=== PATIENT | female | born 1980 | race African-American/Black ===

== ENCOUNTER 2016-08-05 16:54 | Inpatient (IN) | payer MEDICARE, OTHER ==
[~2016-08-05] VITALS: Ht 160 cm; Wt 104.3 kg
[~2016-08-05 16:54] MED LIST: ALBUTEROL SULFAT2 MG PO; AMIODARONE HCL200 MG ORAL; AMIODARONE HCL400 M1 ORAL; ASPIRIN EC81 MG ORAL; ATORVASTATIN CA20 MG ORAL; CARVEDILOL3.125 MG ORAL; CORDARONE200 M1 ORAL; GABAPENTIN100 MG ORAL; GABAPENTIN300 MG ORAL; IBUPROFEN600 MG ORAL; KLONOPIN0.5 MG ORAL; LISINOPRIL5 MG ORAL; TRAMADOL HCL50 MG ORAL; TYLENOL325 MG ORAL; [UNRECOGNIZED DRUG - OTHER] PO
--- NOTE | 2016-08-05 17:33 | Emergency Room Report ---
History of Present Illness General Chief Complaint: Dizziness Source: Patient Present Illness HPI Patient presents with complaints of increased falls Increased general weakness Patient reports having a severe stroke back in 2012 Paralyze her left side patient reports that she does ambulate with some assistance Denies any vomiting or diarrhea she did complain of left-sided chest pain as well Has had increased dizziness over the past 3 days she feels that her balance is also increasingly off Chest pain is 3/10 heaviness left-sided denies any radiation Allergies: Coded Allergies: No Known Allergies (Unverified , 05/15/15) Patient History Past Medical History: see triage record Pertinent Family History: none Reviewed Nursing Documentation: PMH: Agreed, PSxH: Agreed Nursing Documentation-PMH Hx Cardiac Problems: Yes Hx Hypertension: Yes Hx Pacemaker: Yes Hx Asthma: Yes Hx Cancer: No Hx Gastrointestinal Problems: No Hx Neurological Problems: Yes Hx Cerebrovascular Accident: Yes - left sided deficit Hx Weakness: Yes - L side Review of Systems All Other Systems: negative except mentioned in HPI Physical Exam Vital Signs Date Time Temp Pulse Resp B/P Pulse Ox O2 Delivery O2 Flow Rate FiO2 08/05/16 16:54 98.6 95 16 116/88 99 Room Air Sp02 EP Interpretation: reviewed, normal General Appearance: no apparent distress Head: normocephalic, atraumatic Eyes: bilateral eye PERRL ENT: normal pharynx, no angioedema Neck: full range of motion, supple, thyroid normal Respiratory: lungs clear, normal breath sounds, no rhonchi Cardiovascular #1: regular rate, rhythm, no edema Gastrointestinal: non tender, soft Musculoskeletal: other - Patient has paralysis of her left side the left hand is contracted, patient has decreased movement of that side, patient does have some minimal movement of her left foot, and states that she does ambulate with some assistance, Neurologic: alert, oriented x3, responsive Skin: no rash, warm/dry Lymphatic: no adenopathy Medical Decision Making Diagnostic Impression: Primary Impression: ACS (acute coronary syndrome) Additional Impressions: Hemiparesis affecting left side as late effect of cerebrovascular accident HTN (hypertension) Dizziness ER Course Patient is a fairly complex patient with multiple differential to consideration including but not limited to cardiac cardiopulmonary, intracranial and vascular emergencies Patient's CT head does not show any obvious acute disease Blood work is at baseline levels Given the patient's multiple comorbidities and history consideration for CVA versus TIA is also made and the patient is a further inpatient care Labs Test 08/05/16 16:41 08/06/16 06:15 White Blood Count 5.1 K/UL (4.8-10.8) 4.0 K/UL (4.8-10.8) Red Blood Count 4.28 M/UL (4.20-5.40) 3.80 M/UL (4.20-5.40) Hemoglobin 11.4 G/DL (12.0-16.0) 10.3 G/DL (12.0-16.0) Hematocrit 37.3 % (37.0-47.0) 33.2 % (37.0-47.0) Mean Corpuscular Volume 87 FL (80-99) 87 FL (80-99) Mean Corpuscular Hemoglobin 26.7 PG (27.0-31.0) 27.0 PG (27.0-31.0) Mean Corpuscular Hemoglobin Concent 30.6 G/DL (32.0-36.0) 30.9 G/DL (32.0-36.0) Red Cell Distribution Width 15.9 % (11.6-14.8) 15.8 % (11.6-14.8) Platelet Count 98 K/UL (150-450) 181 K/UL (150-450) Mean Platelet Volume 7.9 FL (6.5-10.1) 7.4 FL (6.5-10.1) Neutrophils (%) (Auto) % (45.0-75.0) 59.0 % (45.0-75.0) Lymphocytes (%) (Auto) % (20.0-45.0) 24.9 % (20.0-45.0) Monocytes (%) (Auto) % (1.0-10.0) 15.5 % (1.0-10.0) Eosinophils (%) (Auto) % (0.0-3.0) 0.2 % (0.0-3.0) Basophils (%) (Auto) % (0.0-2.0) 0.5 % (0.0-2.0) Differential Total Cells Counted 100 Neutrophils % (Manual) 64 % (45-75) Lymphocytes % (Manual) 26 % (20-45) Monocytes % (Manual) 9 % (1-10) Eosinophils % (Manual) 0 % (0-3) Basophils % (Manual) 1 % (0-2) Band Neutrophils 0 % (0-8) Platelet Estimate Decreased Platelet Morphology Normal Hypochromasia 1+ Anisocytosis 1+ Sodium Level 139 mEQ/L (135-145) 142 mEQ/L (135-145) Potassium Level 4.6 mEQ/L (3.4-4.9) 4.4 mEQ/L (3.4-4.9) Chloride Level 103 mEQ/L (98-107) 106 mEQ/L (98-107) Carbon Dioxide Level 22 mEQ/L (20-30) 23 mEQ/L (20-30) Anion Gap 14 (5-15) 13 (5-15) Blood Urea Nitrogen 11 mg/dL (7-23) 10 mg/dL (7-23) Creatinine 1.2 mg/dL (0.5-0.9) 1.2 mg/dL (0.5-0.9) Estimat Glomerular Filtration Rate > 60 mL/min (>60) > 60 mL/min (>60) Glucose Level 80 mg/dL (74-106) 79 mg/dL (74-106) Calcium Level 8.4 mg/dL (8.6-10.2) 8.2 mg/dL (8.6-10.2) Total Bilirubin 0.3 mg/dL (0.0-1.2) Aspartate Amino Transf (AST/SGOT) 40 U/L (5-40) Alanine Aminotransferase (ALT/SGPT) 21 U/L (3-33) Alkaline Phosphatase 60 U/L (35-104) Total Creatine Kinase 194 U/L (26-140) Creatine Kinase MB 1.7 ng/mL (< 3.8) Creatine Kinase MB Relative Index 0.8 Troponin I < 0.30 ng/mL (<=0.30) < 0.30 ng/mL (<=0.30) Pro-B-Type Natriuretic Peptide 188 pg/mL (0-125) Total Protein 6.5 g/dL (6.6-8.7) Albumin 3.6 g/dL (3.5-5.2) Globulin 2.9 g/dL Albumin/Globulin Ratio 1.2 (1.0-2.7) EKG Diagnostic Results Rate: normal Rhythm: NSR ST Segments: other - Nonspecific ST and T-wave changes Rhythm Strip Diag. Results EP Interpretation: yes Rate: 77 Rhythm: NSR, no PVC's, no ectopy Chest X-Ray Diagnostic Results EP Interpretation: Yes Findings: no consolidation, no effusion, no pneumothorax Number of Views: 1 CT/MRI/US Diagnostic Results CT/MRI/US Diagnostic Results : Impression CT head no acute disease Last Vital Signs Date Time Temp Pulse Resp B/P Pulse Ox O2 Delivery O2 Flow Rate FiO2 08/05/16 16:54 98.6 95 16 116/88 99 Room Air Status: improved Disposition: ADMITTED INPATIENT Condition: Serious SALLY GUERRERO D.O. Aug 05, 2016 17:33
[2016-08-05 17:59] LABS: MEAN CORPUSCULAR HEMOGLOBIN 26.7 PG (27.0-31.0); MEAN CORPUSCULAR HGB CONC 30.6 G/DL (32.0-36.0); MEAN CORPUSCULAR VOLUME 87 FL (80-99); MEAN PLATELET VOLUME 7.9 FL (6.5-10.1); PLATELET COUNT 98 K/UL (150-450); RED BLOOD COUNT 4.28 M/UL (4.20-5.40); RED CELL DISTRIBUTION WIDTH 15.9 % (11.6-14.8); WHITE BLOOD COUNT 5.1 K/UL (4.8-10.8)
[2016-08-05 18:12] LABS: ALANINE AMINOTRANSFERASE 21 U/L (3-33); ALBUMIN/GLOBULIN RATIO 1.2 (1.0-2.7); ANION GAP 14 (5-15); ASPARTATE AMINO TRANSFERASE 40 U/L (5-40); CALCIUM 8.4 mg/dL (8.6-10.2); CARBON DIOXIDE 22 mEQ/L (20-30); CHLORIDE 103 mEQ/L (98-107); CREATININE 1.2 mg/dL (0.5-0.9); GLOMERULAR FILTRATION RATE > 60 mL/min (>60); HEMOLYSIS 31; POTASSIUM 4.6 mEQ/L (3.4-4.9); SODIUM 139 mEQ/L (135-145); TOTAL PROTEIN 6.5 g/dL (6.6-8.7)
[2016-08-05 18:15] LABS: TROPONIN I < 0.30 ng/mL (<=0.30)
[2016-08-05 18:23] VITALS: BP 138/79
[2016-08-05 18:23] LABS: CKMB 1.7 ng/mL (< 3.8)
[2016-08-05 18:53] LABS: ANISOCYTOSIS 1+; BASOPHILS % (MANUAL) 1 % (0-2); HYPOCHROMASIA 1+; LYMPHOCYTES % (MANUAL) 26 % (20-45); NEUTROPHILS % (MANUAL) 64 % (45-75); TOTAL CELLS COUNTED 100
[2016-08-05 18:54] LABS: BAND NEUTROPHILS % (MANUAL) 0 % (0-8); EOSINOPHILS % (MANUAL) 0 % (0-3); PLATELET ESTIMATE DECREASED; PLATELET MORPHOLOGY NORMAL
[2016-08-05 20:00] VITALS: BP 134/63
[2016-08-05] MEDS ORDERED: DiphenhydrAMINE 50mg/ml Inj IVP PRN (22:30)
[2016-08-06 00:34] VITALS: BP 123/65
[2016-08-06 04:13] VITALS: BP 129/76
[2016-08-06 07:08] LABS: BASOPHILS % (AUTO) 0.5 % (0.0-2.0); EOSINOPHILS % (AUTO) 0.2 % (0.0-3.0); LYMPHOCYTES % (AUTO) 24.9 % (20.0-45.0); MEAN CORPUSCULAR HGB CONC 30.9 G/DL (32.0-36.0); MEAN CORPUSCULAR VOLUME 87 FL (80-99); MEAN PLATELET VOLUME 7.4 FL (6.5-10.1); MONOCYTES % (AUTO) 15.5 % (1.0-10.0); PLATELET COUNT 181 K/UL (150-450); RED CELL DISTRIBUTION WIDTH 15.8 % (11.6-14.8); TROPONIN I < 0.30 ng/mL (<=0.30)
[2016-08-06 07:13] LABS: ANION GAP 13 (5-15); CALCIUM 8.2 mg/dL (8.6-10.2); CARBON DIOXIDE 23 mEQ/L (20-30); CHLORIDE 106 mEQ/L (98-107); CREATININE 1.2 mg/dL (0.5-0.9); GLOMERULAR FILTRATION RATE > 60 mL/min (>60); HEMOLYSIS 4; POTASSIUM 4.4 mEQ/L (3.4-4.9); SODIUM 142 mEQ/L (135-145)
[2016-08-06 08:17] VITALS: BP 124/64
--- NOTE | 2016-08-06 09:07 | Diagnostic Imaging Report ---
Indications: Dizziness, status post fall, history of prior CVA Technique: Spiral acquisitions obtained through the brain. Angled axial and coronal 5 x 5 mm slices were reconstructed. Total dose length product 1442 mGycm. CTDI vol(s) 7 mGy Comparison: 06/21/2016 Findings: Again demonstrated is a large area encephalomalacia involving much of the right frontal, parietal, and temporal lobes. This results in ex vacuo dilatation of the right lateral ventricle. Rightward midline shift is presumably also on an ex vacuo basis. No acute hemorrhage or edema. No mass effect or midline shift. Otherwise normal morales-white differentiation. Intact calvarium. Visualized orbits and sinuses are unremarkable. Findings are unchanged Impression: Large area of right hemispheric encephalomalacia, consistent with old right middle cerebral artery distribution infarct. Negative for acute intracranial bleed or mass effect This agrees with the preliminary interpretation provided overnight by Dr. Jung The CT scanner at [facility] is accredited by the [employer] and the scans are performed using protocols designed to limit radiation exposure to as low as reasonably achievable to attain images of sufficient resolution adequate for diagnostic evaluation.
[2016-08-06] MEDS: Amiodarone 200mg tab ORAL SCH (11:00)
[2016-08-06] MEDS: Albuterol 2mg Tab ORAL SCH ×4 (11:00→21:00)
[2016-08-06] MEDS: Aspirin EC 81mg tab ORAL SCH (11:00)
[2016-08-06] MEDS: Lisinopril 2.5mg tab ORAL SCH (11:00)
[2016-08-06 11:49] VITALS: BP 113/67
[2016-08-06] MEDS: Heparin 5000 units/ml inj SUBQ SCH ×2 (13:05→20:57)
[2016-08-06] MEDS: HYDROmorphone 1mg/ml Carpuject IVP PRN ×2 (13:10→18:06)
[2016-08-06] MEDS ORDERED: NS 275ml ONE (15:11)
[2016-08-06] MEDS ORDERED: Tubing IV Secondary IV ONE (15:11)
[2016-08-06] MEDS ORDERED: Albuterol ud Inhalation HHN PRN (15:15)
[2016-08-06 16:00] VITALS: BP 108/61
--- NOTE | 2016-08-06 17:30 | Cardiac Electrophysiology PN ---
Subjective Subjective [id number] Objective Last 24 Hour Vital Signs Date Time Temp Pulse Resp B/P Pulse Ox O2 Delivery O2 Flow Rate FiO2 08/06/16 17:04 57 08/06/16 16:00 97.5 57 20 108/61 100 Room Air 08/06/16 11:49 97.9 60 20 113/67 97 Room Air 08/06/16 11:00 160/62 08/06/16 11:00 98 140/62 08/06/16 08:17 97.9 61 20 124/64 99 Room Air 08/06/16 08:03 82 08/06/16 04:13 98.7 69 19 129/76 99 Room Air 08/06/16 04:00 56 08/06/16 00:34 98.2 73 18 123/65 100 Room Air 08/05/16 20:20 75 20 120/67 100 Room Air 08/05/16 20:00 97.5 73 18 134/63 100 Room Air 08/05/16 18:23 98.4 78 13 138/79 100 Room Air Intake and Output 08/05/16 08/06/16 19:00 07:00 Intake Total 0 ml Balance 0 ml Intake Oral 0 ml # Bowel Movements 1 Laboratory Tests Test 08/06/16 06:15 White Blood Count 4.0 K/UL (4.8-10.8) L Red Blood Count 3.80 M/UL (4.20-5.40) L Hemoglobin 10.3 G/DL (12.0-16.0) L Hematocrit 33.2 % (37.0-47.0) L Mean Corpuscular Volume 87 FL (80-99) Mean Corpuscular Hemoglobin 27.0 PG (27.0-31.0) Mean Corpuscular Hemoglobin Concent 30.9 G/DL (32.0-36.0) L Red Cell Distribution Width 15.8 % (11.6-14.8) H Platelet Count 181 K/UL (150-450) # Mean Platelet Volume 7.4 FL (6.5-10.1) Neutrophils (%) (Auto) 59.0 % (45.0-75.0) Lymphocytes (%) (Auto) 24.9 % (20.0-45.0) Monocytes (%) (Auto) 15.5 % (1.0-10.0) H Eosinophils (%) (Auto) 0.2 % (0.0-3.0) Basophils (%) (Auto) 0.5 % (0.0-2.0) Sodium Level 142 mEQ/L (135-145) Potassium Level 4.4 mEQ/L (3.4-4.9) Chloride Level 106 mEQ/L (98-107) Carbon Dioxide Level 23 mEQ/L (20-30) Anion Gap 13 (5-15) Blood Urea Nitrogen 10 mg/dL (7-23) Creatinine 1.2 mg/dL (0.5-0.9) H Estimat Glomerular Filtration Rate > 60 mL/min (>60) Glucose Level 79 mg/dL (74-106) Calcium Level 8.2 mg/dL (8.6-10.2) L Troponin I < 0.30 ng/mL (<=0.30) DIMITRIS PEDRO Aug 06, 2016 17:30
[2016-08-06] MEDS: CEFUROXIME 250 MG ORAL SCH (19:01)
[2016-08-06 20:00] VITALS: BP 106/60
--- NOTE | 2016-08-06 20:08 | History and Physical Report ---
DATE OF ADMISSION: 08/05/2016 CHIEF COMPLAINT: The patient is a 36-year-old, female, who presents with chief complaint of chest pain, sore throat, and cough. HISTORY OF PRESENT ILLNESS: It began on , 08/01/2016. The patient began to experience a sore throat. The patient also had dizziness. The patient was also having a nonproductive cough. The patient experienced frequent falls. On 08/05/2016, the patient began to experience chest pain. The patient presented to [facility]. The patient was admitted for chest pain to rule out acute coronary syndrome. PAST MEDICAL HISTORY: Significant for, 1. Coronary artery disease, status post myocardial infarction in 2011. 2. Hypertension. 3. History of cerebrovascular accident in 2011. 4. Left hemiparesis. 5. Hypercholesterolemia. 6. History of asthma. PAST SURGICAL HISTORY: Significant for pacemaker implantation in 2011. CURRENT MEDICATIONS: 1. Albuterol sulfate 2 mg one tablet p.o. 4 times daily. 2. Amiodarone 200 mg one tablet p.o. daily. 3. Aspirin 81 mg one tablet p.o. daily. 4. Atorvastatin 20 mg one tablet p.o. q.h.s. 5. Coreg 3.125 mg one tablet p.o. twice daily. 6. Klonopin 0.5 mg p.o. q.h.s. 7. Neurontin 300 mg one tablet p.o. 3 times daily. 8. Lisinopril 5 mg one tablet p.o. daily. ALLERGIES: No known drug allergies. SOCIAL HISTORY: The patient is single and is currently living in a board and care. The patient denies tobacco or alcohol use. The patient is disabled. REVIEW OF SYSTEMS: Constitutional: The patient denies weight loss or weight gain. The patient denies fevers or chills. HEENT: The patient complains of sore throat, as above. The patient denies headache or ear pain. Chest: The patient complains of some shortness of breath and a nonproductive cough. The patient denies wheezes. Abdomen: The patient denies nausea, vomiting, diarrhea, or constipation. Cardiovascular: The patient denies palpitations or chest pain. Genitourinary: The patient denies dysuria or increased frequency urination. Neuromuscular: The patient complains of generalized weakness with frequent falls. The patient denies seizures. PHYSICAL EXAMINATION: VITAL SIGNS: Temperature 98.7 degrees, respirations 19, pulse 69, and blood pressure 129/76. GENERAL: The patient is a well-developed, well-nourished, female, in no apparent distress. HEENT: Eyes, pupils are equal and responsive to light and accommodation. Extraocular movements are intact. NECK: Supple without lymphadenopathy. CHEST: Lungs are clear to auscultation bilaterally without wheezes or rales. CARDIOVASCULAR: Regular rhythm and rate. S1 and S2 normal without murmurs, rubs, or gallops. ABDOMEN: Soft, nontender, and nondistended. Positive bowel sounds. No evidence of hepatosplenomegaly. Currently, no rebound or guarding. EXTREMITIES: Negative for clubbing, cyanosis, or or edema. RECTAL/GENITAL: Refused. NEUROLOGICAL: The patient does have a left weakness when compared to the right. Motor strength is 3/5 on the left and 5/5 on the right. Deep tendon reflexes are 2+ plantar. LABORATORY AND DIAGNOSTIC DATA: WBC 5.1, hemoglobin 11.4, hematocrit 37.3, and platelets 98,000. Sodium 139, potassium 4.6, chloride 103, CO2 22, BUN 11, creatinine 1.2, and glucose 80. Troponin is normal less than 0.3. CT scan of the brain was reported within normal limits. ASSESSMENT: This is a 36-year-old female, 1. Chest pain. 2. Vertigo. 3. Pharyngitis. 4. Cough. 5. Hypertension. 6. Hypercholesterolemia. 7. Asthma. 8. Cerebrovascular disease. 9. Left hemiparesis. TREATMENT: 1. Chest pain. A Cardiology consultation was obtained with Dr. Julian Malagon. The patient was worked up for chest pain during a recent admission in 05/2016. The patient may require a Cardiolite stress test. We will follow recommendations of Cardiology. Serial troponin levels will be run. 2. Vertigo. This may be secondary to upper respiratory tract infection. Carotid duplex and Dopplers are pending. A CT scan of the brain was within normal limits. 3. Pharyngitis. The patient has been started empirically on Ceftin. 4. Cough. This may be secondary to bronchitis. The patient has been started on Ceftin as above. 5. Hypertension. Continue lisinopril and carvedilol as above. 6. Hypercholesterolemia. Continue Lipitor as above. 7. Asthma. The patient will be offered albuterol nebulizer q.4 hours p.r.n. 8. Cerebrovascular disease. 9. Left hemiparesis. Kiran Avila M.D. DR: IGNACIO JOB#: [id number] CC:
[2016-08-06] MEDS: clonazePAM 0.5mg tab ORAL SCH (20:56)
[2016-08-06] MEDS: Atorvastatin 20mg tab ORAL SCH (20:56)
[2016-08-07] VITALS: BP 104/56
--- NOTE | 2016-08-07 01:18 | Consultation ---
DATE OF CONSULTATION: 08/06/2016 CONSULTING PHYSICIAN: Julian Malagon M.D. REFERRING PHYSICIAN: Kiran Avila M.D. REASON FOR CONSULTATION: Syncope and chest pain. HISTORY OF PRESENT ILLNESS: The patient is a 36-year-old lady that I am familiar with multiple previous admissions. The patient has history of hypertension, coronary artery disease, history of stroke and left hemiplegia as well as history of [employer] defibrillator implantation in 2011 at [facility]. The patient presented to the hospital with weakness, dizziness, and syncope, and also complained of shortness of breath as well as mild chest discomfort. The patient was admitted to telemetry. Cardiology consultation was obtained for further evaluation. At the time of my evaluation, the patient denies any chest pain or shortness of breath. REVIEW OF SYSTEMS: Review of systems was performed and was negative other than what was mentioned in the history of present illness. PAST MEDICAL HISTORY: 1. Hypertension. 2. History of [employer] defibrillator in 2011. 3. Congestive heart failure. 4. History of supraventricular tachycardia. 5. Cerebrovascular accident with left hemiparesis. SOCIAL HISTORY: She lives at home. Does not smoke or drink alcohol. PHYSICAL EXAMINATION: VITAL SIGNS: Blood pressure 108/60, pulse 60, respirations 20, and temperature 97.5. HEAD AND NECK: Shows no JVD. LUNGS: Clear. CARDIOVASCULAR: Shows regular S1 and S2 with no gallop or murmur. Defibrillator in the left subclavian intact. ABDOMEN: Soft and nontender. EXTREMITIES: No pitting edema. LABORATORY AND DIAGNOSTIC DATA: White count of 4, hemoglobin 10.3, hematocrit 33, and platelet count 181,000. Sodium 142, potassium 4.4, BUN 10, creatinine 1.2. . Troponin negative x2. ASSESSMENT AND PLAN: 1. Atypical chest pain, the patient was ruled out for myocardial infarction already. Watch the patient on telemetry. Nuclear stress test in March 2016 showed nonischemic response, only fixed defect as well as old infarct. Her echocardiogram also in March 2016 showed ejection fraction 45% to 50%. We will repeat the echocardiogram. 2. Paroxysmal atrial fibrillation, . 3. Cardiomyopathy ejection fraction 40% on Coreg 3.125 mg b.i.d., lisinopril 5 mg daily, . 4. Hyperlipidemia on Lipitor. Status post [employer] defibrillator implantation. 5. History of cerebrovascular accident with left hemiparesis. Thank you very much, Dr. Avila, and Dr. Almonte, for allowing me to participate in the care of this patient. Please do not hesitate to contact me for any questions regarding my evaluation. Julian Malagon M.D. DR: Gideon JOB#: [id number] CC:
[2016-08-07 04:00] VITALS: BP 113/59
[2016-08-07] MEDS: CEFUROXIME 250 MG ORAL SCH ×2 (06:46→17:01)
[2016-08-07 08:00] VITALS: BP 132/79
[2016-08-07 08:10] LABS: BASOPHILS % (AUTO) 0.8 % (0.0-2.0); EOSINOPHILS % (AUTO) 0.4 % (0.0-3.0); LYMPHOCYTES % (AUTO) 29.5 % (20.0-45.0); MEAN CORPUSCULAR HEMOGLOBIN 27.3 PG (27.0-31.0); MEAN CORPUSCULAR HGB CONC 31.2 G/DL (32.0-36.0); MEAN CORPUSCULAR VOLUME 87 FL (80-99); MEAN PLATELET VOLUME 7.5 FL (6.5-10.1); NEUTROPHILS % (AUTO) 59.3 % (45.0-75.0); PLATELET COUNT 174 K/UL (150-450); RED BLOOD COUNT 3.78 M/UL (4.20-5.40); RED CELL DISTRIBUTION WIDTH 15.5 % (11.6-14.8); WHITE BLOOD COUNT 4.3 K/UL (4.8-10.8)
[2016-08-07 08:16] LABS: TROPONIN I < 0.30 ng/mL (<=0.30)
[2016-08-07 08:43] LABS: CALCIUM 8.5 mg/dL (8.6-10.2); CREATININE 1.3 mg/dL (0.5-0.9); GLOMERULAR FILTRATION RATE 56.2 mL/min (>60); POTASSIUM 4.4 mEQ/L (3.4-4.9)
[2016-08-07] MEDS: Heparin 5000 units/ml inj SUBQ SCH ×2 (09:45→21:08)
[2016-08-07] MEDS: Lisinopril 2.5mg tab ORAL SCH (09:45)
[2016-08-07] MEDS: Aspirin EC 81mg tab ORAL SCH (09:46)
[2016-08-07] MEDS: Albuterol 2mg Tab ORAL SCH ×4 (09:46→21:13)
[2016-08-07] MEDS: Amiodarone 200mg tab ORAL SCH (09:46)
[2016-08-07 12:00] VITALS: BP 130/75
--- NOTE | 2016-08-07 14:02 | Cardiology Report ---
APPROVED REPORT EKG Measurement Heart [id number] Normal sinus rhythm Septal infarct, age undetermined Abnormal ECG
--- NOTE | 2016-08-07 15:27 | Cardiac Electrophysiology PN ---
Assessment/Plan Assessment/Plan 1. Atypical chest pain, was ruled out for myocardial infarction . Watch the patient on telemetry. Nuclear stress test in March 2016 showed nonischemic response,. Her echocardiogram also in March 2016 showed ejection fraction 45% to 50%. Repeat echocardiogram pending. 2. Paroxysmal atrial fibrillation, in SR. 3. Cardiomyopathy ejection fraction 40% on Coreg 3.125 mg b.i.d., lisinopril 5 mg daily. 4. Hyperlipidemia on Lipitor. 5.Status post [employer] defibrillator implantation with Nl Fx. 6. History of cerebrovascular accident with left hemiparesis. SIRDHAR RN. Subjective Subjective Still complains of generalized pain. No arrhythmias on tele. Objective Last 24 Hour Vital Signs Date Time Temp Pulse Resp B/P Pulse Ox O2 Delivery O2 Flow Rate FiO2 08/07/16 12:00 98.6 65 20 130/75 100 Room Air 08/07/16 09:45 132/79 08/07/16 09:45 58 132/79 08/07/16 08:00 58 68 78 08/07/16 08:00 99.0 58 20 132/79 79 Room Air 08/07/16 07:45 63 08/07/16 04:00 57 08/07/16 04:00 97.5 62 16 113/59 100 Room Air 08/07/16 04:00 62 61 64 08/07/16 00:00 97.9 59 16 104/56 100 Room Air 08/07/16 00:00 59 64 08/06/16 20:54 64 106/60 08/06/16 20:00 97.7 64 18 106/60 100 Room Air 08/06/16 20:00 59 08/06/16 20:00 64 62 78 08/06/16 18:53 78 18 Room Air 21.0 100 08/06/16 17:04 57 08/06/16 16:00 97.5 57 20 108/61 100 Room Air 08/06/16 16:00 55 Intake and Output 08/06/16 08/07/16 19:00 07:00 Intake Total 240 ml 500 ml Output Total 800 ml Balance -560 ml 500 ml Intake Oral 240 ml 500 ml Output Urine Total 800 ml # Voids 2 Laboratory Tests Test 08/07/16 07:50 White Blood Count 4.3 K/UL (4.8-10.8) L Red Blood Count 3.78 M/UL (4.20-5.40) L Hemoglobin 10.3 G/DL (12.0-16.0) L Hematocrit 33.0 % (37.0-47.0) L Mean Corpuscular Volume 87 FL (80-99) Mean Corpuscular Hemoglobin 27.3 PG (27.0-31.0) Mean Corpuscular Hemoglobin Concent 31.2 G/DL (32.0-36.0) L Red Cell Distribution Width 15.5 % (11.6-14.8) H Platelet Count 174 K/UL (150-450) Mean Platelet Volume 7.5 FL (6.5-10.1) Neutrophils (%) (Auto) 59.3 % (45.0-75.0) Lymphocytes (%) (Auto) 29.5 % (20.0-45.0) Monocytes (%) (Auto) 10.0 % (1.0-10.0) Eosinophils (%) (Auto) 0.4 % (0.0-3.0) Basophils (%) (Auto) 0.8 % (0.0-2.0) Sodium Level 135 mEQ/L (135-145) Potassium Level 4.4 mEQ/L (3.4-4.9) Chloride Level 99 mEQ/L (98-107) Carbon Dioxide Level 21 mEQ/L (20-30) Anion Gap 15 (5-15) Blood Urea Nitrogen 10 mg/dL (7-23) Creatinine 1.3 mg/dL (0.5-0.9) H Estimat Glomerular Filtration Rate 56.2 mL/min (>60) Glucose Level 80 mg/dL (74-106) Calcium Level 8.5 mg/dL (8.6-10.2) L Troponin I < 0.30 ng/mL (<=0.30) Objective HEAD AND NECK: Shows no JVD. LUNGS: Clear. CARDIOVASCULAR: Shows regular S1 and S2 with no gallop or murmur. Defibrillator in the left subclavian intact. ABDOMEN: Soft and nontender. EXTREMITIES: No pitting edema. DIMITRIS PEDRO Aug 07, 2016 15:27
[2016-08-07 16:00] VITALS: BP 108/62
[2016-08-07] MEDS: HYDROmorphone 1mg/ml Carpuject IVP PRN ×2 (16:00→21:00)
--- NOTE | 2016-08-07 16:48 | Neurology Progress Note ---
Objective Physical Exam Last Vital Signs Date Time Temp Pulse Resp B/P Pulse Ox O2 Delivery O2 Flow Rate FiO2 08/07/16 12:00 59 65 77 08/07/16 12:00 98.6 20 130/75 100 Room Air 08/06/16 18:53 21.0 100 Laboratory Tests Test 08/07/16 07:50 White Blood Count 4.3 K/UL (4.8-10.8) L Red Blood Count 3.78 M/UL (4.20-5.40) L Hemoglobin 10.3 G/DL (12.0-16.0) L Hematocrit 33.0 % (37.0-47.0) L Mean Corpuscular Volume 87 FL (80-99) Mean Corpuscular Hemoglobin 27.3 PG (27.0-31.0) Mean Corpuscular Hemoglobin Concent 31.2 G/DL (32.0-36.0) L Red Cell Distribution Width 15.5 % (11.6-14.8) H Platelet Count 174 K/UL (150-450) Mean Platelet Volume 7.5 FL (6.5-10.1) Neutrophils (%) (Auto) 59.3 % (45.0-75.0) Lymphocytes (%) (Auto) 29.5 % (20.0-45.0) Monocytes (%) (Auto) 10.0 % (1.0-10.0) Eosinophils (%) (Auto) 0.4 % (0.0-3.0) Basophils (%) (Auto) 0.8 % (0.0-2.0) Sodium Level 135 mEQ/L (135-145) Potassium Level 4.4 mEQ/L (3.4-4.9) Chloride Level 99 mEQ/L (98-107) Carbon Dioxide Level 21 mEQ/L (20-30) Anion Gap 15 (5-15) Blood Urea Nitrogen 10 mg/dL (7-23) Creatinine 1.3 mg/dL (0.5-0.9) H Estimat Glomerular Filtration Rate 56.2 mL/min (>60) Glucose Level 80 mg/dL (74-106) Calcium Level 8.5 mg/dL (8.6-10.2) L Troponin I < 0.30 ng/mL (<=0.30) Impression/Recommendations Problems: (1) Hemiparesis affecting left side as late effect of cerebrovascular accident (2) Dizziness (3) Headache (4) AICD (automatic cardioverter/defibrillator) present Recommendations #[id number] TATIANA DURAN Aug 07, 2016 16:48
--- NOTE | 2016-08-07 17:25 | Internal Med Progress Note ---
Subjective Date of Service: Aug 07, 2016 Physician Name Kiran Campuzano Attending Physician Ángel Almonte MD Current Medications Medications (Trade) Dose Ordered Sig/Vilma Route PRN Reason Start Time Stop Time Status Last Admin Dose Admin Acetaminophen (Tylenol) 650 mg Q4H PRN ORAL Fever/Headache/Mild Pain 08/05/16 22:30 09/04/16 22:29 Albuterol Sulfate (Proventil) 2 mg QID ORAL 08/06/16 09:00 09/05/16 08:59 08/07/16 17:00 Albuterol Sulfate (Proventil) 2.5 mg Q4HR PRN HHN Shortness of Breath 08/06/16 15:15 08/11/16 15:14 Amiodarone HCl (Cordarone) 200 mg DAILY ORAL 08/06/16 09:00 09/05/16 08:59 08/07/16 09:46 Aspirin (Ecotrin) 81 mg DAILY ORAL 08/06/16 09:00 09/05/16 08:59 08/07/16 09:46 Atorvastatin Calcium (Lipitor) 20 mg BEDTIME ORAL 08/06/16 21:00 09/05/16 20:59 08/06/16 20:56 Carvedilol (Coreg) 3.125 mg EVERY 12 HOURS ORAL 08/06/16 09:00 09/05/16 08:59 08/07/16 09:45 Cefuroxime Axetil (Ceftin) 250 mg Q12H ORAL 08/06/16 18:30 08/13/16 18:29 08/07/16 17:01 Clonazepam (KlonoPIN) 0.5 mg BEDTIME ORAL 08/06/16 21:00 08/13/16 20:59 08/06/16 20:56 Diphenhydramine HCl (Benadryl) 25 mg Q4H PRN IVP Itching 08/05/16 22:30 09/04/16 22:29 Gabapentin (Neurontin) 300 mg THREE TIMES A DAY ORAL 08/06/16 09:00 09/05/16 08:59 08/07/16 17:00 Heparin Sodium (Porcine) (Heparin 5000 units/ml) 5,000 units EVERY 12 HOURS SUBQ 08/06/16 11:00 09/05/16 10:59 08/07/16 09:45 Hydromorphone HCl (Dilaudid) 1 mg Q4H PRN IVP For Pain 08/05/16 22:30 08/12/16 22:29 08/07/16 16:00 Lisinopril (Zestril) 5 mg DAILY ORAL 08/06/16 09:00 09/05/16 08:59 08/07/16 09:45 Allergies: Coded Allergies: No Known Allergies (Unverified , 05/15/15) ROS Limited/Unobtainable: No Constitutional: Reports: no symptoms HEENT: Reports: no symptoms Cardiovascular: Reports: no symptoms Respiratory: Reports: no symptoms Gastrointestinal/Abdominal: Reports: no symptoms Genitourinary: Reports: no symptoms Neurologic/Psychiatric: Reports: no symptoms Subjective Cover for Int Med-Dr Almonte. C/O sore throat Objective Last Vital Signs Date Time Temp Pulse Resp B/P Pulse Ox O2 Delivery O2 Flow Rate FiO2 08/07/16 16:00 97.7 68 15 108/62 99 Room Air 08/06/16 18:53 21.0 100 General Appearance: WD/WN, no apparent distress, alert EENT: PERRL/EOMI, normal ENT inspection Neck: non-tender, normal alignment, supple Cardiovascular: normal peripheral pulses, normal rate, regular rhythm, no gallop/murmur, no JVD Respiratory/Chest: chest wall non-tender, lungs clear, normal breath sounds, no respiratory distress, no accessory muscle use Abdomen: normal bowel sounds, non tender, soft, no organomegaly, no mass Extremities: other - left hemiparesis 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 Skin: normal pigmentation, warm/dry Laboratory Tests Test 08/07/16 07:50 White Blood Count 4.3 K/UL (4.8-10.8) L Red Blood Count 3.78 M/UL (4.20-5.40) L Hemoglobin 10.3 G/DL (12.0-16.0) L Hematocrit 33.0 % (37.0-47.0) L Mean Corpuscular Volume 87 FL (80-99) Mean Corpuscular Hemoglobin 27.3 PG (27.0-31.0) Mean Corpuscular Hemoglobin Concent 31.2 G/DL (32.0-36.0) L Red Cell Distribution Width 15.5 % (11.6-14.8) H Platelet Count 174 K/UL (150-450) Mean Platelet Volume 7.5 FL (6.5-10.1) Neutrophils (%) (Auto) 59.3 % (45.0-75.0) Lymphocytes (%) (Auto) 29.5 % (20.0-45.0) Monocytes (%) (Auto) 10.0 % (1.0-10.0) Eosinophils (%) (Auto) 0.4 % (0.0-3.0) Basophils (%) (Auto) 0.8 % (0.0-2.0) Sodium Level 135 mEQ/L (135-145) Potassium Level 4.4 mEQ/L (3.4-4.9) Chloride Level 99 mEQ/L (98-107) Carbon Dioxide Level 21 mEQ/L (20-30) Anion Gap 15 (5-15) Blood Urea Nitrogen 10 mg/dL (7-23) Creatinine 1.3 mg/dL (0.5-0.9) H Estimat Glomerular Filtration Rate 56.2 mL/min (>60) Glucose Level 80 mg/dL (74-106) Calcium Level 8.5 mg/dL (8.6-10.2) L Troponin I < 0.30 ng/mL (<=0.30) Intake and Output 08/06/16 08/07/16 19:00 07:00 Intake Total 240 ml 500 ml Output Total 800 ml Balance -560 ml 500 ml Intake Oral 240 ml 500 ml Output Urine Total 800 ml # Voids 2 Assessment/Plan Problem List: (1) Hypercholesteremia Assessment & Plan: Cont Lipitor (2) Asthma (3) Pharyngitis Assessment & Plan: Cont ceftin. (4) Chest pain Assessment & Plan: Ruled out for [place] - see cardiology note. (5) Dizziness (6) Cough (7) HTN (hypertension) Assessment & Plan: Cont zestril (8) Left hemiparesis (9) Cerebral vascular disease (10) Vertigo Assessment & Plan: See neuro note. Status: progressing, not improved KIRAN CAMPUZANO Aug 07, 2016 17:25
[2016-08-07 20:09] VITALS: BP 115/56
[2016-08-07] MEDS: Atorvastatin 20mg tab ORAL SCH (20:59)
[2016-08-07] MEDS: clonazePAM 0.5mg tab ORAL SCH (21:00)
--- NOTE | 2016-08-07 22:18 | Consultation ---
DATE OF CONSULTATION: 08/07/2016 NEUROLOGIC CONSULTATION: REQUESTING PHYSICIAN: Ángel Almonte M.D. HISTORY OF PRESENT ILLNESS: The patient is a 36-year-old female with a history of previous stroke now presenting with intermittent episodes of positional headaches and dizziness with no evidence of vertigo. Orthostatic blood pressure measured today revealed a supine position systolic 130 and sitting position 115. The patient currently treated for increasing generalized weakness and frequent falls, but also sore throat and nonproductive cough. She was admitted as she developed chest pain. The patient's vital signs on admission remained stable. She was afebrile. She had a stat CT of the brain done this revealed old extensive ischemic encephalomalacia right MCA distribution. Lab work included CBC studies with low MCV and MCH. Chemistry panel and creatinine 1.2. BNP of and CPK of 194. Normal troponin. Since admission till present, there were no further changes in her condition. She was stable. Her chest pain was atypical. She had evidence of paroxysmal atrial fibrillation. PAST MEDICAL HISTORY: The patient has a history of hyperlipidemia and paroxysmal atrial fibrillation. She is status post defibrillator implant. In 2011, she underwent a stroke with left hemiparesis, aphasia. SOCIAL HISTORY: Lives with her family. No alcohol. No drug abuse. Nonsmoker. FAMILY HISTORY: Noncontributory. REVIEW OF SYSTEMS: Generalized weakness, tiredness, intermittent headaches and dizziness predominantly when standing up from supine position. No loss of consciousness. No vertigo described. Intermittent chest pains. Denies abdominal pain or discomfort. No urine or bowel incontinence. PHYSICAL EXAMINATION: GENERAL: The patient is a well-developed and well-nourished young lady, not in acute distress, lying comfortably in bed. VITAL SIGNS: Blood pressure 130/86 and respirations 14. HEENT: Head normocephalic. No evidence of trauma. Eyes, ears, and throat are clear. NECK: Supple. No meningeal signs. MUSCULOSKELETAL: Unremarkable. There is no deformities except presence of flexor contracture left hand. MENTAL STATUS: She is alert and oriented x3 with no evidence of aphasia. Speech dysarthric . CRANIAL NERVES: Cranial nerves II: Pupils both responding to light and accommodation. Extraocular movement intact. No nystagmus. CRANIAL NERVES V: Normal corneal responses. CRANIAL NERVE VII: Slight drooped left nasolabial fold. CRANIAL IX THROUGH XII: Tongue is in midline. Symmetric palate elevation. MOTOR EXAMINATION: Revealed increased muscle tone. Rigidity in left upper and left lower extremity with weakness 3+/5 left upper extremity. A 4-/5 left lower extremity. Left footdrop, left hand flexor contracture. SENSORY: Decreased response to pin stimulation left arm. Deep reflexes 3+ on the left and 2+ on the right. Plantar responses mute on the left. Gait not tested. IMPRESSION: 1. Status post right middle cerebral artery distribution ischemic stroke with residual dysarthria and left hemiparesis. 2. Intermittent positional dizziness and headache most likely represent orthostatic hypotension. 3. Renal insufficiency. 4. Paroxysmal atrial fibrillation, on defibrillator. 5. Hyperlipidemia. RECOMMENDATIONS: The patient has no evidence of neurological progression. Her current examination compatible with a baseline. The patient has evidence of orthostatic hypotension which may explain positional dizziness and headache. The patient encouraged to daily conditioning exercises, remained upright position, p.o. hydration, continue with the current treatment. Thank you for allowing me to see this interesting patient in neurological consultation . Sebastian Savage M.D. DR: Mayank JOB#: [id number] CC:
[2016-08-07] MEDS ORDERED: Promethazine/Codeine 5ml UD ORAL PRN (22:30)
[2016-08-08] VITALS (8 sets, daily range): BP systolic 103–127; BP diastolic 54–99
[2016-08-08] MEDS: CEFUROXIME 250 MG ORAL SCH ×2 (06:50→17:31)
[2016-08-08 07:03] LABS: BASOPHILS % (AUTO) 0.8 % (0.0-2.0); EOSINOPHILS % (AUTO) 0.3 % (0.0-3.0); LYMPHOCYTES % (AUTO) 28.9 % (20.0-45.0); MEAN CORPUSCULAR HEMOGLOBIN 27.4 PG (27.0-31.0); MEAN CORPUSCULAR HGB CONC 31.3 G/DL (32.0-36.0); MEAN CORPUSCULAR VOLUME 87 FL (80-99); MEAN PLATELET VOLUME 7.2 FL (6.5-10.1); MONOCYTES % (AUTO) 12.2 % (1.0-10.0); NEUTROPHILS % (AUTO) 57.8 % (45.0-75.0); PLATELET COUNT 166 K/UL (150-450); RED BLOOD COUNT 3.58 M/UL (4.20-5.40); RED CELL DISTRIBUTION WIDTH 15.2 % (11.6-14.8); WHITE BLOOD COUNT 3.8 K/UL (4.8-10.8)
[2016-08-08 07:34] LABS: CALCIUM 8.3 mg/dL (8.6-10.2); CREATININE 1.3 mg/dL (0.5-0.9); GLOMERULAR FILTRATION RATE 56.2 mL/min (>60); POTASSIUM 4.3 mEQ/L (3.4-4.9)
[2016-08-08] MEDS: Lisinopril 2.5mg tab ORAL SCH (08:49)
[2016-08-08] MEDS: Amiodarone 200mg tab ORAL SCH (08:49)
[2016-08-08] MEDS: Albuterol 2mg Tab ORAL SCH ×4 (08:49→20:31)
[2016-08-08] MEDS: Aspirin EC 81mg tab ORAL SCH (08:49)
[2016-08-08] MEDS: Heparin 5000 units/ml inj SUBQ SCH ×2 (08:50→20:32)
--- NOTE | 2016-08-08 14:12 | Internal Med Progress Note ---
Subjective Date of Service: Aug 08, 2016 Physician Name Kathy Campuzano Attending Physician Ángel Almonte MD Current Medications Medications (Trade) Dose Ordered Sig/Vilma Route PRN Reason Start Time Stop Time Status Last Admin Dose Admin Acetaminophen (Tylenol) 650 mg Q4H PRN ORAL Fever/Headache/Mild Pain 08/05/16 22:30 09/04/16 22:29 Albuterol Sulfate (Proventil) 2 mg QID ORAL 08/06/16 09:00 09/05/16 08:59 08/08/16 12:17 Albuterol Sulfate (Proventil) 2.5 mg Q4HR PRN HHN Shortness of Breath 08/06/16 15:15 08/11/16 15:14 Amiodarone HCl (Cordarone) 200 mg DAILY ORAL 08/06/16 09:00 09/05/16 08:59 08/08/16 08:49 Aspirin (Ecotrin) 81 mg DAILY ORAL 08/06/16 09:00 09/05/16 08:59 08/08/16 08:49 Atorvastatin Calcium (Lipitor) 20 mg BEDTIME ORAL 08/06/16 21:00 09/05/16 20:59 08/07/16 20:59 Carvedilol (Coreg) 3.125 mg EVERY 12 HOURS ORAL 08/06/16 09:00 09/05/16 08:59 08/08/16 08:49 Cefuroxime Axetil (Ceftin) 250 mg Q12H ORAL 08/06/16 18:30 08/13/16 18:29 08/08/16 06:50 Clonazepam (KlonoPIN) 0.5 mg BEDTIME ORAL 08/06/16 21:00 08/13/16 20:59 08/07/16 21:00 Diphenhydramine HCl (Benadryl) 25 mg Q4H PRN IVP Itching 08/05/16 22:30 09/04/16 22:29 Gabapentin (Neurontin) 300 mg THREE TIMES A DAY ORAL 08/06/16 09:00 09/05/16 08:59 08/08/16 12:17 Heparin Sodium (Porcine) (Heparin 5000 units/ml) 5,000 units EVERY 12 HOURS SUBQ 08/06/16 11:00 09/05/16 10:59 08/08/16 08:50 Hydromorphone HCl (Dilaudid) 1 mg Q4H PRN IVP For Pain 08/05/16 22:30 08/12/16 22:29 08/07/16 21:00 Lisinopril (Zestril) 5 mg DAILY ORAL 08/06/16 09:00 09/05/16 08:59 08/08/16 08:49 Promethazine HCl/ Codeine (Phenergan with Codeine) 5 ml Q6H PRN ORAL For Cough 08/07/16 22:30 09/06/16 22:29 Allergies: Coded Allergies: No Known Allergies (Unverified , 05/15/15) ROS Limited/Unobtainable: No Constitutional: Reports: no symptoms HEENT: Reports: no symptoms Cardiovascular: Reports: no symptoms Respiratory: Reports: shortness of breath Gastrointestinal/Abdominal: Reports: no symptoms Genitourinary: Reports: no symptoms Neurologic/Psychiatric: Reports: no symptoms Subjective Cover for Int Christopher-Dr Almonte. C/O sore throat Objective Last Vital Signs Date Time Temp Pulse Resp B/P Pulse Ox O2 Delivery O2 Flow Rate FiO2 08/08/16 11:34 97.9 67 18 107/62 100 Room Air 08/06/16 18:53 21.0 100 Laboratory Tests Test 08/08/16 06:10 White Blood Count 3.8 K/UL (4.8-10.8) L Red Blood Count 3.58 M/UL (4.20-5.40) L Hemoglobin 9.8 G/DL (12.0-16.0) L Hematocrit 31.3 % (37.0-47.0) L Mean Corpuscular Volume 87 FL (80-99) Mean Corpuscular Hemoglobin 27.4 PG (27.0-31.0) Mean Corpuscular Hemoglobin Concent 31.3 G/DL (32.0-36.0) L Red Cell Distribution Width 15.2 % (11.6-14.8) H Platelet Count 166 K/UL (150-450) Mean Platelet Volume 7.2 FL (6.5-10.1) Neutrophils (%) (Auto) 57.8 % (45.0-75.0) Lymphocytes (%) (Auto) 28.9 % (20.0-45.0) Monocytes (%) (Auto) 12.2 % (1.0-10.0) H Eosinophils (%) (Auto) 0.3 % (0.0-3.0) Basophils (%) (Auto) 0.8 % (0.0-2.0) Sodium Level 137 mEQ/L (135-145) Potassium Level 4.3 mEQ/L (3.4-4.9) Chloride Level 102 mEQ/L (98-107) Carbon Dioxide Level 24 mEQ/L (20-30) Anion Gap 11 (5-15) Blood Urea Nitrogen 11 mg/dL (7-23) Creatinine 1.3 mg/dL (0.5-0.9) H Estimat Glomerular Filtration Rate 56.2 mL/min (>60) Glucose Level 82 mg/dL (74-106) Calcium Level 8.3 mg/dL (8.6-10.2) L Intake and Output 08/07/16 08/08/16 19:00 07:00 Intake Total 260 ml 540 ml Balance 260 ml 540 ml Intake Oral 260 ml 540 ml # Voids 2 5 # Bowel Movements 1 Objective General Appearance: WD/WN, no apparent distress, alert EENT: PERRL/EOMI, normal ENT inspection Neck: non-tender, normal alignment, supple Cardiovascular: normal peripheral pulses, normal rate, regular rhythm, no gallop/murmur, no JVD Respiratory/Chest: chest wall non-tender, lungs clear, normal breath sounds, no respiratory distress, no accessory muscle use Abdomen: normal bowel sounds, non tender, soft, no organomegaly, no mass Extremities: other - left hemiparesis 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 (4) Chest pain Assessment & Plan: Ruled out for [place] - see cardiology note. (5) Dizziness (6) Cough (7) HTN (hypertension) Assessment & Plan: Cont zestril (8) Left hemiparesis (9) Cerebral vascular disease (10) Vertigo Assessment & Plan: See neuro note. Status: salomon CAMPUZANOKATHY Aug 08, 2016 14:12
[2016-08-08] MEDS ORDERED: Lidocaine 2% Visc 15ml soln ORAL PRN (14:30)
--- NOTE | 2016-08-08 14:36 | Diagnostic Imaging Report ---
Indication: Chest pain Technique: One view of the chest Comparison: 07/02/2016 Findings: Lungs and pleural spaces are clear. There is left chest unifocal AICD. The heart is borderline enlarged. No significant change Impression: No acute process Borderline cardiomegaly AICD This agrees with the preliminary interpretation provided by the emergency room physician
--- NOTE | 2016-08-08 14:36 | Cardiac Electrophysiology PN ---
Assessment/Plan Assessment/Plan 1. Atypical chest pain, was ruled out for myocardial infarction . Nuclear stress test in March 2016 showed nonischemic response. Her echocardiogram also in March 2016 showed ejection fraction 45% to 50%. Repeat echocardiogram pending.Part of generalized body ache. 2. Paroxysmal atrial fibrillation, in SR. 3. Cardiomyopathy ejection fraction 40% on Coreg 3.125 mg b.i.d., lisinopril 5 mg daily. 4. Hyperlipidemia on Lipitor. 5. Status post [facility] [place] defibrillator implantation with Nl Fx.No ICD shocks. 6. Cerebrovascular accident with left hemiparesis. SRIDHAR RN. Subjective Subjective Still has generalized body pain. No arrhythmias on tele.RN at bedside. Objective Last 24 Hour Vital Signs Date Time Temp Pulse Resp B/P Pulse Ox O2 Delivery O2 Flow Rate FiO2 08/08/16 12:00 67 71 81 08/08/16 11:31 69 08/08/16 08:49 127/80 08/08/16 08:49 68 127/80 08/08/16 08:13 68 16 Room Air 08/08/16 08:00 63 70 76 08/08/16 08:00 98.1 63 18 127/80 99 Room Air 08/08/16 07:56 69 08/08/16 04:00 98.1 60 18 106/54 100 Room Air 08/08/16 04:00 60 59 08/08/16 04:00 60 08/08/16 00:02 69 64 08/08/16 00:00 98.1 69 16 111/58 100 Room Air 08/07/16 20:59 80 108/69 08/07/16 20:11 73 80 91 08/07/16 20:09 97.5 73 15 115/56 98 Room Air 08/07/16 20:04 68 18 Room Air 08/07/16 20:00 74 08/07/16 16:00 97.7 68 15 108/62 99 Room Air 08/07/16 16:00 69 08/07/16 16:00 68 80 91 Intake and Output 08/07/16 08/08/16 19:00 07:00 Intake Total 260 ml 540 ml Balance 260 ml 540 ml Intake Oral 260 ml 540 ml # Voids 2 5 # Bowel Movements 1 Laboratory Tests Test 08/08/16 06:10 White Blood Count 3.8 K/UL (4.8-10.8) L Red Blood Count 3.58 M/UL (4.20-5.40) L Hemoglobin 9.8 G/DL (12.0-16.0) L Hematocrit 31.3 % (37.0-47.0) L Mean Corpuscular Volume 87 FL (80-99) Mean Corpuscular Hemoglobin 27.4 PG (27.0-31.0) Mean Corpuscular Hemoglobin Concent 31.3 G/DL (32.0-36.0) L Red Cell Distribution Width 15.2 % (11.6-14.8) H Platelet Count 166 K/UL (150-450) Mean Platelet Volume 7.2 FL (6.5-10.1) Neutrophils (%) (Auto) 57.8 % (45.0-75.0) Lymphocytes (%) (Auto) 28.9 % (20.0-45.0) Monocytes (%) (Auto) 12.2 % (1.0-10.0) H Eosinophils (%) (Auto) 0.3 % (0.0-3.0) Basophils (%) (Auto) 0.8 % (0.0-2.0) Sodium Level 137 mEQ/L (135-145) Potassium Level 4.3 mEQ/L (3.4-4.9) Chloride Level 102 mEQ/L (98-107) Carbon Dioxide Level 24 mEQ/L (20-30) Anion Gap 11 (5-15) Blood Urea Nitrogen 11 mg/dL (7-23) Creatinine 1.3 mg/dL (0.5-0.9) H Estimat Glomerular Filtration Rate 56.2 mL/min (>60) Glucose Level 82 mg/dL (74-106) Calcium Level 8.3 mg/dL (8.6-10.2) L Current Medications Medications (Trade) Dose Ordered Sig/Vilma Route PRN Reason Start Time Stop Time Status Last Admin Dose Admin Acetaminophen (Tylenol) 650 mg Q4H PRN ORAL Fever/Headache/Mild Pain 08/05/16 22:30 09/04/16 22:29 Albuterol Sulfate (Proventil) 2 mg QID ORAL 08/06/16 09:00 09/05/16 08:59 08/08/16 12:17 Albuterol Sulfate (Proventil) 2.5 mg Q4HR PRN HHN Shortness of Breath 08/06/16 15:15 08/11/16 15:14 Amiodarone HCl (Cordarone) 200 mg DAILY ORAL 08/06/16 09:00 09/05/16 08:59 08/08/16 08:49 Aspirin (Ecotrin) 81 mg DAILY ORAL 08/06/16 09:00 09/05/16 08:59 08/08/16 08:49 Atorvastatin Calcium (Lipitor) 20 mg BEDTIME ORAL 08/06/16 21:00 09/05/16 20:59 08/07/16 20:59 Carvedilol (Coreg) 3.125 mg EVERY 12 HOURS ORAL 08/06/16 09:00 09/05/16 08:59 08/08/16 08:49 Cefuroxime Axetil (Ceftin) 250 mg Q12H ORAL 08/06/16 18:30 08/13/16 18:29 08/08/16 06:50 Clonazepam (KlonoPIN) 0.5 mg BEDTIME ORAL 08/06/16 21:00 08/13/16 20:59 08/07/16 21:00 Diphenhydramine HCl (Benadryl) 25 mg Q4H PRN IVP Itching 08/05/16 22:30 09/04/16 22:29 Gabapentin (Neurontin) 300 mg THREE TIMES A DAY ORAL 08/06/16 09:00 09/05/16 08:59 08/08/16 12:17 Heparin Sodium (Porcine) (Heparin 5000 units/ml) 5,000 units EVERY 12 HOURS SUBQ 08/06/16 11:00 09/05/16 10:59 08/08/16 08:50 Hydromorphone HCl (Dilaudid) 1 mg Q4H PRN IVP For Pain 08/05/16 22:30 08/12/16 22:29 08/07/16 21:00 Lidocaine HCl (Xylocaine Viscous) 15 ml Q4H PRN ORAL For Pain 08/08/16 14:30 09/07/16 14:29 UNV Lisinopril (Zestril) 5 mg DAILY ORAL 08/06/16 09:00 09/05/16 08:59 08/08/16 08:49 Promethazine HCl/ Codeine (Phenergan with Codeine) 5 ml Q6H PRN ORAL For Cough 08/07/16 22:30 09/06/16 22:29 Objective HEAD AND NECK: Shows no JVD. LUNGS: Clear. CARDIOVASCULAR: Shows regular S1 and S2 with no gallop or murmur. Defibrillator in the left subclavian intact. ABDOMEN: Soft and nontender. EXTREMITIES: No pitting edema. DIMITRIS PEDRO Aug 08, 2016 14:36
--- NOTE | 2016-08-08 14:37 | Diagnostic Imaging Report ---
Indication: COUGH Technique: 2 views of the chest Comparison: 07/28/2016 Findings: Left chest AICD is again demonstrated. Lungs and pleural spaces remain clear. Heart size is normal. No significant interim change Impression: No acute process
[2016-08-08] MEDS: HYDROmorphone 1mg/ml Carpuject IVP PRN (16:29)
[2016-08-08] MEDS: clonazePAM 0.5mg tab ORAL SCH (20:31)
[2016-08-08] MEDS: Atorvastatin 20mg tab ORAL SCH (20:31)
[2016-08-09] VITALS (7 sets, daily range): BP systolic 106–130; BP diastolic 60–80
[2016-08-09] MEDS ORDERED: Albuterol ud Inhalation HHN PRN (01:00)
[2016-08-09] MEDS ORDERED: Promethazine/Codeine 5ml UD ORAL PRN (01:03)
[2016-08-09] MEDS ORDERED: DiphenhydrAMINE 50mg/ml Inj IVP PRN (01:06)
[2016-08-09] MEDS ORDERED: Lidocaine 2% Visc 15ml soln ORAL PRN (01:07)
[2016-08-09] MEDS: CEFUROXIME 250 MG ORAL SCH ×2 (05:35→18:37)
[2016-08-09 07:57] LABS: BASOPHILS % (AUTO) 0.7 % (0.0-2.0); EOSINOPHILS % (AUTO) 0.2 % (0.0-3.0); LYMPHOCYTES % (AUTO) 23.9 % (20.0-45.0); MEAN CORPUSCULAR HGB CONC 30.6 G/DL (32.0-36.0); MEAN CORPUSCULAR VOLUME 88 FL (80-99); MEAN PLATELET VOLUME 7.4 FL (6.5-10.1); MONOCYTES % (AUTO) 7.5 % (1.0-10.0); NEUTROPHILS % (AUTO) 67.7 % (45.0-75.0); PLATELET COUNT 194 K/UL (150-450); RED BLOOD COUNT 3.96 M/UL (4.20-5.40); RED CELL DISTRIBUTION WIDTH 15.6 % (11.6-14.8); WHITE BLOOD COUNT 4.3 K/UL (4.8-10.8)
[2016-08-09 08:15] LABS: CALCIUM 9.2 mg/dL (8.6-10.2); CREATININE 1.3 mg/dL (0.5-0.9); GLOMERULAR FILTRATION RATE 56.2 mL/min (>60); POTASSIUM 4.4 mEQ/L (3.4-4.9)
[2016-08-09] MEDS: HYDROmorphone 1mg/ml Carpuject IVP PRN ×3 (08:23→21:26)
[2016-08-09] MEDS: Aspirin EC 81mg tab ORAL SCH (08:31)
[2016-08-09] MEDS: Amiodarone 200mg tab ORAL SCH (08:31)
[2016-08-09] MEDS: Lisinopril 2.5mg tab ORAL SCH (08:32)
[2016-08-09] MEDS: Heparin 5000 units/ml inj SUBQ SCH ×2 (08:33→21:23)
[2016-08-09] MEDS: Albuterol 2mg Tab ORAL SCH ×4 (12:07→21:25)
--- NOTE | 2016-08-09 17:42 | Internal Med Progress Note ---
Subjective Date of Service: Aug 09, 2016 Physician Name Kathy Campuzano Attending Physician Ángel Almonte MD Current Medications Medications (Trade) Dose Ordered Sig/Vilma Route PRN Reason Start Time Stop Time Status Last Admin Dose Admin Acetaminophen (Tylenol) 650 mg Q4H PRN ORAL Fever/Headache/Mild Pain 08/09/16 01:03 09/08/16 01:02 Albuterol Sulfate (Proventil) 2 mg QID ORAL 08/09/16 09:00 09/08/16 08:59 08/09/16 12:07 Albuterol Sulfate (Proventil) 2.5 mg Q4H PRN HHN Shortness of Breath 08/09/16 01:00 08/14/16 00:59 Amiodarone HCl (Cordarone) 200 mg DAILY ORAL 08/09/16 09:00 09/08/16 08:59 08/09/16 08:31 Aspirin (Ecotrin) 81 mg DAILY ORAL 08/09/16 09:00 09/08/16 08:59 08/09/16 08:31 Atorvastatin Calcium (Lipitor) 20 mg BEDTIME ORAL 08/09/16 21:00 09/08/16 20:59 Carvedilol (Coreg) 3.125 mg EVERY 12 HOURS ORAL 08/09/16 09:00 09/08/16 08:59 08/09/16 08:31 Cefuroxime Axetil (Ceftin) 250 mg Q12H ORAL 08/09/16 06:30 08/16/16 06:29 08/09/16 05:35 Clonazepam (KlonoPIN) 0.5 mg BEDTIME ORAL 08/09/16 21:00 08/16/16 20:59 Diphenhydramine HCl (Benadryl) 25 mg Q4H PRN IVP Itching 08/09/16 01:06 09/08/16 01:05 Gabapentin (Neurontin) 300 mg THREE TIMES A DAY ORAL 08/09/16 09:00 09/08/16 08:59 08/09/16 13:57 Heparin Sodium (Porcine) (Heparin 5000 units/ml) 5,000 units EVERY 12 HOURS SUBQ 08/09/16 09:00 09/08/16 08:59 08/09/16 08:33 Hydromorphone HCl (Dilaudid) 1 mg Q4H PRN IVP For Pain 08/09/16 01:07 08/16/16 01:06 08/09/16 12:12 Lidocaine HCl (Xylocaine Viscous) 15 ml Q4H PRN ORAL For Throat Pain 08/09/16 01:07 09/08/16 01:06 Lisinopril (Zestril) 5 mg DAILY ORAL 08/09/16 09:00 09/08/16 08:59 08/09/16 08:32 Promethazine HCl/ Codeine (Phenergan with Codeine) 5 ml Q6H PRN ORAL For Cough 08/09/16 01:03 09/08/16 01:02 Allergies: Coded Allergies: No Known Allergies (Unverified , 05/15/15) ROS Limited/Unobtainable: No Constitutional: Reports: no symptoms HEENT: Reports: no symptoms Cardiovascular: Reports: chest pain Respiratory: Reports: no symptoms Gastrointestinal/Abdominal: Reports: no symptoms Genitourinary: Reports: no symptoms Neurologic/Psychiatric: Reports: no symptoms Subjective Cover for Int Christopher-Dr Almonte. C/O sore throat Objective Last Vital Signs Date Time Temp Pulse Resp B/P Pulse Ox O2 Delivery O2 Flow Rate FiO2 08/09/16 14:15 97.0 65 18 130/78 99 Room Air 94.0 08/06/16 18:53 100 Laboratory Tests Test 08/09/16 06:45 White Blood Count 4.3 K/UL (4.8-10.8) L Red Blood Count 3.96 M/UL (4.20-5.40) L Hemoglobin 10.7 G/DL (12.0-16.0) L Hematocrit 34.9 % (37.0-47.0) L Mean Corpuscular Volume 88 FL (80-99) Mean Corpuscular Hemoglobin 27.0 PG (27.0-31.0) Mean Corpuscular Hemoglobin Concent 30.6 G/DL (32.0-36.0) L Red Cell Distribution Width 15.6 % (11.6-14.8) H Platelet Count 194 K/UL (150-450) Mean Platelet Volume 7.4 FL (6.5-10.1) Neutrophils (%) (Auto) 67.7 % (45.0-75.0) Lymphocytes (%) (Auto) 23.9 % (20.0-45.0) Monocytes (%) (Auto) 7.5 % (1.0-10.0) Eosinophils (%) (Auto) 0.2 % (0.0-3.0) Basophils (%) (Auto) 0.7 % (0.0-2.0) Sodium Level 137 mEQ/L (135-145) Potassium Level 4.4 mEQ/L (3.4-4.9) Chloride Level 99 mEQ/L (98-107) Carbon Dioxide Level 27 mEQ/L (20-30) Anion Gap 11 (5-15) Blood Urea Nitrogen 9 mg/dL (7-23) Creatinine 1.3 mg/dL (0.5-0.9) H Estimat Glomerular Filtration Rate 56.2 mL/min (>60) Glucose Level 81 mg/dL (74-106) Calcium Level 9.2 mg/dL (8.6-10.2) Intake and Output 08/08/16 08/09/16 19:00 07:00 Intake Total 240 ml 240 ml Output Total 700 ml Balance -460 ml 240 ml Intake Oral 240 ml 240 ml Output Urine Total 700 ml # Voids 3 # Bowel Movements 2 Objective General Appearance: WD/WN, no apparent distress, alert EENT: PERRL/EOMI, normal ENT inspection Neck: non-tender, normal alignment, supple Cardiovascular: normal peripheral pulses, normal rate, regular rhythm, no gallop/murmur, no JVD Respiratory/Chest: chest wall non-tender, lungs clear, normal breath sounds, no respiratory distress, no accessory muscle use Abdomen: normal bowel sounds, non tender, soft, no organomegaly, no mass Extremities: other - left hemiparesis 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 (4) Chest pain Assessment & Plan: Ruled out for [place] - see cardiology note. (5) Dizziness (6) Cough (7) HTN (hypertension) Assessment & Plan: Cont zestril (8) Left hemiparesis (9) Cerebral vascular disease (10) Vertigo Assessment & Plan: See neuro note. Status: progressing Assessment/Plan Discharge planning KATHY CAMPUZANO Aug 09, 2016 17:42
[2016-08-09] MEDS: Atorvastatin 20mg tab ORAL SCH (21:21)
[2016-08-09] MEDS: clonazePAM 0.5mg tab ORAL SCH (21:21)
[2016-08-10] VITALS: BP 104/64
[2016-08-10 04:00] VITALS: BP 103/65
[2016-08-10] MEDS: CEFUROXIME 250 MG ORAL SCH ×2 (06:11→18:16)
[2016-08-10 07:33] LABS: BASOPHILS % (AUTO) 0.5 % (0.0-2.0); EOSINOPHILS % (AUTO) 0.4 % (0.0-3.0); LYMPHOCYTES % (AUTO) 33.1 % (20.0-45.0); MEAN CORPUSCULAR HEMOGLOBIN 26.1 PG (27.0-31.0); MEAN CORPUSCULAR HGB CONC 29.3 G/DL (32.0-36.0); MEAN CORPUSCULAR VOLUME 89 FL (80-99); MEAN PLATELET VOLUME 6.9 FL (6.5-10.1); MONOCYTES % (AUTO) 10.6 % (1.0-10.0); NEUTROPHILS % (AUTO) 55.5 % (45.0-75.0); PLATELET COUNT 197 K/UL (150-450); RED BLOOD COUNT 4.12 M/UL (4.20-5.40); RED CELL DISTRIBUTION WIDTH 15.1 % (11.6-14.8); WHITE BLOOD COUNT 4.8 K/UL (4.8-10.8)
[2016-08-10 07:52] LABS: ANION GAP 13 (5-15); CALCIUM 9.2 mg/dL (8.6-10.2); CARBON DIOXIDE 26 mEQ/L (20-30); CHLORIDE 96 mEQ/L (98-107); CREATININE 1.2 mg/dL (0.5-0.9); GLOMERULAR FILTRATION RATE > 60 mL/min (>60); HEMOLYSIS 2; POTASSIUM 4.6 mEQ/L (3.4-4.9); SODIUM 135 mEQ/L (135-145)
[2016-08-10 08:46] VITALS: BP 112/70
[2016-08-10] MEDS: Lisinopril 2.5mg tab ORAL SCH (09:00)
[2016-08-10] MEDS: Albuterol 2mg Tab ORAL SCH ×4 (09:45→21:53)
[2016-08-10] MEDS: Aspirin EC 81mg tab ORAL SCH (09:45)
[2016-08-10] MEDS: Amiodarone 200mg tab ORAL SCH (09:46)
[2016-08-10] MEDS: Heparin 5000 units/ml inj SUBQ SCH ×2 (09:48→20:20)
[2016-08-10] MEDS: HYDROmorphone 1mg/ml Carpuject IVP PRN ×3 (09:52→20:19)
[2016-08-10 12:00] VITALS: BP 148/80
--- NOTE | 2016-08-10 13:47 | Internal Med Progress Note ---
Subjective Date of Service: Aug 10, 2016 Physician Name Kiran Campuzano Attending Physician Ángel Almonte MD Current Medications Medications (Trade) Dose Ordered Sig/Vilma Route PRN Reason Start Time Stop Time Status Last Admin Dose Admin Acetaminophen (Tylenol) 650 mg Q4H PRN ORAL Fever/Headache/Mild Pain 08/09/16 01:03 09/08/16 01:02 08/09/16 18:44 Albuterol Sulfate (Proventil) 2 mg QID ORAL 08/09/16 09:00 09/08/16 08:59 08/10/16 12:59 Albuterol Sulfate (Proventil) 2.5 mg Q4H PRN HHN Shortness of Breath 08/09/16 01:00 08/14/16 00:59 Amiodarone HCl (Cordarone) 200 mg DAILY ORAL 08/09/16 09:00 09/08/16 08:59 08/10/16 09:46 Aspirin (Ecotrin) 81 mg DAILY ORAL 08/09/16 09:00 09/08/16 08:59 08/10/16 09:45 Atorvastatin Calcium (Lipitor) 20 mg BEDTIME ORAL 08/09/16 21:00 09/08/16 20:59 08/09/16 21:21 Carvedilol (Coreg) 3.125 mg EVERY 12 HOURS ORAL 08/09/16 09:00 09/08/16 08:59 08/09/16 08:31 Cefuroxime Axetil (Ceftin) 250 mg Q12H ORAL 08/09/16 06:30 08/16/16 06:29 08/10/16 06:11 Clonazepam (KlonoPIN) 0.5 mg BEDTIME ORAL 08/09/16 21:00 08/16/16 20:59 08/09/16 21:21 Diphenhydramine HCl (Benadryl) 25 mg Q4H PRN IVP Itching 08/09/16 01:06 09/08/16 01:05 Gabapentin (Neurontin) 300 mg THREE TIMES A DAY ORAL 08/09/16 09:00 09/08/16 08:59 08/10/16 12:59 Heparin Sodium (Porcine) (Heparin 5000 units/ml) 5,000 units EVERY 12 HOURS SUBQ 08/09/16 09:00 09/08/16 08:59 08/10/16 09:48 Hydromorphone HCl (Dilaudid) 1 mg Q4H PRN IVP For Pain 08/09/16 01:07 08/16/16 01:06 08/10/16 09:52 Lidocaine HCl (Xylocaine Viscous) 15 ml Q4H PRN ORAL For Throat Pain 08/09/16 01:07 09/08/16 01:06 Lisinopril (Zestril) 5 mg DAILY ORAL 08/09/16 09:00 09/08/16 08:59 08/09/16 08:32 Promethazine HCl/ Codeine (Phenergan with Codeine) 5 ml Q6H PRN ORAL For Cough 08/09/16 01:03 09/08/16 01:02 Allergies: Coded Allergies: No Known Allergies (Unverified , 05/15/15) ROS Limited/Unobtainable: No Constitutional: Reports: no symptoms HEENT: Reports: throat pain Cardiovascular: Reports: chest pain Respiratory: Reports: no symptoms Gastrointestinal/Abdominal: Reports: no symptoms Genitourinary: Reports: no symptoms Neurologic/Psychiatric: Reports: no symptoms Subjective Cover for Int Med-Dr Almonte. C/O sore throat Objective Last Vital Signs Date Time Temp Pulse Resp B/P Pulse Ox O2 Delivery O2 Flow Rate FiO2 08/10/16 10:22 98.2 08/10/16 09:00 112/70 08/10/16 09:00 72 08/10/16 08:46 20 99 Room Air 08/09/16 14:15 94.0 08/06/16 18:53 100 Laboratory Tests Test 08/10/16 05:10 White Blood Count 4.8 K/UL (4.8-10.8) Red Blood Count 4.12 M/UL (4.20-5.40) L Hemoglobin 10.8 G/DL (12.0-16.0) L Hematocrit 36.7 % (37.0-47.0) L Mean Corpuscular Volume 89 FL (80-99) Mean Corpuscular Hemoglobin 26.1 PG (27.0-31.0) L Mean Corpuscular Hemoglobin Concent 29.3 G/DL (32.0-36.0) L Red Cell Distribution Width 15.1 % (11.6-14.8) H Platelet Count 197 K/UL (150-450) Mean Platelet Volume 6.9 FL (6.5-10.1) Neutrophils (%) (Auto) 55.5 % (45.0-75.0) Lymphocytes (%) (Auto) 33.1 % (20.0-45.0) Monocytes (%) (Auto) 10.6 % (1.0-10.0) H Eosinophils (%) (Auto) 0.4 % (0.0-3.0) Basophils (%) (Auto) 0.5 % (0.0-2.0) Sodium Level 135 mEQ/L (135-145) Potassium Level 4.6 mEQ/L (3.4-4.9) Chloride Level 96 mEQ/L (98-107) L Carbon Dioxide Level 26 mEQ/L (20-30) Anion Gap 13 (5-15) Blood Urea Nitrogen 11 mg/dL (7-23) Creatinine 1.2 mg/dL (0.5-0.9) H Estimat Glomerular Filtration Rate > 60 mL/min (>60) Glucose Level 75 mg/dL (74-106) Calcium Level 9.2 mg/dL (8.6-10.2) Intake and Output 08/09/16 08/10/16 19:00 07:00 Intake Total 300 ml Output Total 600 ml Balance -300 ml Intake Oral 300 ml Output Urine Total 600 ml # Voids 4 5 Objective General Appearance: WD/WN, no apparent distress, alert EENT: PERRL/EOMI, normal ENT inspection Neck: non-tender, normal alignment, supple Cardiovascular: normal peripheral pulses, normal rate, regular rhythm, no gallop/murmur, no JVD Respiratory/Chest: chest wall non-tender, lungs clear, normal breath sounds, no respiratory distress, no accessory muscle use Abdomen: normal bowel sounds, non tender, soft, no organomegaly, no mass Extremities: other - left hemiparesis 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 (4) Chest pain Assessment & Plan: Ruled out for [place] - see cardiology note. (5) Dizziness (6) Cough (7) HTN (hypertension) Assessment & Plan: Cont zestril (8) Left hemiparesis (9) Cerebral vascular disease (10) Vertigo Assessment & Plan: See neuro note. Status: progressing Assessment/Plan Discharge planning KIRAN CAMPUZANO Aug 10, 2016 13:47
[2016-08-10 15:40] VITALS: BP 114/68
--- NOTE | 2016-08-10 17:21 | Cardiac Electrophysiology PN ---
Assessment/Plan Assessment/Plan 1. Atypical chest pain, ruled out for myocardial infarction . Nuclear stress test in March 2016 showed nonischemic response. Her echocardiogram also in March 2016 showed ejection fraction 45% to 50%. 2. Paroxysmal atrial fibrillation, in SR. 3. Cardiomyopathy ejection fraction 40% on Coreg 3.125 mg b.i.d., lisinopril 5 mg daily. 4. Hyperlipidemia on Lipitor. 5. Status post [facility] [employer] defibrillator implantation with Nl Fx. 6. Cerebrovascular accident with left hemiparesis. 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 Subjective Subjective No significant change. Still has generalized body ache. Now off tele. Objective Last 24 Hour Vital Signs Date Time Temp Pulse Resp B/P Pulse Ox O2 Delivery O2 Flow Rate FiO2 08/10/16 16:34 98.2 08/10/16 15:41 80 76 68 08/10/16 15:40 98.2 80 17 114/68 100 Room Air 08/10/16 12:00 98.8 79 20 148/80 98 Room Air 08/10/16 12:00 79 80 81 08/10/16 09:00 112/70 08/10/16 09:00 72 112/70 08/10/16 08:46 98.2 72 20 112/70 99 Room Air 08/10/16 08:24 66 16 Room Air 08/10/16 08:00 72 77 74 08/10/16 04:00 97.2 66 19 103/65 95 Room Air 08/10/16 04:00 66 64 72 08/10/16 00:13 66 67 72 08/10/16 00:00 97.5 67 16 104/64 94 Room Air 08/10/16 00:00 97.5 67 16 104/64 94 Room Air 08/09/16 21:00 72 106/60 08/09/16 20:00 98.4 72 16 106/60 100 Room Air 08/09/16 19:07 64 16 Room Air Intake and Output 08/09/16 08/10/16 18:59 06:59 Intake Total 300 ml Output Total 600 ml Balance -300 ml Intake Oral 300 ml Output Urine Total 600 ml # Voids 4 5 Laboratory Tests Test 08/10/16 05:10 White Blood Count 4.8 K/UL (4.8-10.8) Red Blood Count 4.12 M/UL (4.20-5.40) L Hemoglobin 10.8 G/DL (12.0-16.0) L Hematocrit 36.7 % (37.0-47.0) L Mean Corpuscular Volume 89 FL (80-99) Mean Corpuscular Hemoglobin 26.1 PG (27.0-31.0) L Mean Corpuscular Hemoglobin Concent 29.3 G/DL (32.0-36.0) L Red Cell Distribution Width 15.1 % (11.6-14.8) H Platelet Count 197 K/UL (150-450) Mean Platelet Volume 6.9 FL (6.5-10.1) Neutrophils (%) (Auto) 55.5 % (45.0-75.0) Lymphocytes (%) (Auto) 33.1 % (20.0-45.0) Monocytes (%) (Auto) 10.6 % (1.0-10.0) H Eosinophils (%) (Auto) 0.4 % (0.0-3.0) Basophils (%) (Auto) 0.5 % (0.0-2.0) Sodium Level 135 mEQ/L (135-145) Potassium Level 4.6 mEQ/L (3.4-4.9) Chloride Level 96 mEQ/L (98-107) L Carbon Dioxide Level 26 mEQ/L (20-30) Anion Gap 13 (5-15) Blood Urea Nitrogen 11 mg/dL (7-23) Creatinine 1.2 mg/dL (0.5-0.9) H Estimat Glomerular Filtration Rate > 60 mL/min (>60) Glucose Level 75 mg/dL (74-106) Calcium Level 9.2 mg/dL (8.6-10.2) Objective HEAD AND NECK: Shows no JVD. LUNGS: Clear. CARDIOVASCULAR: Shows regular S1 and S2 with no gallop or murmur. Defibrillator in the left subclavian intact. ABDOMEN: Soft and nontender. EXTREMITIES: No pitting edema. DIMITRIS PEDRO Aug 10, 2016 17:21
[2016-08-10 20:00] VITALS: BP 114/76
[2016-08-10] MEDS: Atorvastatin 20mg tab ORAL SCH (20:18)
[2016-08-10] MEDS: clonazePAM 0.5mg tab ORAL SCH (20:19)
[2016-08-11 04:00] VITALS: BP 116/76
[2016-08-11] MEDS: CEFUROXIME 250 MG ORAL SCH (05:46)
[2016-08-11 06:15] LABS: BASOPHILS % (AUTO) 1.6 % (0.0-2.0); EOSINOPHILS % (AUTO) 0.5 % (0.0-3.0); LYMPHOCYTES % (AUTO) 30.7 % (20.0-45.0); MEAN CORPUSCULAR HGB CONC 30.2 G/DL (32.0-36.0); MEAN CORPUSCULAR VOLUME 89 FL (80-99); MEAN PLATELET VOLUME 8.6 FL (6.5-10.1); MONOCYTES % (AUTO) 11.7 % (1.0-10.0); NEUTROPHILS % (AUTO) 55.6 % (45.0-75.0); PLATELET COUNT 144 K/UL (150-450); RED BLOOD COUNT 3.88 M/UL (4.20-5.40); RED CELL DISTRIBUTION WIDTH 15.2 % (11.6-14.8); WHITE BLOOD COUNT 4.6 K/UL (4.8-10.8)
[2016-08-11 06:45] LABS: CREATININE 1.3 mg/dL (0.5-0.9); GLOMERULAR FILTRATION RATE 56.2 mL/min (>60); POTASSIUM 4.6 mEQ/L (3.4-4.9)
[2016-08-11 08:22] VITALS: BP 115/65
[2016-08-11] MEDS: Lisinopril 2.5mg tab ORAL SCH (09:00)
[2016-08-11] MEDS: Heparin 5000 units/ml inj SUBQ SCH (09:00)
[2016-08-11] MEDS: Aspirin EC 81mg tab ORAL SCH (09:06)
[2016-08-11] MEDS: Amiodarone 200mg tab ORAL SCH (09:06)
[2016-08-11] MEDS: HYDROmorphone 1mg/ml Carpuject IVP PRN ×3 (09:07→14:36)
[2016-08-11] MEDS: Albuterol 2mg Tab ORAL SCH ×3 (09:07→18:12)
[2016-08-11 11:25] VITALS: BP 112/70
--- NOTE | 2016-08-11 13:34 | Diagnostic Imaging Report ---
APPROVED REPORT CPT Code: 21742 Vascular Symptoms Dizziness and Vertigo CAROTID (BILATERAL) - Imaging reveals no significant plaque within the right and left extracranial carotid arteries. The Doppler spectral flow analysis is within normal limits throughout the extracranial carotid arteries bilaterally. VERTEBRAL- The vertebral arteries are within normal limits.
--- NOTE | 2016-08-11 15:14 | Discharge Summary ---
Discharge Summary Hospital Course Date of Admission Aug 05, 2016 at 17:58 Date of Discharge Admitting Diagnosis cp acs, evaluated cva, dizziness HPI Ruthy Olmos is a 36 year old female who was admitted on Aug 05, 2016 at 17: 58 for Cp, Acs, Evaluated Cva, Dizziness Hospital Course Dictated for Chante Almonte no. [id number]. Discharge Discharge Disposition Patient was discharged to Home (01) Discharge Diagnoses: KATHY CAMPUZANO Aug 11, 2016 15:14
[2016-08-11] MEDS ORDERED: Norco 5mg/325mg tab ORAL PRN (15:15)
[2016-08-11 16:00] VITALS: BP 116/66
--- NOTE | 2016-08-11 17:36 | Cardiac Electrophysiology PN ---
Assessment/Plan Assessment/Plan 1.Chest pain, ruled out for myocardial infarction . Nuclear stress test in March 2016 showed non ischemia. Echocardiogram in March 2016 showed ejection fraction 45% to 50%. 2. Paroxysmal atrial fibrillation, in SR. 3. Cardiomyopathy ejection fraction 40% on Coreg 3.125 mg b.i.d., lisinopril 5 mg daily. 4. Hyperlipidemia on Lipitor. 5. Status post [facility] [employer] defibrillator implantation with Nl Fx. 6. Cerebrovascular accident with left hemiparesis. 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 DC planning today. Subjective Subjective Seems comfortable but complains of generalized body ache. Objective Last 24 Hour Vital Signs Date Time Temp Pulse Resp B/P Pulse Ox O2 Delivery O2 Flow Rate FiO2 08/11/16 16:57 99.7 08/11/16 16:00 83 83 79 08/11/16 16:00 99.7 83 18 116/66 100 Room Air 08/11/16 11:26 66 75 77 08/11/16 11:25 98.6 66 19 112/70 100 Room Air 08/11/16 09:37 99.0 08/11/16 08:24 75 81 87 08/11/16 08:22 99.0 75 19 115/65 100 Room Air 100 08/11/16 08:16 75 18 Room Air 08/11/16 04:00 97.7 69 18 116/76 98 Room Air 08/11/16 04:00 69 08/11/16 00:00 66 75 78 08/10/16 20:19 76 107/53 08/10/16 20:00 97.7 79 18 114/76 99 Room Air 08/10/16 20:00 79 74 67 08/10/16 19:05 72 16 Room Air Intake and Output 08/10/16 08/11/16 18:59 06:59 Intake Total 720 ml 180 ml Balance 720 ml 180 ml Intake Oral 720 ml 180 ml # Voids 5 6 Laboratory Tests Test 08/11/16 05:15 White Blood Count 4.6 K/UL (4.8-10.8) L Red Blood Count 3.88 M/UL (4.20-5.40) L Hemoglobin 10.5 G/DL (12.0-16.0) L Hematocrit 34.7 % (37.0-47.0) L Mean Corpuscular Volume 89 FL (80-99) Mean Corpuscular Hemoglobin 27.0 PG (27.0-31.0) Mean Corpuscular Hemoglobin Concent 30.2 G/DL (32.0-36.0) L Red Cell Distribution Width 15.2 % (11.6-14.8) H Platelet Count 144 K/UL (150-450) L Mean Platelet Volume 8.6 FL (6.5-10.1) Neutrophils (%) (Auto) 55.6 % (45.0-75.0) Lymphocytes (%) (Auto) 30.7 % (20.0-45.0) Monocytes (%) (Auto) 11.7 % (1.0-10.0) H Eosinophils (%) (Auto) 0.5 % (0.0-3.0) Basophils (%) (Auto) 1.6 % (0.0-2.0) Sodium Level 136 mEQ/L (135-145) Potassium Level 4.6 mEQ/L (3.4-4.9) Chloride Level 96 mEQ/L (98-107) L Carbon Dioxide Level 27 mEQ/L (20-30) Anion Gap 13 (5-15) Blood Urea Nitrogen 12 mg/dL (7-23) Creatinine 1.3 mg/dL (0.5-0.9) H Estimat Glomerular Filtration Rate 56.2 mL/min (>60) Glucose Level 82 mg/dL (74-106) Calcium Level 9.0 mg/dL (8.6-10.2) Objective HEAD AND NECK: Shows no JVD. LUNGS: Clear. CARDIOVASCULAR: Shows regular S1 and S2 with no gallop or murmur. Defibrillator in the left subclavian intact. ABDOMEN: Soft and nontender. EXTREMITIES: No pitting edema. DIMITRIS PEDRO Aug 11, 2016 17:36
[2016-08-11] MEDS ORDERED: CEFUROXIME 250 MG ORAL SCH (21:00)
--- NOTE | 2016-08-11 23:18 | Discharge Summary ---
DATE OF ADMISSION: 08/05/2016 DATE OF DISCHARGE: 08/11/2016 ADMITTING DIAGNOSES: 1. Chest pain. 2. Vertigo. 3. Pharyngitis. 4. Cough. 5. Hypertension. 6. Hypercholesterolemia. 7. Asthma. 8. Cerebrovascular disease. 9. Left hemiparesis. 10. 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 DISCHARGE DIAGNOSES: 1. Chest pain. 2. Vertigo 3. Pharyngitis. 4. Cough. 5. Hypertension. 6. Hypercholesterolemia. 7. Asthma. 8. Cerebrovascular disease. 9. Left hemiparesis. 10. 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 HOSPITAL COURSE BY PROBLEM LIST: 1. Chest pain. A Cardiology consultation was obtained with Dr. Julian Malagon. The patient was ruled out for acute coronary syndrome via cardiac enzymes. Chest pain is thought to be pleuritic secondary to bronchitis. 2. Vertigo. This is probably secondary to dehydration. The patient's vertigo has resolved during the hospitalization. 3. Pharyngitis. The patient was placed empirically on Ceftin 250 mg one tablet p.o. daily. The patient's pharyngitis has resolved. The patient is to follow up with her primary care physician, Dr. Sanabria in one week. 4. Cough. This is probably secondary to bronchitis. Chest x-ray was within normal limits. The patient was started empirically on Ceftin 250 mg one tablet p.o. twice daily. The patient is to continue this for another four days as an outpatient. 5. Hypertension. The patient remained on Coreg 3.125 mg one tablet p.o. daily. The patient also remained on Zestril 5 mg one tablet p.o. daily. Blood pressure was well controlled during hospitalization. 6. Hypercholesterolemia. The patient remain on Lipitor 20 mg one tablet p.o. daily. Cholesterol was controlled during hospitalization. 7. Asthma. The patient remained on Proventil 2.5 mg nebulized q.4 hours p.r.n. Asthma was well controlled during hospitalization. 8. Cerebrovascular disease/left hemiparesis. The patient had physical therapy during the hospitalization. The patient is to continue physical therapy with home health as an outpatient. DISCHARGE MEDICATIONS: Please refer to discharge medication list. DISCHARGE INSTRUCTIONS: 1. The patient is discharged to home today, 08/11/2016. 2. The patient is to receive home physical therapy upon discharge. 3. The patient is to follow up with her primary care physician, Dr. Sanabria in one week. Kiran Avlia M.D. DR: Deneen JOB#: [id number] CC:
--- NOTE | 2016-08-12 08:28 | Cardiology Report ---
APPROVED REPORT EXAM: Two-dimensional and M-mode echocardiogram with Doppler and color Doppler. INDICATION Syncope M-Mode DIMENSIONS IVSd1.1 (0.7-1.1cm)Left Atrium (MM)3.4 (1.6-4.0cm) LVDd5.0 (3.5-5.6cm)Aortic Root2.4 (2.0-3.7cm) PWd1.0 (0.7-1.1cm)Aortic Cusp Exc.1.6 (1.5-2.0cm) LVDs2.9 (2.5-4.0cm) PWs.8 cm Technically difficult study due to poor acoustic windows. Study quality precludes accurate assessment of regional wall motion. Left ventricle is moderately enlarged. There is inferoseptal wall, septal wall and apical cap hypokinesia, could partly be due to pacemaker RV pacing. Overall LVEF is estimated at 40%. Ischemic cardiomyopathy cannot be excluded. An echodense round mass in the LV apex is seen, thrombus cannot be excluded. No evidence of pericardial effusion. All other cardiac chamber sizes are within normal limits. Mild focal aortic valve sclerosis with adequate cusp excursion Mildly thickened mitral valve leaflets with normal excursion. Mild mitral annulus and aortic root calcification. Pulmonic valve visualized. Normal tricuspid valve structure. Probable pacemaker wire present in the right side chambers. IVC at normal size with physiological collapse. A color flow and spectral Doppler study was performed and revealed: Trace aortic regurgitation. Trace mitral regurgitation. Mitral inflow indicate normal left ventricular diastolic function. Trace tricuspid regurgitation. Tricuspid systolic velocities suggests peak right ventricular systolic pressure of 15 mmHg. No pulmonic regurgitation present.
== END 2016-08-11 20:30 | disposition home health service (06) | DRG 202 ==
LOC: ENRESERV → ENRESERVTM → ENRESERVDT → EDBD 16:54 → EMR 17:30 → 2E 17:58 → EDBEDREQ 18:48 → 4E 08-09 00:17
DX: J45.909 Unspecified asthma, uncomplicated (principal); I42.9 Cardiomyopathy, unspecified; R55 Syncope and collapse; I69.954 Hemiplegia and hemiparesis following unspecified cerebrovascular disease affecting left non-dominant side; I10 Essential (primary) hypertension; I48.0 Paroxysmal atrial fibrillation; E86.0 Dehydration; I48.91 Unspecified atrial fibrillation; E78.5 Hyperlipidemia, unspecified; R42 Dizziness and giddiness; E78.00 Pure hypercholesterolemia, unspecified; I25.10 Atherosclerotic heart disease of native coronary artery without angina pectoris; R07.81 Pleurodynia; J02.9 Acute pharyngitis, unspecified; Z95.810 Presence of automatic (implantable) cardiac defibrillator; Z79.82 Long term (current) use of aspirin
CPT/HCPCS: 36415; 70450; 71010; 71020; 80048; 80053; 82550; 82553; 83880; 84484; 85007; 85025; 93005; 93306; 93880; 94664

== ENCOUNTER 2016-09-03 10:56 | Emergency (ER) | payer MEDICARE, OTHER ==
[~2016-09-03] VITALS: Ht 149.9 cm; Wt 70.3 kg
[2016-09-03 11:00] VITALS: BP 154/61
--- NOTE | 2016-09-03 11:06 | Emergency Room Report ---
History of Present Illness General Chief Complaint: Multiple Trauma/Fall Source: Patient, EMS Present Illness HPI 36 YO F with headache and neck pain s/p slip and fall backward on 4 stairs. Denies LOC. On ASA, blood thinners. Denies nausea/vomiting, blurry/change in vision. Has known left sided hemiparesis from "previous heart attack and CVA." Allergies: Coded Allergies: No Known Allergies (Unverified , 05/15/15) Patient History Past Medical History: CAD, CVA/TIA Past Surgical History: pacemaker Pertinent Family History: none Social History: Reports: smoking Now: No Immunizations: UTD Reviewed Nursing Documentation: PMH: Agreed, PSxH: Agreed Nursing Documentation-PMH Hx Cardiac Problems: Yes - MA Hx Hypertension: Yes Hx Pacemaker: Yes Hx Asthma: Yes Hx Cancer: No Hx Gastrointestinal Problems: No Hx Neurological Problems: Yes - thyroid, Arthrtis Hx Cerebrovascular Accident: Yes - Lt side weakness Hx Weakness: Yes - L side Review of Systems All Other Systems: negative except mentioned in HPI Physical Exam Vital Signs Date Time Temp Pulse Resp B/P Pulse Ox O2 Delivery O2 Flow Rate FiO2 09/03/16 10:45 97.9 73 154/61 100 Room Air Sp02 EP Interpretation: reviewed, normal General Appearance: normal inspection, well appearing, no apparent distress, alert, GCS 15, non-toxic, other - C-collar in place Head: normocephalic, atraumatic Eyes: bilateral eye EOMI, bilateral eye PERRL ENT: normal ENT inspection, hearing grossly normal, normal voice Neck: normal inspection, full range of motion, supple, no bony tend, no carotid bruits, supple/symm/no masses, other - Mild c-spine midline ttp on exam. 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 Afebrile. No obvious trauma, deformity C-collar left on CT head and CT Cspine negative for acute trauma DC home Last Vital Signs Date Time Temp Pulse Resp B/P Pulse Ox O2 Delivery O2 Flow Rate FiO2 09/03/16 11:00 97.9 154/61 100 Room Air 09/03/16 10:45 73 Status: improved Disposition: HOME, SELF-CARE CHANDRIKA WARD M.D. Sep 03, 2016 11:06
[2016-09-03 12:45] VITALS: BP 142/62
--- NOTE | 2016-09-03 13:25 | Diagnostic Imaging Report ---
Indications: Head neck pain, status post fall Technique: Spiral acquisitions obtained through the brain. Angled axial and coronal 5 x 5 mm slices were reconstructed. Total dose length product 1499 mGycm. CTDI vol(s) 70 mGy Comparison: 06/21/2016 Findings: Again demonstrated is a large area of encephalomalacia involving the right frontal, parietal, and temporal lobes, consistent with old middle cerebral artery distribution infarct. There is resultant ex vacuo dilatation of much of the right lateral ventricle. No evidence of acute hemorrhage or edema. There is some midline shift to the right, but this appears to be ex vacuo due to the large area of encephalomalacia. This is stable. Ho-white differentiation is normal. There is an old lacunar infarct within the right cerebellar hemisphere again demonstrated. The calvarium is intact. 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 Possible old right cerebellar hemispheric lacunar infarct Other age-related volume loss, as described Negative for acute intracranial bleed or mass effect. The CT scanner at [facility] is accredited by the [employer] and the scans are performed using protocols designed to limit radiation exposure to as low as reasonably achievable to attain images of sufficient resolution adequate for diagnostic evaluation.
--- NOTE | 2016-09-03 13:31 | Diagnostic Imaging Report ---
Indication: Head and neck pain, status post fall Technique: Spiral acquisitions obtained through the cervical spine. No IV contrast utilized. Multiplanar reconstructions were generated. Total dose length product 220 mGycm. CTDIvol(s) 12 mGy Comparison: None Findings: A small osseous fragment inferior to the anterior arch of C1. This appears to be corticated with smooth margins, so doubt this represents an acute fracture fragment. Otherwise, no acute fractures. No dislocations. Vertebral body heights are preserved. There is degenerative disc narrowing at C6-7. There are osteophytes at multiple levels. There is mild dextroscoliotic deformity which is probably due to muscle spasm. Otherwise normal bony alignment. At C4-5, there is mild to moderate neural foraminal stenosis on the left. No significant disc bulge or protrusion or spinal stenosis. At C5-6, there is moderate left, mild right neural foraminal stenosis. No significant disc bulge or protrusion or spinal stenosis. At C6-7, there is severe left neural foraminal stenosis. No significant disc bulge or protrusion or spinal stenosis. At the remaining levels, no significant disc bulge or protrusion, spinal stenosis, or neural foraminal narrowing. The included extra spinal soft tissues are unremarkable. Impression: Negative for acute bony trauma Degenerative changes, as described The CT scanner at [facility] is accredited by the [employer] and the scans are performed using protocols designed to limit radiation exposure to as low as reasonably achievable to attain images of sufficient resolution adequate for diagnostic evaluation.
[2016-09-03 14:51] VITALS: BP 147/61
[2016-09-03 15:20] VITALS: BP 147/61
== END 2016-09-03 15:22 | disposition home or self-care (01) ==
LOC: EDBD 10:56 → EMR 11:28
DX: R51 Headache (principal); M54.2 Cervicalgia; W10.9XXA Fall (on) (from) unspecified stairs and steps, initial encounter; Y92.9 Unspecified place or not applicable; I25.10 Atherosclerotic heart disease of native coronary artery without angina pectoris; Z86.73 Personal history of transient ischemic attack (TIA), and cerebral infarction without residual deficits; F17.200 Nicotine dependence, unspecified, uncomplicated; I10 Essential (primary) hypertension; Z95.0 Presence of cardiac pacemaker; J45.909 Unspecified asthma, uncomplicated; I69.354 Hemiplegia and hemiparesis following cerebral infarction affecting left non-dominant side; I25.2 Old myocardial infarction; M48.02 Spinal stenosis, cervical region
CPT/HCPCS: 70450; 72125; 99284

== ENCOUNTER 2017-02-05 17:32 | Inpatient (IN) | payer MEDICARE, OTHER ==
[~2017-02-05] VITALS: Ht 157.5 cm; Wt 68.0 kg
[2017-02-05] MEDS ORDERED: DuoNeb 0.5-3(2.5)mg/3ml neb HHN ONE (17:45)
[2017-02-05 18:01] VITALS: BP 151/86
[2017-02-05 18:15] LABS: BASOPHILS % (AUTO) 1.4 % (0.0-2.0); EOSINOPHILS % (AUTO) 0.4 % (0.0-3.0); LYMPHOCYTES % (AUTO) 26.4 % (20.0-45.0); MEAN CORPUSCULAR HEMOGLOBIN 29.9 PG (27.0-31.0); MEAN CORPUSCULAR HGB CONC 31.8 G/DL (32.0-36.0); MEAN CORPUSCULAR VOLUME 94 FL (80-99); MEAN PLATELET VOLUME 9.8 FL (6.5-10.1); NEUTROPHILS % (AUTO) 60.8 % (45.0-75.0); PLATELET COUNT 136 K/UL (150-450); RED CELL DISTRIBUTION WIDTH 14.2 % (11.6-14.8); WHITE BLOOD COUNT 4.2 K/UL (4.8-10.8)
[2017-02-05 18:30] LABS: TROPONIN I < 0.30 ng/mL (<=0.30)
[2017-02-05] MEDS ORDERED: Aspirin Baby 81mg ORAL ONE (18:30)
[2017-02-05] MEDS ORDERED: Norco 5mg/325mg tab ORAL ONE (18:30)
[2017-02-05 18:34] LABS: ALBUMIN/GLOBULIN RATIO 1.1 (1.0-2.7); CALCIUM 9.4 mg/dL (8.6-10.2); CREATININE 1.5 mg/dL (0.5-0.9); GLOMERULAR FILTRATION RATE 47.6 mL/min (>60); TOTAL PROTEIN 7.4 g/dL (6.6-8.7)
[2017-02-05 18:45] LABS: CKMB 2.4 ng/mL (< 3.8)
[2017-02-05 18:56] LABS: BILIRUBIN,DIRECT 0.4 mg/dL (0.1-0.3)
[2017-02-05 19:00] VITALS: BP 123/85
[2017-02-05] MEDS ORDERED: Albuterol 90mcg Inhaler 8gm INH PRN (21:15)
--- NOTE | 2017-02-05 21:36 | Emergency Room Report ---
History of Present Illness General Chief Complaint: Chest Pain Source: Patient Present Illness HPI Patient is a 36-year-old female presented after increased chest discomfort. Patient reported having sharp pain worse with respirations. She reported having increased cough. She states that this had worsened over the past few days. Pain was intermittent in nature. She reports having prior history of myocardial infarction and as well as CVA. Patient had previous AICD placement. She denied any fever. She reported having increased greenish mucus. The pain was intermittent Allergies: Coded Allergies: No Known Allergies (Unverified , 05/15/15) Patient History Past Medical History: see triage record Reviewed Nursing Documentation: PMH: Agreed, PSxH: Agreed Nursing Documentation-PMH Hx Cardiac Problems: Yes - [place] Hx Hypertension: Yes Hx Pacemaker: Yes Hx Asthma: Yes Hx Cancer: No Hx Gastrointestinal Problems: No Hx Neurological Problems: Yes - thyroid, Arthrtis Hx Cerebrovascular Accident: Yes - Lt side weakness Hx Weakness: Yes - L side Review of Systems All Other Systems: negative except mentioned in HPI Physical Exam Vital Signs Date Time Temp Pulse Resp B/P Pulse Ox O2 Delivery O2 Flow Rate FiO2 02/05/17 17:30 98.4 76 15 172/92 100 Room Air Sp02 EP Interpretation: reviewed, normal General Appearance: normal inspection, well appearing, no apparent distress, alert, GCS 15, non-toxic Head: atraumatic ENT: normal ENT inspection, hearing grossly normal, normal voice Neck: normal inspection, full range of motion, supple, no bony tend Respiratory: normal inspection, lungs clear, normal breath sounds, no respiratory distress, no retraction, no wheezing Cardiovascular #1: regular rate, rhythm, no edema Gastrointestinal: normal inspection, normal bowel sounds, non tender, soft, no guarding, no hernia Genitourinary: no CVA tenderness Musculoskeletal: normal inspection, back normal, normal range of motion Neurologic: normal inspection, alert, responsive, speech normal, motor weakness - left upper extremity, left lower extremity Psychiatric: normal inspection, judgement/insight normal, mood/affect normal Skin: normal inspection, normal color, no rash Medical Decision Making Diagnostic Impression: Primary Impression: Hemiparesis affecting left side as late effect of cerebrovascular accident Additional Impression: CHF (congestive heart failure) ER Course Patient presented for chest pain. Differential diagnosis included but was not limited to acute coronary syndrome, pulmonary embolism, pneumonia, aortic dissection, shingles, pneumothorax, aortic dissection, esophageal rupture, pericarditis. Because of complexity of patient's case laboratory testing and imaging studies were ordered.EKG interpreted by me showed sinus rhythm with a rate of [address] changes. there was noted to be some prolongation of QT interval. There were nonspecific T wave changes noted. Patient was given aspirin as well as breathing treatment. The patient was noted to have a concerning cardiac history. Dr. Ángel Almonte was contacted for inpatient management EKG Diagnostic Results Rate: normal Rhythm: NSR ST Segments: no acute changes Chest X-Ray Diagnostic Results Chest X-Ray Diagnostic Results : Chest X-Ray Ordered: Yes # of Views/Limited/Complete: 1 View EP Interpretation: Yes Interpretation: no consolidation, no effusion, no pneumothorax, no acute cardiopulmonary disease Indication: Chest Pain Impression: Other - aicd Interpreting ER Provider: Electronically signed by Dr. Ruddy Curiel M.D. Last Vital Signs Date Time Temp Pulse Resp B/P Pulse Ox O2 Delivery O2 Flow Rate FiO2 02/05/17 19:00 68 15 123/85 100 Room Air 02/05/17 18:01 98.9 Status: unchanged Disposition: ADMITTED INPATIENT Condition: Serious Referrals: NON PHYSICIAN (PCP) Ruddy Curiel Feb 05, 2017 21:36
[2017-02-05 22:00] VITALS: BP 101/71
[2017-02-05] MEDS: clonazePAM 0.5mg tab ORAL SCH (22:47)
[2017-02-05] MEDS: Heparin 5000 units/ml inj SUBQ SCH (22:47)
[2017-02-06 00:08] VITALS: BP 104/71
[2017-02-06 04:00] VITALS: BP 123/76
[2017-02-06] MEDS: Heparin 5000 units/ml inj SUBQ SCH ×3 (05:37→22:00)
[2017-02-06 05:47] LABS: MEAN CORPUSCULAR HEMOGLOBIN 28.5 PG (27.0-31.0); MEAN CORPUSCULAR HGB CONC 30.9 G/DL (32.0-36.0); MEAN CORPUSCULAR VOLUME 92 FL (80-99); MEAN PLATELET VOLUME 12.2 FL (6.5-10.1); PLATELET COUNT 95 K/UL (150-450); RED BLOOD COUNT 4.06 M/UL (4.20-5.40); RED CELL DISTRIBUTION WIDTH 14.4 % (11.6-14.8); WHITE BLOOD COUNT 2.9 K/UL (4.8-10.8)
[2017-02-06 06:28] LABS: TROPONIN I < 0.30 ng/mL (<=0.30)
[2017-02-06 06:43] LABS: CALCIUM 8.7 mg/dL (8.6-10.2); CHOLESTEROL/HDL RATIO 4.1 (3.3-4.4); CREATININE 1.4 mg/dL (0.5-0.9); GLOMERULAR FILTRATION RATE 51.5 mL/min (>60); POTASSIUM 3.8 mEQ/L (3.4-4.9)
[2017-02-06 07:49] VITALS: BP 113/83
--- NOTE | 2017-02-06 08:12 | Consultation ---
History of Present Illness General Date patient seen: Feb 06, 2017 Time patient seen: 07:30 Chief Complaint: Chest Pain Referring physician: dr Almonte Reason for Consultation: inpatient management, pulmonary consult Present Illness HPI 36-year-old female with PMH of HTN, SD, AICD, PAF, questionable asthma, arthritis, hx of CVA with left sode weakness presented after increased chest discomfort. Patient reported having sharp pain, worse with respiration, intermittent She reported having increased cough. She reported having increased greenish mucus. No hemoptysis She stated that symptoms worsened over the past few days. She denied any fever.chills CXR was negative for any acute cardiopulmonary pathology troponin negative ECG with SR no acute ischemic changes pro BNP -237 Bun -14 and creat -1.5 AST-503 and ALT- 521 patient was admitted for further management Allergies: Coded Allergies: No Known Allergies (Unverified , 05/15/15) Medication History Scheduled Albuterol Sulfate* (Albuterol Sulfate*), 2 MG PO QID, (Reported) Amiodarone Hcl* (Cordarone*), 200 MG ORAL DAILY Aspirin Ec* (Aspirin Ec*), 81 MG ORAL DAILY, (Reported) Atorvastatin Calcium* (Atorvastatin Calcium*), 20 MG ORAL BEDTIME, (Reported) Carvedilol* (Carvedilol*), 3.125 MG ORAL EVERY 12 HOURS, (Reported) Clonazepam* (Klonopin*), 0.5 MG ORAL BEDTIME, (Reported) Gabapentin* (Gabapentin*), 300 MG ORAL THREE TIMES A DAY, (Reported) Lisinopril (Lisinopril*), 5 MG ORAL DAILY, (Reported) Patient History Healthcare decision maker Resuscitation status Advanced Directive on File Past Medical/Surgical History Past Medical/Surgical History: (1) HTN (hypertension) (2) Head injury (3) Cardiomyopathy (4) CAD (coronary artery disease) (5) Foot drop, left (6) Syncope (7) Asthma (8) Cerebral vascular disease (9) Left hemiparesis (10) Defibrillator discharge Review of Systems Constitutional: Reports: weakness Eye: Reports: no symptoms ENT: Reports: no symptoms Respiratory: Reports: see HPI Cardiovascular: Reports: see HPI Gastrointestinal: Reports: no symptoms Genitourinary: Reports: no symptoms Musculoskeletal: Reports: no symptoms Skin: Reports: no symptoms Psychiatric: Reports: no symptoms Neurological: Reports: other - hx of CVA with Lt hemiparesis Endocrine: Reports: no symptoms Hematologic/Lymphatic: Reports: no symptoms Physical Exam General Appearance: WD/WN, no apparent distress, alert Lines, tubes and drains: peripheral HEENT: normocephalic, atraumatic, anicteric, mucous membranes moist Neck: non-tender, supple, other - left chest AICD Respiratory/Chest: lungs clear - with moderate air entry , no respiratory distress, no accessory muscle use Cardiovascular/Chest: normal rate, regular rhythm, no JVD Abdomen: normal bowel sounds, non tender, soft Skin Exam: warm/dry Neurologic: alert, oriented x 3, responsive, other - L hemiparesis Musculoskeletal: normal muscle bulk Last 24 Hour Vital Signs Date Time Temp Pulse Resp B/P Pulse Ox O2 Delivery O2 Flow Rate FiO2 02/06/17 07:49 97.5 73 18 113/83 97 Room Air 02/06/17 04:00 97.7 68 18 123/76 99 Room Air 02/06/17 04:00 58 02/06/17 00:08 97.7 70 18 104/71 99 Room Air 02/06/17 00:00 58 02/05/17 22:00 97.7 68 18 101/71 99 Room Air 02/05/17 21:22 58 16 111/67 100 Room Air 02/05/17 19:00 68 15 123/85 100 Room Air 02/05/17 18:03 63 18 100 Room Air 02/05/17 18:01 98.9 63 18 151/86 100 Room Air 02/05/17 18:01 67 18 Room Air 02/05/17 17:52 67 18 100 Room Air 02/05/17 17:49 67 18 Room Air 02/05/17 17:30 98.4 76 15 172/92 100 Room Air Intake and Output 02/05/17 02/06/17 19:00 07:00 Intake Total 0 ml Balance 0 ml Intake Oral 0 ml # Voids 3 Laboratory Tests Test 02/05/17 17:57 02/06/17 05:10 White Blood Count 4.2 K/UL (4.8-10.8) L 2.9 K/UL (4.8-10.8) L Red Blood Count 4.20 M/UL (4.20-5.40) 4.06 M/UL (4.20-5.40) L Hemoglobin 12.6 G/DL (12.0-16.0) 11.6 G/DL (12.0-16.0) L Hematocrit 39.6 % (37.0-47.0) 37.5 % (37.0-47.0) Mean Corpuscular Volume 94 FL (80-99) 92 FL (80-99) Mean Corpuscular Hemoglobin 29.9 PG (27.0-31.0) 28.5 PG (27.0-31.0) Mean Corpuscular Hemoglobin Concent 31.8 G/DL (32.0-36.0) L 30.9 G/DL (32.0-36.0) L Red Cell Distribution Width 14.2 % (11.6-14.8) 14.4 % (11.6-14.8) Platelet Count 136 K/UL (150-450) L 95 K/UL (150-450) L Mean Platelet Volume 9.8 FL (6.5-10.1) 12.2 FL (6.5-10.1) H Neutrophils (%) (Auto) 60.8 % (45.0-75.0) % (45.0-75.0) Lymphocytes (%) (Auto) 26.4 % (20.0-45.0) % (20.0-45.0) Monocytes (%) (Auto) 11.0 % (1.0-10.0) H % (1.0-10.0) Eosinophils (%) (Auto) 0.4 % (0.0-3.0) % (0.0-3.0) Basophils (%) (Auto) 1.4 % (0.0-2.0) % (0.0-2.0) D-Dimer 318 ng/mL (<500) Sodium Level 141 mEQ/L (135-145) 141 mEQ/L (135-145) Potassium Level 4.0 mEQ/L (3.4-4.9) 3.8 mEQ/L (3.4-4.9) Chloride Level 107 mEQ/L (98-107) 107 mEQ/L (98-107) Carbon Dioxide Level 22 mEQ/L (20-30) 20 mEQ/L (20-30) Anion Gap 12 (5-15) 14 (5-15) Blood Urea Nitrogen 14 mg/dL (7-23) 13 mg/dL (7-23) Creatinine 1.5 mg/dL (0.5-0.9) H 1.4 mg/dL (0.5-0.9) H Estimat Glomerular Filtration Rate 47.6 mL/min (>60) 51.5 mL/min (>60) Glucose Level 94 mg/dL (74-106) 75 mg/dL (74-106) Calcium Level 9.4 mg/dL (8.6-10.2) 8.7 mg/dL (8.6-10.2) Total Bilirubin 1.1 mg/dL (0.0-1.2) Direct Bilirubin 0.4 mg/dL (0.1-0.3) H Aspartate Amino Transf (AST/SGOT) 503 U/L (5-40) H Alanine Aminotransferase (ALT/SGPT) 521 U/L (3-33) H Alkaline Phosphatase 66 U/L (35-104) Total Creatine Kinase 137 U/L (26-140) Creatine Kinase MB 2.4 ng/mL (< 3.8) Creatine Kinase MB Relative Index 1.7 Troponin I < 0.30 ng/mL (<=0.30) < 0.30 ng/mL (<=0.30) Pro-B-Type Natriuretic Peptide 237 pg/mL (0-125) H Total Protein 7.4 g/dL (6.6-8.7) Albumin 3.9 g/dL (3.5-5.2) Globulin 3.5 g/dL Albumin/Globulin Ratio 1.1 (1.0-2.7) Neutrophils % (Manual) Pending Lymphocytes % (Manual) Pending Platelet Estimate Pending Platelet Morphology Pending Triglycerides Level 71 mg/dL (< 150) Cholesterol Level 234 mg/dL (< 200) H LDL Cholesterol 163 mg/dL (60-99) H HDL Cholesterol 57 mg/dL (> 60) Cholesterol/HDL Ratio 4.1 (3.3-4.4) Height (Feet): 5 Height (Inches): 2.00 Weight (Pounds): 150 Medications Current Medications Medications (Trade) Dose Ordered Sig/Vilma Route PRN Reason Start Time Stop Time Status Last Admin Dose Admin Acetaminophen/ Hydrocodone Bitart ([place] 5/325) 1 tab Q6H PRN ORAL For Pain 02/05/17 20:45 02/12/17 20:44 Albuterol Sulfate (Proventil MDI) 2 puff Q4H PRN INH Shortness of Breath 02/05/17 21:15 03/07/17 21:14 Amiodarone HCl (Cordarone) 200 mg DAILY ORAL 02/06/17 09:00 03/08/17 08:59 Aspirin (Ecotrin) 81 mg DAILY ORAL 02/06/17 09:00 03/08/17 08:59 Atorvastatin Calcium (Lipitor) 20 mg BEDTIME ORAL 02/06/17 23:00 03/08/17 22:59 Carvedilol (Coreg) 3.125 mg EVERY 12 HOURS ORAL 02/06/17 09:00 03/08/17 08:59 Clonazepam (KlonoPIN) 0.5 mg QHS ORAL 02/05/17 23:00 02/12/17 22:59 02/05/17 22:47 Gabapentin (Neurontin) 300 mg THREE TIMES A DAY ORAL 02/06/17 09:00 03/08/17 08:59 Heparin Sodium (Porcine) (Heparin 5000 units/ml) 5,000 units EVERY 8 HOURS SUBQ 02/05/17 22:00 03/07/17 21:59 02/06/17 05:37 Lisinopril (Zestril) 5 mg DAILY ORAL 02/06/17 09:00 03/08/17 08:59 Nitroglycerin (Ntg) 0.4 mg Q5M PRN SL Prn Chest Pain 02/05/17 20:45 03/07/17 20:44 Assessment/Plan Assessment/Plan ASSESSMENT chest pain r/o ACS possible costochondritis recent URI possible bronchitis CAD with hx of SD ( 2011) HTN hx of asthma cardiomyopathy AICD severe transaminitis elev creat PAF PLAN OF CARE tele serial troponin ECG ECHO cardio eval per PMD continue ASA and statin check lipid panel BP management with BB and JUVENTINO, optimize as needed medical management of SHF with BB, JUVENTINO O2 HHN prn antitussive prn not appeared to be in asthma exacerbation, chest pain reproducible on palpation, likely costochondritis but due to risk factors will check serial troponin on Amiodarone, check TSH in SR, no evidence of A fib , not cleared why not on a/coagulation abdominal US and hepatitis panel trend LFT GI eval as per PMD discretion monitor creat ? chronic DVT prophylaxis case discussed and evaluated by supervising physician Alvino (Lizzychandler),Elizabeth NAYLOR Feb 06, 2017 08:12
[2017-02-06] MEDS ORDERED: Promethazine/Codeine 5ml UD ORAL PRN (08:15)
[2017-02-06] MEDS ORDERED: DuoNeb 0.5-3(2.5)mg/3ml neb HHN PRN (08:15)
[2017-02-06] MEDS: Amiodarone 200mg tab ORAL SCH (08:29)
[2017-02-06] MEDS: Aspirin EC 81mg tab ORAL SCH (08:30)
[2017-02-06] MEDS: Lisinopril 10mg tab ORAL SCH (08:30)
[2017-02-06 10:22] LABS: BAND NEUTROPHILS % (MANUAL) 1 % (0-8); BASOPHILS % (MANUAL) 0 % (0-2); EOSINOPHILS % (MANUAL) 3 % (0-3); LYMPHOCYTES % (MANUAL) 24 % (20-45); NEUTROPHILS % (MANUAL) 67 % (45-75); PLATELET ESTIMATE DECREASED; PLATELET MORPHOLOGY NORMAL; PROMYELOCYTES % 1 % (0-0); TOTAL CELLS COUNTED 100
--- NOTE | 2017-02-06 11:40 | Diagnostic Imaging Report ---
Indication: Dyspnea Comparison: 08/06/16 A single view chest radiograph was obtained. Findings: Cardiomediastinal appearance is within normal limits for age. Pacemakers noted on the left. A single lead projects over the right ventricle. Pulmonary vascularity is appropriate. The diaphragmatic contour is smooth and costophrenic angles are sharp. No pleural effusions are identified. The bones are unremarkable. Impression: No acute findings
[2017-02-06 11:43] VITALS: BP 110/76
[2017-02-06 13:06] LABS: TROPONIN I < 0.30 ng/mL (<=0.30)
--- NOTE | 2017-02-06 13:48 | History & Physical ---
History and Physical History & Physicial Dictated for Int Med-Dr Almonte no. [id number]. KATHY CAMPUZANO Feb 06, 2017 13:48
[2017-02-06] MEDS: Norco 5mg/325mg tab ORAL PRN (13:55)
[2017-02-06] MEDS: Azithromycin 250mg tab ORAL SCH (15:28)
[2017-02-06 16:14] VITALS: BP 111/70
--- NOTE | 2017-02-06 17:02 | History and Physical Report ---
DATE OF ADMISSION: 02/05/2017 CHIEF COMPLAINT/HISTORY OF PRESENT ILLNESS: The patient is a 36-year-old female, who presents with complaint of chest pain began three days prior to admission. The patient began to have chest pain. The patient stated that chest pain is " allover her chest". It is not localized to the substernal region or to the left shoulder. The patient denies radiation to the left. The patient also complains of dizziness. The patient complains of cough, which is productive of a whitish greenish sputum. The patient denies fevers, chills, nausea, vomiting, diarrhea, or constipation. The patient presented to [place] emergency room. Given the patient's previous history, the patient was admitted for chest pain to rule out acute coronary syndrome. REVIEW OF SYSTEMS: Constitutional: The patient denies weight loss or gain. The patient denies fever or chills. HEENT: The patient denies ear or throat pain. The patient does complain of headache as above. Cardiovascular: The patient complains of chest pain as above. The patient denies palpitations. Chest: The patient denies wheezes or shortness of breath. The patient complains of cough as above. Abdomen: The patient denies nausea, vomiting, diarrhea, or constipation. Genitourinary: The patient denies dysuria or increased frequency of urination. Neuromuscular: The patient denies seizures or generalized weakness. PAST MEDICAL HISTORY: Significant for: 1. Coronary artery disease, status post myocardial infarction in 2011. 2. Hypertension. 3. History of cerebrovascular accident in 2011. 4. Left hemiparesis. 5. Hypercholesterolemia. 6. History of asthma. PAST SURGICAL HISTORY: Significant for AICD placement in 2011. CURRENT MEDICATIONS: 1. Albuterol 2 mg p.o. four times daily. 2. Amiodarone 200 mg one tablet p.o. daily. 3. Aspirin 81 mg one tablet p.o. daily. 4. Atorvastatin 20 mg one tablet p.o. nightly. 5. Carvedilol 3.125 mg p.o. q.12 hours. 6. Klonopin 0.5 mg one tablet p.o. at bedtime. 7. Gabapentin 300 mg one tablet p.o. 3 times daily. 8. Lisinopril 5 mg one tablet p.o. daily. ALLERGIES: No known drug allergies. SOCIAL HISTORY: The patient is single and currently lives in a [facility] and [facility]. The patient denies tobacco or alcohol use. The patient is disabled. PHYSICAL EXAMINATION: GENERAL: The patient is a well-developed and well-nourished female, in no apparent distress. VITAL SIGNS: Temperature 97.7 degrees, respirations 18, pulse 70, and blood pressure 104/71. HEENT: Pupils are equal and responsive to light and accommodation. Extraocular movements are intact. NECK: Supple without lymphadenopathy. CHEST: Lungs are clear to auscultation bilaterally without wheezes or rales. CARDIOVASCULAR: Regular rate. S1 and S2. No murmurs, rubs, or gallops. ABDOMEN: Soft, nontender, and nondistended. Positive bowel sounds. No evidence of hepatosplenomegaly. Currently, no rebound or guarding noted. EXTREMITIES: Negative for clubbing, cyanosis, or edema. RECTAL: Refused. GENITALIA: Refused. NEUROLOGIC: The patient has a left hemiparesis. Cranial nerves II through XII are grossly intact without focal deficits. LABORATORY STUDIES: WBC 4.2, hemoglobin 12.6, hematocrit 39.6, and platelets 136,000. Sodium 141, potassium 4.0, chloride 107, CO2 22, BUN 14, creatinine 1.5, and glucose 94. Troponin is less than 0.3. BNP 237. EKG demonstrated normal sinus rhythm with ventricular rate approximately 65 beats per minute. There were nonspecific T-wave changes noted. Otherwise normal EKG. ASSESSMENT: This is a 36-year-old female. 1. Chest pain. 2. Vertigo. 3. Cough. 4. Hypertension. 5. Hypercholesterolemia. 6. Asthma. 7. History cerebrovascular accident. 8. Left hemiparesis. 9. Automatic implanted cardioverter defibrillator in situ. TREATMENT: 1. Chest pain. Cardiology consultation has been obtained with Dr. Julian Banegas. Serial troponin levels to be run. The patient may require a Cardiolite stress test. We will follow recommendations of Cardiology. 2. Cough. A Pulmonary consultation has been obtained with Dr. Arlene Vallecillo. The patient has been placed empirically on azithromycin. We will follow recommendation of Pulmonary. 3. Vertigo. This may be secondary to upper respiratory tract infection as above. The patient had a previous CT scan of the brain which was reported within normal limits. We will follow closely. 4. Hypertension. Continue lisinopril and carvedilol as above. 5. Hypercholesterolemia. Continue Lipitor as above. 6. Asthma. The patient has been placed on albuterol nebulized q.4 hours as needed. 7. Cerebrovascular disease. 8. Left hemiparesis. 9. automatic implantable cardioverter-defibrillator in situ. Kiran Avila M.D. DR: TERRA JOB#: [id number] CC:
[2017-02-06 20:00] VITALS: BP 107/59
[2017-02-06] MEDS: clonazePAM 0.5mg tab ORAL SCH ×2 (21:00→21:58)
[2017-02-06 21:20] LABS: TROPONIN I < 0.30 ng/mL (<=0.30)
[2017-02-06] MEDS ORDERED: Atorvastatin 20mg tab ORAL SCH (23:00)
--- NOTE | 2017-02-06 23:46 | Consultation ---
DATE OF CONSULTATION: 02/06/2017 CARDIOLOGY CONSULTATION: CONSULTING PHYSICIAN: Carlitos Latif M.D. REQUESTING PHYSICIAN: Ángel Almonte M.D. REASON FOR CONSULTATION: Chest pain in the setting of known coronary artery disease with cardiac defibrillator. HISTORY OF PRESENT ILLNESS: This is a 36-year-old female with a known history of hypertensive and ischemic heart disease. She suffered a myocardial infarction in 2011. She also has a history of paroxysmal atrial fibrillation with apparent cardioembolic stroke resulting in left-sided hemiparesis. She has a cardiac defibrillator. It is quite unusual for her age. Etiology for her accelerated cardiac disease is not presently known. The patient presented to the emergency room with several days of progressive cough and congestion, sharp, and associated with cough and mucus production. The chest pain is diffuse and nonlocalized. Initial cardiac workup was notable for negative troponin level. Her EKG reveals sinus rhythm with nonspecific ST-changes. Initial pro-natriuretic peptide assay was 237. The patient was last hospitalized here in 2015. Of note, in March 2016, she had myocardial perfusion scan here that revealed a fixed defect relating to prior infarct and no signs of ischemia. Ejection fraction was estimated at 45 to 50% by echocardiogram. She has a [facility] cardiac defibrillator. She denies any shocks from the device. PAST MEDICAL HISTORY: Further notable for: 1. Hyperlipidemia. 2. Coronary artery disease. 3. Left hemiparesis due to cerebrovascular accident. 4. Paroxysmal atrial fibrillation. 5. Hypertensive heart disease. 6. Coronary artery disease. 7. ICD. 8. Neuropathy. 9. Left foot drop. MEDICATIONS: Prior to admission, reviewed and reconciled. ALLERGIES: None. SOCIAL HISTORY: The patient is disabled. She denies alcohol or tobacco use. She lives in an assisted living facility. Prior history of substance abuse cannot be excluded at this time. REVIEW OF SYSTEMS: No fevers. She has had productive cough. There is no history of blood clotting. She has had a prior defibrillator discharge, but it has been over a year. She has had a prior stroke. There is no history of kidney failure. She has not noted any change in bowel habits. She remains on antiarrhythmic therapy with amiodarone. There is no history of diabetes or thyroid disorder. PHYSICAL EXAMINATION: GENERAL: Appears well, in no distress. VITAL SIGNS: Blood pressure is 104/70, pulse 72, and respiratory rate 18. No fevers. HEENT: Normocephalic and atraumatic. Conjunctivae are pink. Oropharynx is clear. NECK: Supple. Jugular venous pressure is normal. LUNGS: Clear. CARDIAC: Regular rhythm and rate. Normal S1 and S2 with a fourth heart sound. ICD pocket site is clean and dry. ABDOMEN: Soft and nontender. EXTREMITIES: Without edema. NEUROLOGIC: With left hemiparesis. No focal deficit. LABORATORY DATA: White count is 4.2 and hemoglobin 12.6. Potassium is 4, BUN 14, and creatinine 1.5. IMPRESSION AND PLAN: This is an unusual patient, who had age of 36, has had a prior stroke, cardiomyopathy, and atrial arrhythmias with myocardial infarction and defibrillator. Her current symptoms are suggestive of the pleuritic type of chest pain associated with an acute pulmonary infection. Nevertheless with a complicated cardiac history, strict precautions must be undertaken to exclude a new ischemic event. Recommend cardiac monitoring and serial troponins. Continue amiodarone, anti-platelet therapy, and statin drug. Repeat echocardiogram, antibiotics, and respiratory hygiene. Defibrillator interrogation. Based on clinical findings and progress, we will consider repeat noninvasive assessment of coronary flow reserve. Carlitos Latif M.D. DR: Joanne JOB#: [id number] CC:
[2017-02-07] VITALS (7 sets, daily range): BP systolic 100–125; BP diastolic 59–81
[2017-02-07] MEDS: Heparin 5000 units/ml inj SUBQ SCH ×3 (06:00→22:05)
[2017-02-07 08:12] LABS: TROPONIN I < 0.30 ng/mL (<=0.30)
[2017-02-07] MEDS: Amiodarone 200mg tab ORAL SCH (08:14)
[2017-02-07] MEDS: Lisinopril 10mg tab ORAL SCH (08:15)
[2017-02-07] MEDS: Azithromycin 250mg tab ORAL SCH (08:15)
[2017-02-07] MEDS: Aspirin EC 81mg tab ORAL SCH (08:15)
[2017-02-07] MEDS: Nitroglycerin Subl 0.4mg tab (Bottle Of 25) SL PRN ×3 (08:21→10:09)
[2017-02-07 08:31] LABS: CALCIUM 8.8 mg/dL (8.6-10.2); CREATININE 1.4 mg/dL (0.5-0.9); GLOMERULAR FILTRATION RATE 51.5 mL/min (>60); POTASSIUM 4.1 mEQ/L (3.4-4.9)
[2017-02-07 08:32] LABS: MEAN CORPUSCULAR HEMOGLOBIN 29.9 PG (27.0-31.0); MEAN CORPUSCULAR HGB CONC 31.9 G/DL (32.0-36.0); MEAN CORPUSCULAR VOLUME 94 FL (80-99); MEAN PLATELET VOLUME 11.8 FL (6.5-10.1); PLATELET COUNT 109 K/UL (150-450); RED BLOOD COUNT 3.83 M/UL (4.20-5.40); RED CELL DISTRIBUTION WIDTH 14.4 % (11.6-14.8); WHITE BLOOD COUNT 2.7 K/UL (4.8-10.8)
[2017-02-07 09:20] LABS: BAND NEUTROPHILS % (MANUAL) 0 % (0-8); BASOPHILS % (MANUAL) 0 % (0-2); EOSINOPHILS % (MANUAL) 2 % (0-3); LYMPHOCYTES % (MANUAL) 50 % (20-45); NEUTROPHILS % (MANUAL) 45 % (45-75); PLATELET ESTIMATE DECREASED; PLATELET MORPHOLOGY NORMAL; TOTAL CELLS COUNTED 100
--- NOTE | 2017-02-07 11:08 | Diagnostic Imaging Report ---
Indication:Elevated liver function tests Technique: Grayscale and duplex Doppler imaging of the abdomen performed. Comparison: None Findings: The liver, demonstrated part of the pancreas, gallbladder, aorta and IVC, spleen appear unremarkable. Borderline small kidneys demonstrated without other associated abnormalities. The left kidney is 8 CM. Right kidney is 8.8 CM in size. There is no biliary ductal dilatation identified. Doppler evaluation of the main portal vein shows patency. There is no ascites. No hydronephrosis seen. Impression: Negative abdominal ultrasound. Borderline small kidneys
--- NOTE | 2017-02-07 11:32 | Progress Note ---
DATE: 02/07/2017 CARDIOLOGY PROGRESS NOTE SUBJECTIVE: The patient complains of chest pain. She notes cough, congestion, and difficulty mobilizing her sputum. She was given nitroglycerin with no response. EKG reviewed by me, sinus rhythm, nonspecific ST changes. No acute change from prior study. OBJECTIVE: VITAL SIGNS: Blood pressure is 110/77, pulse rate 60, and respiratory rate 18. CHEST: Chest wall tenderness with reproducible chest pain noted. LUNGS: With few rhonchi. CARDIAC: Regular. ABDOMEN: Soft. No edema. LABORATORY AND DIAGNOSTIC DATA: Monitored rhythm reveals sinus with ventricular pacing by demand. Troponins are negative. BUN 8, creatinine 1.4, and potassium 4.1. White count 2.7 and hemoglobin 11.4. Thyroid function within normal limits. IMPRESSION: 1. Pleuritic chest pain. 2. History of cardiomyopathy. 3. Cardiac defibrillator with history of heart block and ventricular arrhythmias. 4. Upper respiratory infection. 5. Chronic kidney disease. PLAN: Antibiotics. Respiratory hygiene. Anti-inflammatory agent. Avoid nitrates at this time. We will review echocardiogram. Continue amiodarone for arrhythmia suppression. Defibrillator interrogation will be arranged as well. Carlitos Latif M.D. DR: ROSS JOB#: [id number] CC:
--- NOTE | 2017-02-07 13:10 | Pulmonology Progress Note ---
Assessment/Plan Assessment/Plan ASSESSMENT chest pain r/o ACS possible costochondritis recent URI possible bronchitis CAD with hx of DC ( 2011) HTN hx of asthma cardiomyopathy AICD severe transaminitis chronic renal insufficiency PAF PLAN OF CARE tele cardio follows serial troponin x 3 negative ECG no ischemic changes, thus patient was ruled out for ACS ECHO with EF 60-65% and RVSP of 30 interrogation will be arranged by cardio continue ASA and statin check lipid panel with elevated TC and LDL educated on compliance with statin therapy and low fat low cholesterol diet increased statin dose to 40 mg/day BP management with BB and JUVENTINO, optimize as needed medical management of HF with BB, JUVENTINO O2 prn HHN with bronchodilator empiric abx antitussive prn not appeared to be in asthma exacerbation, chest pain reproducible on palpation, likely costochondritis pain management on Amiodarone, low TSH and low T3 likely due to disease process in SR, no evidence of A fib , not cleared why not on a/coagulation abdominal US negative, borderline small kidneys, likely element of CRI monitor creat hepatitis panel pending trend LFT GI eval as per PMD discretion swallow eval in am DVT prophylaxis case discussed and evaluated by supervising physician Subjective Allergies: Coded Allergies: No Known Allergies (Unverified , 05/15/15) Subjective reports left sided pain, numbness with hx of L hemiparesis( chronic) no chest pain, no SOB + drooling CT head negative Objective Last 24 Hour Vital Signs Date Time Temp Pulse Resp B/P Pulse Ox O2 Delivery O2 Flow Rate FiO2 02/07/17 11:34 97.7 57 18 108/72 100 Room Air 02/07/17 10:09 110/70 02/07/17 09:58 110/77 02/07/17 08:21 120/80 02/07/17 08:15 120/80 02/07/17 08:15 60 120/80 02/07/17 08:00 60 02/07/17 07:57 97.7 60 18 120/80 100 Nasal Cannula 3.0 02/07/17 07:45 63 18 Room Air 02/07/17 04:33 97.0 60 18 104/64 98 Room Air 02/07/17 03:43 60 02/07/17 00:28 97.3 60 18 115/59 99 Room Air 02/06/17 23:37 62 02/06/17 22:05 60 111/78 02/06/17 20:00 97.0 60 18 107/59 100 Room Air 02/06/17 20:00 60 02/06/17 19:35 59 18 Room Air 02/06/17 16:14 97.7 61 18 111/70 99 Room Air 02/06/17 16:00 57 Intake and Output 02/06/17 02/07/17 19:00 07:00 Intake Total 360 ml Output Total 500 ml Balance -140 ml Intake Oral 360 ml Output Urine Total 500 ml # Voids 2 # Bowel Movements 1 1 Objective General Appearance: WD/WN, no apparent distress, alert Lines, tubes and drains: peripheral HEENT: normocephalic, atraumatic, anicteric, mucous membranes moist Neck: non-tender, supple, other - left chest AICD Respiratory/Chest: lungs clear - with moderate air entry , no respiratory distress, no accessory muscle use Cardiovascular/Chest: normal rate, regular rhythm, no JVD Abdomen: normal bowel sounds, non tender, soft Skin Exam: warm/dry Neurologic: alert, oriented x 3, responsive, L hemiparesis Musculoskeletal: normal muscle bulk Laboratory Tests 02/06/17 20:55: Troponin I < 0.30 02/07/17 05:05: Troponin I < 0.30, White Blood Count 2.7L, Red Blood Count 3.83L, Hemoglobin 11.4L, Hematocrit 35.8L, Mean Corpuscular Volume 94, Mean Corpuscular Hemoglobin 29.9, Mean Corpuscular Hemoglobin Concent 31.9L, Red Cell Distribution Width 14.4, Platelet Count 109L, Mean Platelet Volume 11.8H, Neutrophils (%) (Auto) , Lymphocytes (%) (Auto) , Monocytes (%) (Auto) , Eosinophils (%) (Auto) , Basophils (%) (Auto) , Differential Total Cells Counted 100, Neutrophils % (Manual) 45, Lymphocytes % (Manual) 50H, Monocytes % (Manual) 3, Eosinophils % (Manual) 2, Basophils % (Manual) 0, Band Neutrophils 0 , Platelet Estimate DecreasedL, Platelet Morphology Normal, Red Blood Cell Morphology Normal, Sodium Level 140, Potassium Level 4.1, Chloride Level 102, Carbon Dioxide Level 21, Anion Gap 17H, Blood Urea Nitrogen 8, Creatinine 1.4H, Estimat Glomerular Filtration Rate 51.5, Glucose Level 71L, Calcium Level 8.8, Hepatitis A IgM Antibody [Pending], Hepatitis B Surface Antigen [Pending], Hepatitis B Core IgM Antibody [Pending], Hepatitis C Antibody [Pending] Current Medications Medications (Trade) Dose Ordered Sig/Vilma Route PRN Reason Start Time Stop Time Status Last Admin Dose Admin Acetaminophen/ Hydrocodone Bitart ([place] 5/325) 1 tab Q6H PRN ORAL For Pain 02/05/17 20:45 02/12/17 20:44 02/06/17 13:55 Albuterol Sulfate (Proventil MDI) 2 puff Q4H PRN INH Shortness of Breath 02/05/17 21:15 03/07/17 21:14 Albuterol/ Ipratropium (DuoNeb 0.5-3(2.5)mg/3ml) 3 ml Q4H PRN HHN Shortness of Breath 02/06/17 08:15 02/11/17 08:14 Amiodarone HCl (Cordarone) 200 mg DAILY ORAL 02/06/17 09:00 03/08/17 08:59 02/07/17 08:14 Aspirin (Ecotrin) 81 mg DAILY ORAL 02/06/17 09:00 03/08/17 08:59 02/07/17 08:15 Atorvastatin Calcium (Lipitor) 20 mg BEDTIME ORAL 02/06/17 23:00 03/08/17 22:59 02/06/17 23:21 Azithromycin (Zithromax) 500 mg DAILY ORAL 02/06/17 14:30 02/13/17 14:29 02/07/17 08:15 Carvedilol (Coreg) 3.125 mg EVERY 12 HOURS ORAL 02/06/17 09:00 03/08/17 08:59 02/07/17 08:15 Clonazepam (KlonoPIN) 0.5 mg QHS ORAL 02/05/17 23:00 02/12/17 22:59 02/05/17 22:47 Gabapentin (Neurontin) 300 mg THREE TIMES A DAY ORAL 02/06/17 09:00 03/08/17 08:59 02/07/17 12:24 Heparin Sodium (Porcine) (Heparin 5000 units/ml) 5,000 units EVERY 8 HOURS SUBQ 02/05/17 22:00 03/07/17 21:59 02/06/17 05:37 Lisinopril (Zestril) 5 mg DAILY ORAL 02/06/17 09:00 03/08/17 08:59 02/07/17 08:15 Nitroglycerin (Ntg) 0.4 mg Q5M PRN SL Prn Chest Pain 02/05/17 20:45 03/07/17 20:44 02/07/17 10:09 Ondansetron HCl (Zofran) 4 mg Q6H PRN IVP Nausea & Vomiting 02/06/17 18:30 03/08/17 18:29 02/06/17 18:49 Promethazine HCl/ Codeine (Phenergan with Codeine) 5 ml EVERY 6 HOURS PRN ORAL For Cough 02/06/17 08:15 03/08/17 08:14 [facility]Elizabeth NP Feb 07, 2017 13:09
[2017-02-07] MEDS ORDERED: DuoNeb 0.5-3(2.5)mg/3ml neb HHN PRN (13:15)
[2017-02-07 13:23] LABS: TROPONIN I < 0.30 ng/mL (<=0.30)
--- NOTE | 2017-02-07 14:14 | Internal Med Progress Note ---
Subjective Date of Service: Feb 07, 2017 Physician Name Kathy Campuzano Attending Physician Ángel Almonte MD Current Medications Medications (Trade) Dose Ordered Sig/Vilma Route PRN Reason Start Time Stop Time Status Last Admin Dose Admin Acetaminophen/ Hydrocodone Bitart ([place] 5/325) 1 tab Q6H PRN ORAL For Pain 02/05/17 20:45 02/12/17 20:44 02/06/17 13:55 Albuterol Sulfate (Proventil MDI) 2 puff Q4H PRN INH Shortness of Breath 02/05/17 21:15 03/07/17 21:14 Albuterol/ Ipratropium (DuoNeb 0.5-3(2.5)mg/3ml) 3 ml Q4H PRN HHN Shortness of Breath 02/07/17 13:15 02/12/17 13:14 Albuterol/ Ipratropium (DuoNeb 0.5-3(2.5)mg/3ml) 3 ml TID HHN 02/07/17 18:00 02/12/17 17:59 Amiodarone HCl (Cordarone) 200 mg DAILY ORAL 02/06/17 09:00 03/08/17 08:59 02/07/17 08:14 Aspirin (Ecotrin) 81 mg DAILY ORAL 02/06/17 09:00 03/08/17 08:59 02/07/17 08:15 Atorvastatin Calcium (Lipitor) 40 mg BEDTIME ORAL 02/07/17 21:00 03/09/17 20:59 Azithromycin (Zithromax) 500 mg DAILY ORAL 02/06/17 14:30 02/13/17 14:29 02/07/17 08:15 Carvedilol (Coreg) 3.125 mg EVERY 12 HOURS ORAL 02/06/17 09:00 03/08/17 08:59 02/07/17 08:15 Clonazepam (KlonoPIN) 0.5 mg QHS ORAL 02/05/17 23:00 02/12/17 22:59 02/05/17 22:47 Gabapentin (Neurontin) 300 mg THREE TIMES A DAY ORAL 02/06/17 09:00 03/08/17 08:59 02/07/17 12:24 Heparin Sodium (Porcine) (Heparin 5000 units/ml) 5,000 units EVERY 8 HOURS SUBQ 02/05/17 22:00 03/07/17 21:59 02/07/17 13:39 Lisinopril (Zestril) 5 mg DAILY ORAL 02/06/17 09:00 03/08/17 08:59 02/07/17 08:15 Nitroglycerin (Ntg) 0.4 mg Q5M PRN SL Prn Chest Pain 02/05/17 20:45 03/07/17 20:44 02/07/17 10:09 Ondansetron HCl (Zofran) 4 mg Q6H PRN IVP Nausea & Vomiting 02/06/17 18:30 03/08/17 18:29 02/06/17 18:49 Promethazine HCl/ Codeine (Phenergan with Codeine) 5 ml EVERY 6 HOURS PRN ORAL For Cough 02/06/17 08:15 03/08/17 08:14 Allergies: Coded Allergies: No Known Allergies (Unverified , 05/15/15) ROS Limited/Unobtainable: No Constitutional: Reports: no symptoms HEENT: Reports: no symptoms Cardiovascular: Reports: chest pain Respiratory: Reports: cough Gastrointestinal/Abdominal: Reports: no symptoms Genitourinary: Reports: no symptoms Neurologic/Psychiatric: Reports: no symptoms Subjective 36 YO F admitted with chest pain. Cover for [facility] Almonte. Objective Last Vital Signs Date Time Temp Pulse Resp B/P Pulse Ox O2 Delivery O2 Flow Rate FiO2 02/07/17 11:34 97.7 57 18 108/72 100 Room Air 02/07/17 07:57 3.0 Laboratory Tests Test 02/06/17 20:55 02/07/17 05:05 02/07/17 13:00 Troponin I < 0.30 ng/mL (<=0.30) < 0.30 ng/mL (<=0.30) < 0.30 ng/mL (<=0.30) White Blood Count 2.7 K/UL (4.8-10.8) L Red Blood Count 3.83 M/UL (4.20-5.40) L Hemoglobin 11.4 G/DL (12.0-16.0) L Hematocrit 35.8 % (37.0-47.0) L Mean Corpuscular Volume 94 FL (80-99) Mean Corpuscular Hemoglobin 29.9 PG (27.0-31.0) Mean Corpuscular Hemoglobin Concent 31.9 G/DL (32.0-36.0) L Red Cell Distribution Width 14.4 % (11.6-14.8) Platelet Count 109 K/UL (150-450) L Mean Platelet Volume 11.8 FL (6.5-10.1) H Neutrophils (%) (Auto) % (45.0-75.0) Lymphocytes (%) (Auto) % (20.0-45.0) Monocytes (%) (Auto) % (1.0-10.0) Eosinophils (%) (Auto) % (0.0-3.0) Basophils (%) (Auto) % (0.0-2.0) Differential Total Cells Counted 100 Neutrophils % (Manual) 45 % (45-75) Lymphocytes % (Manual) 50 % (20-45) H Monocytes % (Manual) 3 % (1-10) Eosinophils % (Manual) 2 % (0-3) Basophils % (Manual) 0 % (0-2) Band Neutrophils 0 % (0-8) Platelet Estimate Decreased L Platelet Morphology Normal Red Blood Cell Morphology Normal Sodium Level 140 mEQ/L (135-145) Potassium Level 4.1 mEQ/L (3.4-4.9) Chloride Level 102 mEQ/L (98-107) Carbon Dioxide Level 21 mEQ/L (20-30) Anion Gap 17 (5-15) H Blood Urea Nitrogen 8 mg/dL (7-23) Creatinine 1.4 mg/dL (0.5-0.9) H Estimat Glomerular Filtration Rate 51.5 mL/min (>60) Glucose Level 71 mg/dL (74-106) L Calcium Level 8.8 mg/dL (8.6-10.2) Hepatitis A IgM Antibody Pending Hepatitis B Surface Antigen Pending Hepatitis B Core IgM Antibody Pending Hepatitis C Antibody Pending Intake and Output 02/06/17 02/07/17 19:00 07:00 Intake Total 360 ml Output Total 500 ml Balance -140 ml Intake Oral 360 ml Output Urine Total 500 ml # Voids 2 # Bowel Movements 1 1 Objective General: alert, cooperative, no distress, appears stated age Head: normocephalic, without obvious abnormality, atraumatic Eyes: conjunctivae/corneas clear. PERRL, EOM's intact Throat: lips, mucosa, and tongue normal. MMM Neck: supple, symmetrical, trachea midline, and no JVD Lungs: clear to auscultation bilaterally Heart: regular rate and rhythm, S1, S2 normal, no murmur, click, rub or gallop Abdomen: soft, non-tender, non-distended, bowel sounds normal; no masses or organomegaly Extremities: extremities normal, atraumatic, no cyanosis or edema Pulses: 2+ and symmetric Skin: skin color, texture, turgor normal; no rashes or lesions Neurologic: Left hemiplegia; grossly normal, no focal deficits Assessment/Plan Problem List: (1) CAD (coronary artery disease) (2) Cough Assessment & Plan: Continue azithromycin (3) Vertigo (4) Cerebral vascular disease (5) HTN (hypertension) Assessment & Plan: Cont Zestril and coreg (6) Asthma Assessment & Plan: See pulmonary note. (7) Left hemiparesis (8) AICD (automatic cardioverter/defibrillator) present (9) Chest pain Assessment & Plan: Pleuritic; see cardiology discussion. Troponin neg (10) Hemiparesis affecting left side as late effect of cerebrovascular accident Status: progressing KATHY CAMPUZANO Feb 07, 2017 14:14
[2017-02-07] MEDS: Norco 5mg/325mg tab ORAL PRN (17:57)
[2017-02-07] MEDS: DuoNeb 0.5-3(2.5)mg/3ml neb HHN SCH (18:00)
[2017-02-07] MEDS ORDERED: Morphine Sulfate 2mg/ml Inj IVP ONE (20:45)
[2017-02-07] MEDS: clonazePAM 0.5mg tab ORAL SCH (21:00)
[2017-02-07] MEDS ORDERED: Atorvastatin 20mg tab ORAL SCH (21:00)
[2017-02-07 21:57] LABS: TROPONIN I < 0.30 ng/mL (<=0.30)
[2017-02-08] MEDS: Norco 5mg/325mg tab ORAL PRN (03:06)
[2017-02-08 04:01] VITALS: BP 112/68
[2017-02-08] MEDS: Heparin 5000 units/ml inj SUBQ SCH ×3 (06:00→22:00)
[2017-02-08 07:09] LABS: MEAN CORPUSCULAR HEMOGLOBIN 29.9 PG (27.0-31.0); MEAN CORPUSCULAR HGB CONC 32.3 G/DL (32.0-36.0); MEAN CORPUSCULAR VOLUME 92 FL (80-99); PLATELET COUNT 87 K/UL (150-450); RED BLOOD COUNT 3.88 M/UL (4.20-5.40); WHITE BLOOD COUNT 3.1 K/UL (4.8-10.8)
[2017-02-08 07:15] LABS: ANION GAP 15 (5-15); CALCIUM 8.5 mg/dL (8.6-10.2); CARBON DIOXIDE 21 mEQ/L (20-30); CHLORIDE 99 mEQ/L (98-107); CREATININE 1.2 mg/dL (0.5-0.9); GLOMERULAR FILTRATION RATE > 60 mL/min (>60); HEMOLYSIS 16; POTASSIUM 4.1 mEQ/L (3.4-4.9); SODIUM 135 mEQ/L (135-145)
[2017-02-08 08:00] VITALS: BP 115/75
[2017-02-08] MEDS: DuoNeb 0.5-3(2.5)mg/3ml neb HHN SCH ×3 (08:02→20:37)
--- NOTE | 2017-02-08 08:05 | Cardiology Report ---
APPROVED REPORT EXAM: Two-dimensional and M-mode echocardiogram with Doppler and color Doppler. INDICATION Chest Pain M-Mode DIMENSIONS IVSd1.0 (0.7-1.1cm)Left Atrium (MM)3.3 (1.6-4.0cm) LVDd4.0 (3.5-5.6cm)Aortic Root2.2 (2.0-3.7cm) PWd0.9 (0.7-1.1cm)Aortic Cusp Exc.1.8 (1.5-2.0cm) LVDs3.0 (2.5-4.0cm) PWs0.7 cm Normal left ventricular chamber size with minimal global hypokinesis. Left ventricular ejection fraction estimated to be 50 %. No evidence of left ventricular hypertrophy. No evidence of pericardial fat or effusion. Mild left atrial enlargement by 2D. Right cardiac chamber sizes are within normal limits. Focal aortic valve sclerosis with adequate cusp excursion Thickened mitral valve leaflets with normal excursion. Mitral annulus and aortic root calcification. Pulmonic valve is well visualized. Normal tricuspid valve structure. IVC is normal in size with physiologic collapse. Probable pacemaker wire present in the right side chambers. A color flow and spectral Doppler study was performed and revealed: Trace aortic regurgitation. No mitral regurgitation. Normal left ventricular diastolic function. Mild tricuspid regurgitation. Tricuspid systolic velocities suggests peak right ventricular systolic pressure of 30 mmHg Pulmonic regurgitation present.
[2017-02-08] MEDS: Aspirin EC 81mg tab ORAL SCH (08:38)
[2017-02-08] MEDS: Azithromycin 250mg tab ORAL SCH (08:38)
[2017-02-08] MEDS: Amiodarone 200mg tab ORAL SCH (08:39)
[2017-02-08] MEDS: Lisinopril 10mg tab ORAL SCH (08:39)
--- NOTE | 2017-02-08 08:54 | Internal Med Progress Note ---
Subjective Date of Service: Feb 08, 2017 Physician Name Kathy Campuzano Attending Physician Ángel Almonte MD Current Medications Medications (Trade) Dose Ordered Sig/Vilma Route PRN Reason Start Time Stop Time Status Last Admin Dose Admin Acetaminophen/ Hydrocodone Bitart ([place] 5/325) 1 tab Q6H PRN ORAL For Pain 02/05/17 20:45 02/12/17 20:44 02/08/17 03:06 Albuterol Sulfate (Proventil MDI) 2 puff Q4H PRN INH Shortness of Breath 02/05/17 21:15 03/07/17 21:14 Albuterol/ Ipratropium (DuoNeb 0.5-3(2.5)mg/3ml) 3 ml Q4H PRN HHN Shortness of Breath 02/07/17 13:15 02/12/17 13:14 Albuterol/ Ipratropium (DuoNeb 0.5-3(2.5)mg/3ml) 3 ml TID HHN 02/07/17 18:00 02/12/17 17:59 02/08/17 08:02 Amiodarone HCl (Cordarone) 200 mg DAILY ORAL 02/06/17 09:00 03/08/17 08:59 02/08/17 08:39 Aspirin (Ecotrin) 81 mg DAILY ORAL 02/06/17 09:00 03/08/17 08:59 02/08/17 08:38 Atorvastatin Calcium (Lipitor) 40 mg BEDTIME ORAL 02/07/17 21:00 03/09/17 20:59 02/07/17 21:09 Azithromycin (Zithromax) 500 mg DAILY ORAL 02/06/17 14:30 02/13/17 14:29 02/08/17 08:38 Carvedilol (Coreg) 3.125 mg EVERY 12 HOURS ORAL 02/06/17 09:00 03/08/17 08:59 02/08/17 08:39 Cetylpyridinium Chloride (Cepacol) 1 lozenge Q2H PRN BRI For Cough 02/07/17 14:30 03/09/17 14:29 Clonazepam (KlonoPIN) 0.5 mg QHS ORAL 02/05/17 23:00 02/12/17 22:59 02/05/17 22:47 Gabapentin (Neurontin) 300 mg THREE TIMES A DAY ORAL 02/06/17 09:00 03/08/17 08:59 02/08/17 08:39 Heparin Sodium (Porcine) (Heparin 5000 units/ml) 5,000 units EVERY 8 HOURS SUBQ 02/05/17 22:00 03/07/17 21:59 02/07/17 22:05 Lisinopril (Zestril) 5 mg DAILY ORAL 02/06/17 09:00 03/08/17 08:59 02/08/17 08:39 Nitroglycerin (Ntg) 0.4 mg Q5M PRN SL Prn Chest Pain 02/05/17 20:45 03/07/17 20:44 02/07/17 10:09 Ondansetron HCl (Zofran) 4 mg Q6H PRN IVP Nausea & Vomiting 02/06/17 18:30 03/08/17 18:29 02/06/17 18:49 Promethazine HCl/ Codeine (Phenergan with Codeine) 5 ml EVERY 6 HOURS PRN ORAL For Cough 02/06/17 08:15 03/08/17 08:14 Allergies: Coded Allergies: No Known Allergies (Unverified , 05/15/15) ROS Limited/Unobtainable: No Constitutional: Reports: no symptoms HEENT: Reports: no symptoms Cardiovascular: Reports: chest pain Respiratory: Reports: cough Gastrointestinal/Abdominal: Reports: no symptoms Genitourinary: Reports: no symptoms Neurologic/Psychiatric: Reports: no symptoms Subjective 36 YO F admitted with chest pain. Cover for Int Mary Almonte. Objective Last Vital Signs Date Time Temp Pulse Resp B/P Pulse Ox O2 Delivery O2 Flow Rate FiO2 02/08/17 08:39 115/75 02/08/17 08:39 66 02/08/17 08:10 18 99 Room Air 02/08/17 08:02 21 02/08/17 08:00 96.6 02/07/17 07:57 3.0 Laboratory Tests Test 02/07/17 13:00 02/07/17 21:05 02/08/17 05:20 Troponin I < 0.30 ng/mL (<=0.30) < 0.30 ng/mL (<=0.30) White Blood Count 3.1 K/UL (4.8-10.8) L Red Blood Count 3.88 M/UL (4.20-5.40) L Hemoglobin 11.6 G/DL (12.0-16.0) L Hematocrit 35.8 % (37.0-47.0) L Mean Corpuscular Volume 92 FL (80-99) Mean Corpuscular Hemoglobin 29.9 PG (27.0-31.0) Mean Corpuscular Hemoglobin Concent 32.3 G/DL (32.0-36.0) Red Cell Distribution Width 14.0 % (11.6-14.8) Platelet Count 87 K/UL (150-450) L Mean Platelet Volume 13.0 FL (6.5-10.1) H Neutrophils (%) (Auto) % (45.0-75.0) Lymphocytes (%) (Auto) % (20.0-45.0) Monocytes (%) (Auto) % (1.0-10.0) Eosinophils (%) (Auto) % (0.0-3.0) Basophils (%) (Auto) % (0.0-2.0) Neutrophils % (Manual) Pending Lymphocytes % (Manual) Pending Platelet Estimate Pending Platelet Morphology Pending Sodium Level 135 mEQ/L (135-145) Potassium Level 4.1 mEQ/L (3.4-4.9) Chloride Level 99 mEQ/L (98-107) Carbon Dioxide Level 21 mEQ/L (20-30) Anion Gap 15 (5-15) Blood Urea Nitrogen 7 mg/dL (7-23) Creatinine 1.2 mg/dL (0.5-0.9) H Estimat Glomerular Filtration Rate > 60 mL/min (>60) Glucose Level 73 mg/dL (74-106) L Calcium Level 8.5 mg/dL (8.6-10.2) L Intake and Output 02/07/17 02/08/17 19:00 07:00 Intake Total 390 ml Output Total 450 ml Balance -60 ml Intake Oral 390 ml Output Urine Total 450 ml # Voids 2 # Bowel Movements 1 1 Objective General: alert, cooperative, no distress, appears stated age Head: normocephalic, without obvious abnormality, atraumatic Eyes: conjunctivae/corneas clear. PERRL, EOM's intact Throat: lips, mucosa, and tongue normal. MMM Neck: supple, symmetrical, trachea midline, and no JVD Lungs: clear to auscultation bilaterally Heart: regular rate and rhythm, S1, S2 normal, no murmur, click, rub or gallop Abdomen: soft, non-tender, non-distended, bowel sounds normal; no masses or organomegaly Extremities: extremities normal, atraumatic, no cyanosis or edema Pulses: 2+ and symmetric Skin: skin color, texture, turgor normal; no rashes or lesions Neurologic: Left hemiplegia; grossly normal, no focal deficits Assessment/Plan Problem List: (1) CAD (coronary artery disease) (2) Cough Assessment & Plan: Continue azithromycin (3) Vertigo (4) Cerebral vascular disease (5) HTN (hypertension) Assessment & Plan: Cont Zestril and coreg (6) Asthma Assessment & Plan: See pulmonary note. (7) Left hemiparesis (8) AICD (automatic cardioverter/defibrillator) present (9) Chest pain Assessment & Plan: Pleuritic; see cardiology discussion. Troponin neg; echo LVEF=50% (10) Hemiparesis affecting left side as late effect of cerebrovascular accident KATHY CAMPUZANO Feb 08, 2017 08:54
[2017-02-08] MEDS ORDERED: Norco 5mg/325mg tab ORAL PRN (09:00)
[2017-02-08] MEDS ORDERED: Morphine Sulfate 2mg/ml Inj IVP PRN (09:00)
[2017-02-08 09:24] LABS: EOSINOPHILS % (MANUAL) 1 % (0-3); LYMPHOCYTES % (MANUAL) 45 % (20-45); NEUTROPHILS % (MANUAL) 48 % (45-75); TOTAL CELLS COUNTED 100
[2017-02-08 09:25] LABS: ANISOCYTOSIS 1+; BAND NEUTROPHILS % (MANUAL) 0 % (0-8); BASOPHILS % (MANUAL) 0 % (0-2); HYPOCHROMASIA 1+; PLATELET CLUMPS 1+
[2017-02-08 09:26] LABS: PLATELET ESTIMATE DECREASED
[2017-02-08 11:21] VITALS: BP 122/76
--- NOTE | 2017-02-08 12:50 | Pulmonology Progress Note ---
Assessment/Plan Problems: (1) Chest wall pain (2) AICD (automatic cardioverter/defibrillator) present (3) Asthma (4) Cardiomyopathy (5) Cerebral vascular disease Assessment/Plan ICD interrogated symptomatic treatment dc home when ok with cario Subjective ROS Limited/Unobtainable: No Constitutional: Reports: no symptoms HEENT: Repors: no symptoms Respiratory: Reports: no symptoms Allergies: Coded Allergies: No Known Allergies (Unverified , 05/15/15) Objective Last 24 Hour Vital Signs Date Time Temp Pulse Resp B/P Pulse Ox O2 Delivery O2 Flow Rate FiO2 02/08/17 11:21 98.1 58 18 122/76 100 Room Air 02/08/17 08:39 115/75 02/08/17 08:39 66 115/75 02/08/17 08:10 66 18 99 Room Air 02/08/17 08:02 64 16 Room Air 21 02/08/17 08:02 64 16 98 Room Air 21 02/08/17 08:00 96.6 65 18 115/75 99 Room Air 02/08/17 08:00 59 02/08/17 04:01 98.2 57 19 112/68 99 Room Air 02/08/17 03:42 57 02/07/17 23:56 98.5 55 19 100/64 98 Room Air 02/07/17 23:54 60 02/07/17 21:00 55 122/73 02/07/17 20:26 98.1 61 18 125/81 98 Room Air 02/07/17 19:50 59 02/07/17 19:30 60 16 Room Air 21 02/07/17 16:00 55 02/07/17 15:45 97.2 61 18 112/71 97 Room Air Intake and Output 02/07/17 02/08/17 19:00 07:00 Intake Total 390 ml Output Total 450 ml Balance -60 ml Intake Oral 390 ml Output Urine Total 450 ml # Voids 2 # Bowel Movements 1 1 General Appearance: WD/WN HEENT: normocephalic, atraumatic Respiratory/Chest: chest wall non-tender, lungs clear Breasts: no masses Cardiovascular: normal peripheral pulses, regular rhythm Abdomen: normal bowel sounds, soft, non tender Genitourinary: normal external genitalia Extremities: no cyanosis Skin: no lesions 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 normal Lymphatic: no neck adenopathy Laboratory Tests 02/07/17 13:00: Troponin I < 0.30 02/07/17 21:05: Troponin I < 0.30 02/08/17 05:20: White Blood Count 3.1L, Red Blood Count 3.88L, Hemoglobin 11.6L, Hematocrit 35.8L, Mean Corpuscular Volume 92, Mean Corpuscular Hemoglobin 29.9, Mean Corpuscular Hemoglobin Concent 32.3, Red Cell Distribution Width 14.0, Platelet Count 87L, Mean Platelet Volume 13.0H, Neutrophils (%) (Auto) , Lymphocytes (%) (Auto) , Monocytes (%) (Auto) , Eosinophils (%) (Auto) , Basophils (%) (Auto) , Differential Total Cells Counted 100, Neutrophils % (Manual) 48, Lymphocytes % ( Manual) 45, Monocytes % (Manual) 6, Eosinophils % (Manual) 1, Basophils % ( Manual) 0, Band Neutrophils 0, Platelet Estimate DecreasedL, Platelet Morphology , Clumped Platelets 1+, Hypochromasia 1+, Anisocytosis 1+, Sodium Level 135, Potassium Level 4.1, Chloride Level 99, Carbon Dioxide Level 21, Anion Gap 15, Blood Urea Nitrogen 7, Creatinine 1.2H, Estimat Glomerular Filtration Rate > 60, Glucose Level 73L, Calcium Level 8.5L Current Medications Medications (Trade) Dose Ordered Sig/Vilma Route PRN Reason Start Time Stop Time Status Last Admin Dose Admin Acetaminophen/ Hydrocodone Bitart ([place] 5/325) 1 tab Q6H PRN ORAL Moderate Pain (Pain Scale 4-6) 02/08/17 09:00 02/15/17 08:59 Albuterol Sulfate (Proventil MDI) 2 puff Q4H PRN INH Shortness of Breath 02/05/17 21:15 03/07/17 21:14 Albuterol/ Ipratropium (DuoNeb 0.5-3(2.5)mg/3ml) 3 ml Q4H PRN HHN Shortness of Breath 02/07/17 13:15 02/12/17 13:14 Albuterol/ Ipratropium (DuoNeb 0.5-3(2.5)mg/3ml) 3 ml TID HHN 02/07/17 18:00 02/12/17 17:59 02/08/17 08:02 Amiodarone HCl (Cordarone) 200 mg DAILY ORAL 02/06/17 09:00 03/08/17 08:59 02/08/17 08:39 Aspirin (Ecotrin) 81 mg DAILY ORAL 02/06/17 09:00 03/08/17 08:59 02/08/17 08:38 Atorvastatin Calcium (Lipitor) 40 mg BEDTIME ORAL 02/08/17 21:00 03/10/17 20:59 Azithromycin (Zithromax) 500 mg DAILY ORAL 02/06/17 14:30 02/13/17 14:29 02/08/17 08:38 Carvedilol (Coreg) 3.125 mg EVERY 12 HOURS ORAL 02/06/17 09:00 03/08/17 08:59 02/08/17 08:39 Cetylpyridinium Chloride (Cepacol) 1 lozenge Q2H PRN BRI For Cough 02/07/17 14:30 03/09/17 14:29 Clonazepam (KlonoPIN) 0.5 mg QHS ORAL 02/05/17 23:00 02/12/17 22:59 02/05/17 22:47 Gabapentin (Neurontin) 300 mg THREE TIMES A DAY ORAL 02/06/17 09:00 03/08/17 08:59 02/08/17 12:18 Heparin Sodium (Porcine) (Heparin 5000 units/ml) 5,000 units EVERY 8 HOURS SUBQ 02/05/17 22:00 03/07/17 21:59 02/07/17 22:05 Lisinopril (Zestril) 5 mg DAILY ORAL 02/09/17 09:00 03/11/17 08:59 Morphine Sulfate (Morphine Sulfate) 2 mg Q4H PRN IVP Severe Pain (Pain Scale 7-10) 02/08/17 09:00 02/15/17 08:59 Nitroglycerin (Ntg) 0.4 mg Q5M PRN SL Prn Chest Pain 02/05/17 20:45 03/07/17 20:44 02/07/17 10:09 Ondansetron HCl (Zofran) 4 mg Q6H PRN IVP Nausea & Vomiting 02/06/17 18:30 03/08/17 18:29 02/08/17 12:28 Promethazine HCl/ Codeine (Phenergan with Codeine) 5 ml EVERY 6 HOURS PRN ORAL For Cough 02/06/17 08:15 03/08/17 08:14 DEBORAH JACKSON Feb 08, 2017 12:50
[2017-02-08 15:28] VITALS: BP 162/102
[2017-02-08 17:00] VITALS: BP 139/88
[2017-02-08 20:07] VITALS: BP 116/76
[2017-02-08] MEDS: clonazePAM 0.5mg tab ORAL SCH (21:12)
[2017-02-09] VITALS (7 sets, daily range): BP systolic 105–147; BP diastolic 55–93
[2017-02-09] MEDS: Heparin 5000 units/ml inj SUBQ SCH ×3 (05:48→20:38)
[2017-02-09] MEDS: DuoNeb 0.5-3(2.5)mg/3ml neb HHN SCH ×3 (07:09→18:00)
--- NOTE | 2017-02-09 07:31 | Progress Note ---
DATE: 02/08/2017 CARDIOLOGY PROGRESS NOTE SUBJECTIVE: The patient's defibrillator was interrogated. No further arrhythmias noted. No recent shock. The patient has chest pain with cough. The patient is nauseated and vomiting since, occasionally today. OBJECTIVE: VITAL SIGNS: Blood pressure 122/76, heart rate 58, respiratory rate 18, and afebrile. NECK: Supple. LUNGS: Clear. CARDIAC: Regular rhythm and rate. Normal S1, S2 with a fourth heart sound. ABDOMEN: Soft. No edema. ICD site clean and dry. Echocardiogram reviewed. IMPRESSION: Cardiomyopathy with improved left ventricular systolic function to 50%. Cardiac defibrillator with no events or shocks noted. Stable cardiac rhythm with nonsustained atrial ectopy. Chest pain is musculoskeletal. PLAN: No additional cardiovascular therapy presently indicated. Discharge per primary care physician. Outpatient cardiac followup. Continue current anti-failure regimen. Carlitos Latif M.D. DR: Kameron JOB#: [id number] CC:
[2017-02-09] MEDS ORDERED: Lisinopril 2.5mg tab ORAL SCH (09:00)
[2017-02-09 09:04] LABS: ANION GAP 11 (5-15); CALCIUM 8.8 mg/dL (8.6-10.2); CARBON DIOXIDE 21 mEQ/L (20-30); CHLORIDE 100 mEQ/L (98-107); CREATININE 1.2 mg/dL (0.5-0.9); GLOMERULAR FILTRATION RATE > 60 mL/min (>60); HEMOLYSIS 3; POTASSIUM 4.1 mEQ/L (3.4-4.9); SODIUM 132 mEQ/L (135-145)
[2017-02-09] MEDS: Aspirin EC 81mg tab ORAL SCH (09:27)
[2017-02-09] MEDS: Azithromycin 250mg tab ORAL SCH (09:28)
[2017-02-09] MEDS: Amiodarone 200mg tab ORAL SCH (09:28)
--- NOTE | 2017-02-09 09:37 | Pulmonology Progress Note ---
Assessment/Plan Problems: (1) Chest wall pain (2) AICD (automatic cardioverter/defibrillator) present (3) Asthma (4) Cardiomyopathy (5) Cerebral vascular disease Assessment/Plan ICD interrogated, functioning very well v-paced, with PAC's symptomatic treatment dc home when ok with cardio med/surg for now Subjective ROS Limited/Unobtainable: No Interval Events: persistent chest pain Allergies: Coded Allergies: No Known Allergies (Unverified , 05/15/15) Objective Last 24 Hour Vital Signs Date Time Temp Pulse Resp B/P Pulse Ox O2 Delivery O2 Flow Rate FiO2 02/09/17 09:28 113/65 02/09/17 09:27 75 113/65 02/09/17 07:19 62 16 99 Room Air 02/09/17 07:09 62 16 Room Air 02/09/17 07:09 62 16 98 Room Air 02/09/17 04:35 57 02/09/17 04:18 98.3 65 18 109/70 96 Room Air 02/09/17 00:19 58 02/09/17 00:04 98.5 62 19 105/62 95 Room Air 02/08/17 21:00 58 116/76 02/08/17 20:53 58 02/08/17 20:07 97.3 60 16 116/76 100 Room Air 02/08/17 19:10 64 16 100 Room Air 02/08/17 19:00 60 16 98 Room Air 02/08/17 19:00 60 16 Room Air 02/08/17 17:00 139/88 02/08/17 16:00 54 02/08/17 15:28 96.3 76 18 162/102 100 Room Air 02/08/17 13:20 Room Air 02/08/17 13:20 71 16 98 Room Air 02/08/17 12:00 57 02/08/17 11:21 98.1 58 18 122/76 100 Room Air Intake and Output 02/08/17 02/09/17 19:00 07:00 Intake Total 240 ml Balance 240 ml Intake Oral 240 ml # Voids 3 3 # Bowel Movements 1 1 General Appearance: WD/WN, no acute distress HEENT: normocephalic, atraumatic Respiratory/Chest: chest wall non-tender, lungs clear Cardiovascular: normal peripheral pulses, normal rate Abdomen: normal bowel sounds, soft, non tender, no organomegaly Genitourinary: normal external genitalia Extremities: no cyanosis Skin: no rash Laboratory Tests 02/09/17 08:10: Sodium Level 132L, Potassium Level 4.1, Chloride Level 100, Carbon Dioxide Level 21, Anion Gap 11, Blood Urea Nitrogen 8, Creatinine 1.2H, Estimat Glomerular Filtration Rate > 60, Glucose Level 78, Calcium Level 8.8 Current Medications Medications (Trade) Dose Ordered Sig/Vilma Route PRN Reason Start Time Stop Time Status Last Admin Dose Admin Acetaminophen/ Hydrocodone Bitart ([place] 5/325) 1 tab Q6H PRN ORAL Moderate Pain (Pain Scale 4-6) 02/08/17 09:00 02/15/17 08:59 Albuterol Sulfate (Proventil MDI) 2 puff Q4H PRN INH Shortness of Breath 02/05/17 21:15 03/07/17 21:14 Albuterol/ Ipratropium (DuoNeb 0.5-3(2.5)mg/3ml) 3 ml Q4H PRN HHN Shortness of Breath 02/07/17 13:15 02/12/17 13:14 Albuterol/ Ipratropium (DuoNeb 0.5-3(2.5)mg/3ml) 3 ml TID HHN 02/07/17 18:00 02/12/17 17:59 02/09/17 07:09 Amiodarone HCl (Cordarone) 200 mg DAILY ORAL 02/06/17 09:00 03/08/17 08:59 02/09/17 09:28 Aspirin (Ecotrin) 81 mg DAILY ORAL 02/06/17 09:00 03/08/17 08:59 02/09/17 09:27 Atorvastatin Calcium (Lipitor) 40 mg BEDTIME ORAL 02/08/17 21:00 03/10/17 20:59 02/08/17 21:12 Azithromycin (Zithromax) 500 mg DAILY ORAL 02/06/17 14:30 02/13/17 14:29 02/09/17 09:28 Carvedilol (Coreg) 3.125 mg EVERY 12 HOURS ORAL 02/06/17 09:00 03/08/17 08:59 02/09/17 09:27 Cetylpyridinium Chloride (Cepacol) 1 lozenge Q2H PRN BRI For Cough 02/07/17 14:30 03/09/17 14:29 Clonazepam (KlonoPIN) 0.5 mg QHS ORAL 02/05/17 23:00 02/12/17 22:59 02/08/17 21:12 Gabapentin (Neurontin) 300 mg THREE TIMES A DAY ORAL 02/06/17 09:00 03/08/17 08:59 02/09/17 09:28 Heparin Sodium (Porcine) (Heparin 5000 units/ml) 5,000 units EVERY 8 HOURS SUBQ 02/05/17 22:00 03/07/17 21:59 02/07/17 22:05 Hydralazine HCl (Apresoline) 10 mg Q4H PRN IV SBP>160 mmHg 02/08/17 15:30 03/10/17 15:29 Lisinopril (Zestril) 5 mg DAILY ORAL 02/09/17 09:00 03/11/17 08:59 02/09/17 09:28 Morphine Sulfate (Morphine Sulfate) 2 mg Q4H PRN IVP Severe Pain (Pain Scale 7-10) 02/08/17 09:00 02/15/17 08:59 02/08/17 20:13 Nitroglycerin (Ntg) 0.4 mg Q5M PRN SL Prn Chest Pain 02/05/17 20:45 03/07/17 20:44 02/07/17 10:09 Ondansetron HCl (Zofran) 4 mg Q4H PRN IVP Nausea & Vomiting 02/08/17 15:00 03/10/17 14:59 02/08/17 16:25 Promethazine HCl/ Codeine (Phenergan with Codeine) 5 ml EVERY 6 HOURS PRN ORAL For Cough 02/06/17 08:15 03/08/17 08:14 DEBORAH JACKSON Feb 09, 2017 09:37
[2017-02-09] MEDS ORDERED: Nitroglycerin Subl 0.4mg tab (Bottle Of 25) SL PRN (11:15)
[2017-02-09] MEDS ORDERED: Promethazine/Codeine 5ml UD ORAL PRN (12:00)
--- NOTE | 2017-02-09 12:53 | Internal Med Progress Note ---
Subjective Date of Service: Feb 09, 2017 Physician Name Kathy Campuzano Attending Physician Ángel Almonte MD Current Medications Medications (Trade) Dose Ordered Sig/Vilma Route PRN Reason Start Time Stop Time Status Last Admin Dose Admin Acetaminophen/ Hydrocodone Bitart ([place] 5/325) 1 tab Q6H PRN ORAL Moderate Pain (Pain Scale 4-6) 02/09/17 15:00 02/16/17 14:59 Albuterol Sulfate (Proventil MDI) 2 puff Q4H PRN INH Shortness of Breath 02/09/17 13:15 03/11/17 13:14 Albuterol/ Ipratropium (DuoNeb 0.5-3(2.5)mg/3ml) 3 ml Q4H PRN HHN Shortness of Breath 02/09/17 13:15 02/14/17 13:14 Albuterol/ Ipratropium (DuoNeb 0.5-3(2.5)mg/3ml) 3 ml TID HHN 02/09/17 13:00 02/14/17 12:59 Amiodarone HCl (Cordarone) 200 mg DAILY ORAL 02/10/17 09:00 03/12/17 08:59 Atorvastatin Calcium (Lipitor) 40 mg BEDTIME ORAL 02/09/17 21:00 03/11/17 20:59 Azithromycin (Zithromax) 500 mg DAILY ORAL 02/10/17 09:00 02/13/17 08:59 Carvedilol (Coreg) 3.125 mg EVERY 12 HOURS ORAL 02/09/17 21:00 03/11/17 20:59 Cetylpyridinium Chloride (Cepacol) 1 lozenge Q2H PRN BRI For Cough 02/09/17 12:30 03/11/17 12:29 Clonazepam (KlonoPIN) 0.5 mg QHS ORAL 02/09/17 21:00 02/16/17 20:59 Gabapentin (Neurontin) 300 mg THREE TIMES A DAY ORAL 02/09/17 13:00 03/11/17 12:59 Heparin Sodium (Porcine) (Heparin 5000 units/ml) 5,000 units EVERY 8 HOURS SUBQ 02/09/17 14:00 03/11/17 13:59 Lisinopril (Zestril) 5 mg DAILY ORAL 02/10/17 09:00 03/12/17 08:59 Morphine Sulfate (Morphine Sulfate) 2 mg Q4H PRN IVP Severe Pain (Pain Scale 7-10) 02/09/17 13:00 02/16/17 12:59 Nitroglycerin (Ntg) 0.4 mg Q5M PRN SL Prn Chest Pain 02/09/17 11:15 03/11/17 11:14 Ondansetron HCl (Zofran) 4 mg Q4H PRN IVP Nausea & Vomiting 02/09/17 15:00 03/11/17 14:59 Promethazine HCl/ Codeine (Phenergan with Codeine) 5 ml EVERY 6 HOURS PRN ORAL For Cough 02/09/17 12:00 03/11/17 11:59 Allergies: Coded Allergies: No Known Allergies (Unverified , 05/15/15) ROS Limited/Unobtainable: No Constitutional: Reports: no symptoms HEENT: Reports: no symptoms Cardiovascular: Reports: chest pain Respiratory: Reports: cough Gastrointestinal/Abdominal: Reports: nausea, vomiting Genitourinary: Reports: no symptoms Neurologic/Psychiatric: Reports: no symptoms Subjective 36 YO F admitted with chest pain. Cover for Int Christopher-Dr Almonte. Discharge held yesterday due to nausea & Vomiting. Objective Last Vital Signs Date Time Temp Pulse Resp B/P Pulse Ox O2 Delivery O2 Flow Rate FiO2 02/09/17 11:59 97.5 66 20 117/70 100 Room Air 02/09/17 07:19 21 02/07/17 07:57 3.0 Laboratory Tests Test 02/09/17 08:10 Sodium Level 132 mEQ/L (135-145) L Potassium Level 4.1 mEQ/L (3.4-4.9) Chloride Level 100 mEQ/L (98-107) Carbon Dioxide Level 21 mEQ/L (20-30) Anion Gap 11 (5-15) Blood Urea Nitrogen 8 mg/dL (7-23) Creatinine 1.2 mg/dL (0.5-0.9) H Estimat Glomerular Filtration Rate > 60 mL/min (>60) Glucose Level 78 mg/dL (74-106) Calcium Level 8.8 mg/dL (8.6-10.2) Intake and Output 02/08/17 02/09/17 19:00 07:00 Intake Total 240 ml Balance 240 ml Intake Oral 240 ml # Voids 3 3 # Bowel Movements 1 1 Objective General: alert, cooperative, no distress, appears stated age Head: normocephalic, without obvious abnormality, atraumatic Eyes: conjunctivae/corneas clear. PERRL, EOM's intact Throat: lips, mucosa, and tongue normal. MMM Neck: supple, symmetrical, trachea midline, and no JVD Lungs: clear to auscultation bilaterally Heart: regular rate and rhythm, S1, S2 normal, no murmur, click, rub or gallop Abdomen: soft, non-tender, non-distended, bowel sounds normal; no masses or organomegaly Extremities: extremities normal, atraumatic, no cyanosis or edema Pulses: 2+ and symmetric Skin: skin color, texture, turgor normal; no rashes or lesions Neurologic: Left hemiplegia; grossly normal, no focal deficits Assessment/Plan Problem List: (1) CAD (coronary artery disease) (2) Cough Assessment & Plan: Continue azithromycin (3) Vertigo (4) Cerebral vascular disease (5) HTN (hypertension) Assessment & Plan: Cont Zestril and coreg (6) Asthma Assessment & Plan: See pulmonary note. (7) Left hemiparesis (8) AICD (automatic cardioverter/defibrillator) present (9) Chest pain Assessment & Plan: Pleuritic; see cardiology discussion. Troponin neg; echo LVEF=50% (10) Hemiparesis affecting left side as late effect of cerebrovascular accident (11) Hyponatremia Assessment & Plan: Due to nausea and vomiting. Start IV with norm saline. (12) Nausea & vomiting Assessment & Plan: Resolving; Cont zofran Status: progressing KATHY CAMPUZANO Feb 09, 2017 12:53
[2017-02-09] MEDS ORDERED: Albuterol 90mcg Inhaler 8gm INH PRN (13:15)
[2017-02-09] MEDS ORDERED: DuoNeb 0.5-3(2.5)mg/3ml neb HHN PRN (13:15)
[2017-02-09] MEDS: Morphine Sulfate 2mg/ml Inj IVP PRN ×2 (13:55→15:18)
[2017-02-09] MEDS ORDERED: Norco 5mg/325mg tab ORAL PRN (15:00)
--- NOTE | 2017-02-09 19:30 | Progress Note ---
DATE: 02/09/2017 CARDIOLOGY PROGRESS NOTE SUBJECTIVE: The patient has nausea and vomiting. No chest pain except when she coughs. ICD was interrogated yesterday and functioning appropriately. OBJECTIVE: VITAL SIGNS: Blood pressure 113/65, pulse 62, respirations 16 and no fevers. LUNGS: Clear. CARDIAC: Regular. Normal S1 and S2. There is a fourth heart sound. ABDOMEN: Soft. No edema. IMPRESSION: 1. Cardiomyopathy with improved left ventricular function. 2. Cardiac defibrillator. 3. Cerebrovascular disease with prior stroke and left weakness. 4. Cardiac arrhythmias, suppressed with amiodarone. PLAN: Stable for outpatient followup from cardiac standpoint. Maintain adequate hydration with vomiting. Continue amiodarone and low dose beta-dallin. Titrate angiotensin-converting enzyme inhibitor for rising blood pressure parameters. Carlitos Latif M.D. DR: DARRION JOB#: [id number] CC:
[2017-02-09] MEDS ORDERED: clonazePAM 0.5mg tab ORAL SCH (21:00)
[2017-02-10] VITALS: BP 121/65
[2017-02-10 04:00] VITALS: BP 121/76
[2017-02-10] MEDS: Heparin 5000 units/ml inj SUBQ SCH (05:19)
[2017-02-10 08:00] VITALS: BP 117/66
[2017-02-10] MEDS ORDERED: Azithromycin 250mg tab ORAL SCH (09:00)
[2017-02-10] MEDS: DuoNeb 0.5-3(2.5)mg/3ml neb HHN SCH ×2 (09:00→13:00)
[2017-02-10] MEDS ORDERED: Lisinopril 2.5mg tab ORAL SCH (09:00)
[2017-02-10] MEDS ORDERED: Amiodarone 200mg tab ORAL SCH (09:00)
[2017-02-10] MEDS ORDERED: ZITHROMAX250 MG ORAL (11:59)
[2017-02-10 12:00] VITALS: BP 120/79
--- NOTE | 2017-02-10 12:05 | Internal Med Progress Note ---
Subjective Date of Service: Feb 10, 2017 Physician Name Kathy Campuzano Attending Physician Ángel Almonte MD Current Medications Medications (Trade) Dose Ordered Sig/Vilma Route PRN Reason Start Time Stop Time Status Last Admin Dose Admin Acetaminophen/ Hydrocodone Bitart ([place] 5/325) 1 tab Q6H PRN ORAL Moderate Pain (Pain Scale 4-6) 02/09/17 15:00 02/16/17 14:59 Albuterol Sulfate (Proventil MDI) 2 puff Q4H PRN INH Shortness of Breath 02/09/17 13:15 03/11/17 13:14 Albuterol/ Ipratropium (DuoNeb 0.5-3(2.5)mg/3ml) 3 ml Q4H PRN HHN Shortness of Breath 02/09/17 13:15 02/14/17 13:14 Albuterol/ Ipratropium (DuoNeb 0.5-3(2.5)mg/3ml) 3 ml TID HHN 02/09/17 13:00 02/14/17 12:59 Amiodarone HCl (Cordarone) 200 mg DAILY ORAL 02/10/17 09:00 03/12/17 08:59 02/10/17 09:34 Atorvastatin Calcium (Lipitor) 40 mg BEDTIME ORAL 02/09/17 21:00 03/11/17 20:59 02/09/17 20:30 Azithromycin (Zithromax) 500 mg DAILY ORAL 02/10/17 09:00 02/13/17 08:59 02/10/17 09:34 Carvedilol (Coreg) 3.125 mg EVERY 12 HOURS ORAL 02/09/17 21:00 03/11/17 20:59 02/10/17 09:41 Cetylpyridinium Chloride (Cepacol) 1 lozenge Q2H PRN BRI For Cough 02/09/17 12:30 03/11/17 12:29 Clonazepam (KlonoPIN) 0.5 mg QHS ORAL 02/09/17 21:00 02/16/17 20:59 02/09/17 20:31 Gabapentin (Neurontin) 300 mg THREE TIMES A DAY ORAL 02/09/17 13:00 03/11/17 12:59 02/10/17 09:40 Heparin Sodium (Porcine) (Heparin 5000 units/ml) 5,000 units EVERY 8 HOURS SUBQ 02/09/17 14:00 03/11/17 13:59 Lisinopril (Zestril) 5 mg DAILY ORAL 02/10/17 09:00 03/12/17 08:59 02/10/17 09:36 Morphine Sulfate (Morphine Sulfate) 2 mg Q4H PRN IVP Severe Pain (Pain Scale 7-10) 02/09/17 13:00 02/16/17 12:59 02/09/17 15:18 Nitroglycerin (Ntg) 0.4 mg Q5M PRN SL Prn Chest Pain 02/09/17 11:15 03/11/17 11:14 Ondansetron HCl (Zofran) 4 mg Q4H PRN IVP Nausea & Vomiting 02/09/17 15:00 03/11/17 14:59 02/09/17 13:47 Promethazine HCl/ Codeine 5 ml 5 ml EVERY 6 HOURS PRN ORAL For Cough 02/09/17 12:00 03/11/17 11:59 Sodium Chloride (Sodium Chloride 1000ml bag) 1,000 ml @ 50 mls/hr Q20H IV 02/09/17 14:00 03/11/17 13:59 02/09/17 13:49 Allergies: Coded Allergies: No Known Allergies (Unverified , 05/15/15) ROS Limited/Unobtainable: No Constitutional: Reports: no symptoms HEENT: Reports: no symptoms Cardiovascular: Reports: no symptoms Respiratory: Reports: no symptoms Gastrointestinal/Abdominal: Reports: no symptoms Genitourinary: Reports: no symptoms Subjective 36 YO F admitted with chest pain. Cover for Int Med-Dr Almonte. Await Discharge today Objective Last Vital Signs Date Time Temp Pulse Resp B/P Pulse Ox O2 Delivery O2 Flow Rate FiO2 02/10/17 09:41 59 117/66 02/10/17 08:00 97.3 16 100 Room Air 02/10/17 07:30 21 02/07/17 07:57 3.0 Intake and Output 02/09/17 02/10/17 19:00 07:00 Intake Total 970 ml Balance 970 ml Intake Oral 720 ml IV Total 250 ml # Voids 3 1 # Bowel Movements 1 Objective General: alert, cooperative, no distress, appears stated age Head: normocephalic, without obvious abnormality, atraumatic Eyes: conjunctivae/corneas clear. PERRL, EOM's intact Throat: lips, mucosa, and tongue normal. MMM Neck: supple, symmetrical, trachea midline, and no JVD Lungs: clear to auscultation bilaterally Heart: regular rate and rhythm, S1, S2 normal, no murmur, click, rub or gallop Abdomen: soft, non-tender, non-distended, bowel sounds normal; no masses or organomegaly Extremities: extremities normal, atraumatic, no cyanosis or edema Pulses: 2+ and symmetric Skin: skin color, texture, turgor normal; no rashes or lesions Neurologic: Left hemiplegia; grossly normal, no focal deficits Assessment/Plan Problem List: (1) CAD (coronary artery disease) (2) Cough Assessment & Plan: Continue azithromycin (3) Vertigo (4) Cerebral vascular disease (5) HTN (hypertension) Assessment & Plan: Cont Zestril and coreg (6) Asthma Assessment & Plan: See pulmonary note. (7) Left hemiparesis (8) AICD (automatic cardioverter/defibrillator) present (9) Chest pain Assessment & Plan: Pleuritic; see cardiology discussion. Troponin neg; echo LVEF=50% (10) Hemiparesis affecting left side as late effect of cerebrovascular accident (11) Hyponatremia Assessment & Plan: Due to nausea and vomiting. Start IV with norm saline. (12) Nausea & vomiting Assessment & Plan: Resolving; Cont zofran Status: stable Assessment/Plan Discharge home today. KATHY CAMPUZANO Feb 10, 2017 12:05
[2017-02-10] MEDS: Morphine Sulfate 2mg/ml Inj IVP PRN (12:59)
--- NOTE | 2017-02-10 17:26 | Pulmonology Progress Note ---
Assessment/Plan Problems: (1) Chest wall pain (2) AICD (automatic cardioverter/defibrillator) present (3) Asthma (4) Cardiomyopathy (5) Cerebral vascular disease Assessment/Plan no new complains v-paced, with PAC's symptomatic treatment dc home when ok with cardio med/surg for now Subjective ROS Limited/Unobtainable: No Interval Events: less pain Allergies: Coded Allergies: No Known Allergies (Unverified , 05/15/15) Objective Last 24 Hour Vital Signs Date Time Temp Pulse Resp B/P Pulse Ox O2 Delivery O2 Flow Rate FiO2 02/10/17 13:11 Room Air 02/10/17 13:10 Room Air 02/10/17 12:00 97.3 66 17 120/79 99 Room Air 02/10/17 09:41 59 117/66 02/10/17 09:37 62 02/10/17 09:36 117/66 02/10/17 08:00 97.3 59 16 117/66 100 Room Air 02/10/17 07:30 Room Air 02/10/17 07:30 61 16 Room Air 21 02/10/17 07:30 Room Air 02/10/17 04:00 97.0 60 16 121/76 100 Room Air 02/10/17 00:00 97.3 56 18 121/65 97 Room Air 02/09/17 20:38 60 115/75 02/09/17 20:19 Room Air 02/09/17 20:19 Room Air 02/09/17 20:00 97.7 60 18 115/75 98 Room Air 02/09/17 19:15 64 16 Room Air 21 Intake and Output 02/09/17 02/10/17 19:00 07:00 Intake Total 970 ml Balance 970 ml Intake Oral 720 ml IV Total 250 ml # Voids 3 1 # Bowel Movements 1 General Appearance: WD/WN HEENT: normocephalic, atraumatic Respiratory/Chest: chest wall non-tender, lungs clear Breasts: no masses Cardiovascular: normal peripheral pulses, normal rate Abdomen: normal bowel sounds, soft, non tender Genitourinary: normal external genitalia Extremities: no cyanosis Skin: no ulcers 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
--- NOTE | 2017-02-10 22:00 | Progress Note ---
DATE: 02/10/2017 CARDIOLOGY PROGRESS NOTE SUBJECTIVE: No nausea or vomiting. No shortness of breath. Chest pain with cough only. Monitored rhythm sinus with pacing by demand. OBJECTIVE: VITAL SIGNS: Blood pressure 117/66, pulse 60, and respiratory rate 16. NECK: Supple. LUNGS: Clear. Jugular venous pressure normal. CARDIAC: Regular rhythm and rate. Normal S1 and S2 with a fourth heart sound. ABDOMEN: Soft and nontender. EXTREMITIES: Without edema. Left hemiparesis is noted. IMPRESSION: 1. Cardiomyopathy with improved left ventricular systolic function. 2. No clinical signs of acute congestive heart failure. 3. Chest pain is pleuritic, carotid and ischemic. 4. Cardiac defibrillator has appropriate function and no recent shock. 5. Cerebrovascular accident due to arrhythmias now suppressed with amiodarone. 6. Residual left-sided weakness due to above. PLAN: 1. No additional cardiovascular workup at this time. 2. Maintain current antiarrhythmics and anti-failure regimen. 3. 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 Carlitos Latif M.D. DR: EZRA JOB#: [id number] CC:
--- NOTE | 2017-02-11 16:21 | Discharge Summary ---
Discharge Summary Hospital Course Date of Admission Feb 05, 2017 at 20:25 Date of Discharge Feb 10, 2017 at 15:10 Admitting Diagnosis CHEST PAIN, ACS HPI Ruthy Olmos is a 36 year old female who was admitted on Feb 05, 2017 at 20: 25 for Chest Pain; Acute Coronary Syndrome Hospital Course [id number] Discharge Discharge Disposition Patient was discharged to Home (01) Discharge Diagnoses: Becky Leal NP Feb 11, 2017 16:21
--- NOTE | 2017-02-11 21:15 | Discharge Summary 2 SIG ---
DATE OF ADMISSION: 02/05/2017 DATE OF DISCHARGE: 02/10/2017 CONSULTANTS: 1. Arlene Vallecillo M.D. 2. Carlitos Latif M.D. BRIEF HOSPITAL COURSE: The patient is a 36-year-old female, who presented to the ED complaining of chest pain that began three days prior to admission, not localized to the substernal region or to the left shoulder. The patient denies radiation and complains of dizziness and cough, which is productive of white greenish sputum. On evaluation at ED, EKG showed sinus rhythm with a rate of [address] changes. There was noted some prolongation of QT interval and nonspecific T-wave changes. She was given aspirin. Chest x-ray showed no consolidation, no effusion, no pneumothorax, and no acute cardiopulmonary disease. She was admitted to telemetry for evaluation of acute coronary syndrome and possible bronchitis. She has cough and vertigo. She underwent pulmonary and cardiac evaluation. She had a known history of hypertensive and ischemic heart disease, who had an myocardial infarction back in 2011. She has a history of paroxysmal atrial fibrillation with apparent cardioembolic stroke resulting in left-sided hemiparesis. She has a [place] cardiac defibrillator and denied any shocks from the device. Cardiac monitoring was done. She was continued on amiodarone, Lipitor and aspirin. Echocardiogram done showed ejection fraction 50%. Lipid panel was checked. Lipitor was increased to 40 mg daily. She was continued on lisinopril and carvedilol. She had elevated liver transaminases. Abdominal ultrasound was negative with borderline small kidneys. Hepatitis panel was negative. She was initially planned for discharge on 02/08/2017, however discharge was held, due to nausea and vomiting. She was given IV saline and Zofran. Symptoms resolved and the patient was eventually discharged home. Troponins were negative. FINAL DIAGNOSES: 1. Coronary artery disease. 2. Cough. 3. Cardiomyopathy. 4. Pleuritic chest pain. 5. Cardiac defibrillator with appropriate function and no recent shock. 6. Old Cerebrovascular accident. 7. Cerebrovascular accident with residual left-sided hemiparesis. 8. Chest wall pain/costochondritis. 9. Asthma. 10. Hypertension. 11. Hyponatremia. 12. Elevated liver transaminases. Kiran Avila M.D. I have been assigned to dictate discharge summary on this account and I was not involved in the patient's management. Becky Leal N.P. DR: ADALI JOB#: [id number] CC: KELLI
== END 2017-02-10 15:10 | disposition home or self-care (01) | DRG 315 ==
LOC: EDBD 17:32 → EDBEDREQ 18:03 → EMR 18:12 → EDBEDREQ 20:05 → 2E 20:25 → 3E 02-09 10:55
DX: I42.9 Cardiomyopathy, unspecified (principal); E87.1 Hypo-osmolality and hyponatremia; I11.9 Hypertensive heart disease without heart failure; I69.954 Hemiplegia and hemiparesis following unspecified cerebrovascular disease affecting left non-dominant side; M94.0 Chondrocostal junction syndrome [Tietze]; I25.2 Old myocardial infarction; I48.0 Paroxysmal atrial fibrillation; J45.909 Unspecified asthma, uncomplicated; Z95.810 Presence of automatic (implantable) cardiac defibrillator; M21.372 Foot drop, left foot; I25.10 Atherosclerotic heart disease of native coronary artery without angina pectoris
CPT/HCPCS: 36415; 71010; 76700; 80048; 80053; 80061; 82248; 82550; 82553; 83880; 84439; 84443; 84481; 84484; 85007; 85025; 85379; 86705; 86709; 86803; 87340; 93005; 93306; 94640; 94664; J2405; J7620

== ENCOUNTER 2017-06-02 16:10 | Inpatient (IN) | payer MEDICARE, OTHER ==
[~2017-06-02] VITALS: Ht 152.4 cm; Wt 53.1 kg
[~2017-06-02 16:10] MED LIST changes: +ZITHROMAX250 MG ORAL
[2017-06-02 16:30] VITALS: BP 146/97
--- NOTE | 2017-06-02 16:34 | Emergency Room Report ---
History of Present Illness General Chief Complaint: Pain Source: Patient, Medical Record, EMS Present Illness HPI 37-year-old female history of apparent LA 2011, has an ICD, also CVA with left- sided hemiparesis, p/w chest pain for 1 day. Chest pain started while at rest. Localized to substernal area, no radiation to back or other areas, sharp in nature, gradual in onset, lasted a few hours, multiple intermittent episodes. Also complaining of SOB. Denies palpitations, diaphoresis, n/v. No history of DVT or PE, patient has hemiparesis but states that she is able to still walk with a walker, no recent immobilizations or surgeries. Denies fever, chills, cough, abd pain. Denies trauma. Patient cannot recall the last stress test or angiogram she has had. Allergies: Coded Allergies: No Known Allergies (Unverified , 05/15/15) Patient History Past Medical History: see triage record Past Surgical History: none Pertinent Family History: none Reviewed Nursing Documentation: PMH: Agreed, PSxH: Agreed Nursing Documentation-PMH Past Medical History: No History, Except For Hx Cardiac Problems: Yes - LA Hx Hypertension: Yes Hx Pacemaker: Yes - LEFT Hx Asthma: Yes Hx Diabetes: Yes Hx Cancer: No Hx Gastrointestinal Problems: No Hx Neurological Problems: Yes - thyroid, Arthrtis Hx Cerebrovascular Accident: Yes Hx Seizures: Yes Hx Weakness: Yes - L side Review of Systems All Other Systems: negative except mentioned in HPI Physical Exam Vital Signs Date Time Temp Pulse Resp B/P (MAP) Pulse Ox O2 Delivery O2 Flow Rate FiO2 06/02/17 16:04 98.6 93 20 163/86 98 Room Air Sp02 EP Interpretation: reviewed, normal General Appearance: alert, GCS 15, non-toxic, moderate distress Head: normocephalic, atraumatic Eyes: bilateral eye normal inspection, bilateral eye PERRL, bilateral eye EOMI ENT: normal ENT inspection, normal pharynx, normal voice, moist mucus membranes Neck: normal inspection, full range of motion, supple Respiratory: normal inspection, lungs clear, normal breath sounds, no respiratory distress, no retraction, no wheezing, speaking full sentences, chest symmetrical Cardiovascular #1: normal inspection, regular rate, rhythm, no edema, normal capillary refill Cardiovascular #2: 2+ radial (R), 2+ radial (L) Gastrointestinal: normal inspection, non tender, soft, non-distended, no guarding Musculoskeletal: normal inspection, back normal, normal range of motion, non- tender Neurologic: alert, oriented x3, responsive, sensory intact, other - L sided hemiparesis Psychiatric: normal inspection, judgement/insight normal, memory normal Skin: normal inspection, normal color, no rash, warm/dry, well hydrated, normal turgor Medical Decision Making Diagnostic Impression: Primary Impression: Chest pain Additional Impression: ACS (acute coronary syndrome) ER Course 37-year-old female with chest pain DDX: ACS vs. CHF vs. pneumonia vs. gastritis/GERD vs. pneumothorax Plan: IV access, obtain labs including troponin, EKG, CXR ASA ER course: Patient was treated with ASA. Patient has remained on a monitor, HD stable trop positive x 2, however not increasing still in pain Disposition: Patient requires admission for chest pain. Due to patient's history and comorbidities, patient has increased risk of acute cardiac event. Patient requires admission for further workup, serial troponin, and possible stress test/cath inpatient. D/W hospitalist Dr wang Please note that this Emergency Department Report was dictated using [employer] final assembly conveyor line technology software, occasionally this can lead to erroneous entry secondary to interpretation by the dictation equipment. EKG Diagnostic Results EP Interpretation: Yes Rate: normal Rhythm: NSR ST Segments: T wave flattening in the lateral leads ASA given to patient: Y. Rhythm Strip EP Interpretation: Yes Rate: 59 Rhythm: NSR, no PVCs, no ectopy Chest X-ray CXR: Ordered: Yes 1 view Indication: Chest pain EP interpretation: Yes Interpretation: Pacemaker noted in the left chest, no effusion, no pneumothorax , no acute cardiopulmonary disease Impression: No acute disease Electronically signed by Raymon Bernal MD Laboratory Tests Test 06/02/17 17:37 06/02/17 19:30 White Blood Count 5.8 K/UL (4.8-10.8) Red Blood Count 3.92 M/UL (4.20-5.40) L Hemoglobin 10.8 G/DL (12.0-16.0) L Hematocrit 36.5 % (37.0-47.0) L Mean Corpuscular Volume 93 FL (80-99) Mean Corpuscular Hemoglobin 27.5 PG (27.0-31.0) Mean Corpuscular Hemoglobin Concent 29.7 G/DL (32.0-36.0) L Red Cell Distribution Width 13.2 % (11.6-14.8) Platelet Count 143 K/UL (150-450) L Mean Platelet Volume 10.2 FL (6.5-10.1) H Neutrophils (%) (Auto) % (45.0-75.0) Lymphocytes (%) (Auto) % (20.0-45.0) Monocytes (%) (Auto) % (1.0-10.0) Eosinophils (%) (Auto) % (0.0-3.0) Basophils (%) (Auto) % (0.0-2.0) Differential Total Cells Counted 100 Neutrophils % (Manual) 53 % (45-75) Lymphocytes % (Manual) 37 % (20-45) Monocytes % (Manual) 8 % (1-10) Eosinophils % (Manual) 2 % (0-3) Basophils % (Manual) 0 % (0-2) Band Neutrophils 0 % (0-8) Nucleated Red Blood Cells 1 /100 WBC Platelet Estimate Decreased L Platelet Morphology Normal Clumped Platelets 2+ Red Blood Cell Morphology Normal Sodium Level 140 MMOL/L (136-145) Potassium Level 4.2 MMOL/L (3.5-5.1) Chloride Level 108 MMOL/L (98-107) H Carbon Dioxide Level 22 MMOL/L (21-32) Anion Gap 10 mmol/L (5-15) Blood Urea Nitrogen 9 mg/dL (7-18) Creatinine 1.5 MG/DL (0.55-1.30) H Estimate Glomerular Filtration Rate 47.4 mL/min (>60) Glucose Level 72 MG/DL (74-106) L Calcium Level 9.0 MG/DL (8.5-10.1) Total Bilirubin 0.6 MG/DL (0.2-1.0) Aspartate Amino Transferase (AST) 125 U/L (15-37) H Alanine Aminotransferase (ALT) 136 U/L (12-78) H Alkaline Phosphatase 40 U/L (46-116) L Total Creatine Kinase 121 U/L (26-308) Creatine Kinase MB 0.9 NG/ML (0.0-3.6) Creatine Kinase MB Relative Index 0.7 Troponin I 0.082 ng/mL (0.000-0.056) 0.082 ng/mL (0.000-0.056) Pro-B-Type Natriuretic Peptide 214 pg/mL (0-125) H Total Protein 7.0 G/DL (6.4-8.2) Albumin 3.2 G/DL (3.4-5.0) L Globulin 3.8 g/dL Albumin/Globulin Ratio 0.8 (1.0-2.7) L Prothrombin Time 11.4 SEC (9.30-11.50) Prothrombin Time INR 1.1 (0.9-1.1) PTT 24 SEC (23-33) Last Vital Signs Date Time Temp Pulse Resp B/P (MAP) Pulse Ox O2 Delivery O2 Flow Rate FiO2 06/02/17 16:04 98.6 93 20 163/86 98 Room Air Disposition: ADMITTED INPATIENT Condition: Raymon Martines M.D. Jun 02, 2017 16:34
[2017-06-02 17:30] VITALS: BP 155/74
[2017-06-02 17:54] LABS: HEMATOCRIT 36.5 % (37.0-47.0); HEMOGLOBIN 10.8 G/DL (12.0-16.0); MEAN CORPUSCULAR VOLUME 93 FL (80-99); RED BLOOD COUNT 3.92 M/UL (4.20-5.40); RED CELL DISTRIBUTION WIDTH 13.2 % (11.6-14.8); WHITE BLOOD COUNT 5.8 K/UL (4.8-10.8)
[2017-06-02] MEDS ORDERED: FUROSEMIDE20 M1 ORAL (18:12)
[2017-06-02] MEDS ORDERED: GABAPENTIN100 MG ORAL (18:12)
[2017-06-02] MEDS ORDERED: Morphine Sulfate 4mg/ml Inj IVP ONE (18:30)
[2017-06-02 18:36] LABS: ALANINE AMINOTRANSFERASE 136 U/L (12-78); ALBUMIN 3.2 G/DL (3.4-5.0); ALBUMIN/GLOBULIN RATIO 0.8 (1.0-2.7); ALKALINE PHOSPHATASE 40 U/L (46-116); ANION GAP 10 mmol/L (5-15); ASPARTATE AMINO TRANSFERASE 125 U/L (15-37); BILIRUBIN,TOTAL 0.6 MG/DL (0.2-1.0); BLOOD UREA NITROGEN 9 mg/dL (7-18); CARBON DIOXIDE 22 MMOL/L (21-32); CHLORIDE 108 MMOL/L (98-107); CKMB 0.9 NG/ML (0.0-3.6); CREATINE KINASE 121 U/L (26-308); CREATININE 1.5 MG/DL (0.55-1.30); POTASSIUM 4.2 MMOL/L (3.5-5.1); SODIUM 140 MMOL/L (136-145)
[2017-06-02 18:56] LABS: PLATELET COUNT 143 K/UL (150-450)
[2017-06-02 19:00] VITALS: BP 127/76
[2017-06-02] MEDS ORDERED: Heparin 5000 units/ml inj IV ONE (19:45)
[2017-06-02] MEDS ORDERED: Heparin 25,000u/D5W 500ml 500 ML IV SCH (19:45)
[2017-06-02 20:08] LABS: INR 1.1 (0.9-1.1)
[2017-06-02 21:00] VITALS: BP 134/76
[2017-06-02] MEDS ORDERED: Morphine Sulfate 2mg/ml Inj IVP PRN (21:15)
[2017-06-02] MEDS ORDERED: Miralax 17gm pkt ORAL PRN (21:15)
[2017-06-02] MEDS ORDERED: dilTIAZem HCl 25mg/5ml Inj IV PRN (21:15)
[2017-06-02] MEDS ORDERED: Nitroglycerin Subl 0.4mg tab SL PRN (21:15)
[2017-06-02] MEDS ORDERED: Enalaprilat 2.5mg/2ml Inj IV PRN (21:15)
[2017-06-02] MEDS ORDERED: Albuterol/Ipratropium 3ml neb HHN PRN (21:15)
[2017-06-02 22:00] VITALS: BP 138/77
[2017-06-02] MEDS ORDERED: Heparin 5000 units/ml inj SUBQ SCH (22:00)
[2017-06-02] MEDS: clonazePAM 0.5mg tab ORAL SCH (23:25)
[2017-06-03] VITALS: BP 110/42
[2017-06-03 02:40] LABS: BASOPHILS % (AUTO) 1.2 % (0.0-2.0); EOSINOPHILS % (AUTO) 0.5 % (0.0-3.0); HEMATOCRIT 33.5 % (37.0-47.0); HEMOGLOBIN 10.4 G/DL (12.0-16.0); MEAN CORPUSCULAR VOLUME 92 FL (80-99); MONOCYTES % (AUTO) 6.8 % (1.0-10.0); NEUTROPHILS % (AUTO) 43.5 % (45.0-75.0); PLATELET COUNT 155 K/UL (150-450); RED BLOOD COUNT 3.63 M/UL (4.20-5.40); RED CELL DISTRIBUTION WIDTH 12.8 % (11.6-14.8); WHITE BLOOD COUNT 4.3 K/UL (4.8-10.8)
[2017-06-03 02:50] LABS: INR 1.1 (0.9-1.1)
[2017-06-03 03:14] LABS: CHOLESTEROL 228 MG/DL (< 200); HDL CHOLESTEROL 67 MG/DL (40-60); TRIGLYCERIDES 49 MG/DL (0-200)
[2017-06-03] MEDS ORDERED: Heparin 5000 units/ml inj IV ONE ×2 (03:15→11:15)
[2017-06-03] MEDS ORDERED: Heparin 25,000u/D5W 500ml 500 ML IV SCH (03:15)
[2017-06-03 04:00] VITALS: BP 100/71
[2017-06-03] MEDS: NovoLOG Insulin Flexpen SUBQ SCH ×4 (06:21→21:44)
[2017-06-03 08:00] VITALS: BP 95/58
[2017-06-03] MEDS: Aspirin Baby 81mg ORAL SCH (08:42)
[2017-06-03] MEDS: Amiodarone 200mg tab ORAL SCH (08:43)
--- NOTE | 2017-06-03 10:18 | Diagnostic Imaging Report ---
Indication: Chest pain Technique: One view of the chest Comparison: none Findings: Lungs and pleural spaces are clear. Heart size is normal. Left chest unifocal AICD again noted Impression: No acute process
--- NOTE | 2017-06-03 10:45 | Diagnostic Imaging Report ---
APPROVED REPORT CPT Code: 09039 BILATERAL: Imaging reveals a patent deep venous system bilaterally. There is no evidence of thrombus within the femoral, popliteal or tibial segments. The greater saphenous veins are also within normal limits. Doppler indicates normal spontaneous flow within these segments.
--- NOTE | 2017-06-03 10:45 | Diagnostic Imaging Report ---
APPROVED REPORT CPT Code: 19193 BILATERAL: Imaging reveals a patent deep venous system bilaterally. There is no evidence of thrombus within the femoral, popliteal or tibial segments. The greater saphenous veins are also within normal limits. Doppler indicates normal spontaneous flow within these segments.
--- NOTE | 2017-06-03 10:45 | Diagnostic Imaging Report ---
APPROVED REPORT CPT Code: 28320 BILATERAL: Imaging reveals a patent deep venous system bilaterally. There is no evidence of thrombus within the femoral, popliteal or tibial segments. The greater saphenous veins are also within normal limits. Doppler indicates normal spontaneous flow within these segments.
[2017-06-03] MEDS ORDERED: Heparin 25,000 units/D5W 500ml (ACS/MI) IV SCH ×2 (11:15→19:30)
[2017-06-03 12:04] VITALS: BP 109/65
--- NOTE | 2017-06-03 13:13 | Consultation ---
History of Present Illness General Date patient seen: Jun 03, 2017 Chief Complaint: Pain Reason for Consultation: inpatient management Present Illness HPI 37-year-old female with pmhx of IA 2012, ICD, CVA with left-sided hemiparesis, p/w chest pain for 1 day started while at rest. Also complaining of SOB. Denies palpitations, diaphoresis, n/v. she is admitted to telemetry for further evaluation. Allergies: Coded Allergies: No Known Allergies (Unverified , 05/15/15) Medication History Scheduled Albuterol Sulfate* (Albuterol Sulfate*), 2 MG PO QID, (Reported) Amiodarone Hcl* (Cordarone*), 200 MG ORAL DAILY Aspirin Ec* (Aspirin Ec*), 81 MG ORAL DAILY, (Reported) Atorvastatin Calcium* (Atorvastatin Calcium*), 20 MG ORAL BEDTIME, (Reported) Azithromycin* (Zithromax*), 500 MG ORAL DAILY Carvedilol* (Carvedilol*), 3.125 MG ORAL EVERY 12 HOURS, (Reported) Clonazepam* (Klonopin*), 0.5 MG ORAL BEDTIME, (Reported) Furosemide* (Lasix*), Unknown Dose ORAL DAILY, (Reported) Gabapentin* (Gabapentin*), 300 MG ORAL THREE TIMES A DAY, (Reported) Gabapentin* (Gabapentin*), Unknown Dose ORAL THREE TIMES A DAY, (Reported) Lisinopril (Lisinopril*), 5 MG ORAL DAILY, (Reported) Patient History Healthcare decision maker Resuscitation status Full Code Advanced Directive on File No Past Medical/Surgical History Past Medical/Surgical History: (1) Hemiparesis affecting left side as late effect of cerebrovascular accident (2) CAD (coronary artery disease) (3) Cardiomyopathy (4) Asthma (5) HTN (hypertension) (6) Cerebral vascular disease Review of Systems Constitutional: Reports: no symptoms Eye: Reports: no symptoms ENT: Reports: no symptoms Respiratory: Reports: no symptoms Cardiovascular: Reports: chest pain Physical Exam General Appearance: WD/WN, alert Lines, tubes and drains: peripheral HEENT: normocephalic, atraumatic Neck: non-tender, normal alignment Respiratory/Chest: chest wall non-tender, lungs clear, normal breath sounds Cardiovascular/Chest: normal peripheral pulses, normal rate Abdomen: normal bowel sounds, non tender Genitourinary/Rectal: normal genital exam, normal rectal exam Extremities: normal range of motion, non-tender Last 24 Hour Vital Signs Date Time Temp Pulse Resp B/P (MAP) Pulse Ox O2 Delivery O2 Flow Rate FiO2 06/03/17 12:04 98.2 58 18 109/65 98 Room Air 06/03/17 08:44 62 110/42 06/03/17 08:00 76 06/03/17 08:00 97.9 61 18 95/58 98 Room Air 06/03/17 04:00 97.7 60 100/71 100 Room Air 06/03/17 04:00 56 06/03/17 00:00 58 06/03/17 00:00 97.0 62 18 110/42 100 Room Air 06/02/17 22:00 98.7 61 18 134/76 100 Room Air 100 06/02/17 22:00 97.9 60 18 138/77 100 Room Air 06/02/17 21:00 98.7 61 18 134/76 100 Room Air 06/02/17 19:00 64 20 127/76 100 Room Air 100 06/02/17 19:00 98.7 64 20 127/76 100 Room Air 100 06/02/17 17:30 58 23 155/74 100 Room Air 100 06/02/17 16:30 60 16 Room Air 100 06/02/17 16:30 98.7 74 16 146/97 100 Room Air 06/02/17 16:04 98.6 93 20 163/86 98 Room Air Intake and Output 06/03/17 06/04/17 19:00 07:00 Intake Total 78.502 ml Balance 78.502 ml IV Total 78.502 ml Laboratory Tests Test 06/02/17 17:37 06/02/17 19:30 06/02/17 21:25 06/03/17 02:15 White Blood Count 5.8 K/UL (4.8-10.8) 4.3 K/UL (4.8-10.8) L Red Blood Count 3.92 M/UL (4.20-5.40) L 3.63 M/UL (4.20-5.40) L Hemoglobin 10.8 G/DL (12.0-16.0) L 10.4 G/DL (12.0-16.0) L Hematocrit 36.5 % (37.0-47.0) L 33.5 % (37.0-47.0) L Mean Corpuscular Volume 93 FL (80-99) 92 FL (80-99) Mean Corpuscular Hemoglobin 27.5 PG (27.0-31.0) 28.7 PG (27.0-31.0) Mean Corpuscular Hemoglobin Concent 29.7 G/DL (32.0-36.0) L 31.2 G/DL (32.0-36.0) L Red Cell Distribution Width 13.2 % (11.6-14.8) 12.8 % (11.6-14.8) Platelet Count 143 K/UL (150-450) L 155 K/UL (150-450) Mean Platelet Volume 10.2 FL (6.5-10.1) H 7.1 FL (6.5-10.1) Neutrophils (%) (Auto) % (45.0-75.0) 43.5 % (45.0-75.0) L Lymphocytes (%) (Auto) % (20.0-45.0) 48.0 % (20.0-45.0) H Monocytes (%) (Auto) % (1.0-10.0) 6.8 % (1.0-10.0) Eosinophils (%) (Auto) % (0.0-3.0) 0.5 % (0.0-3.0) Basophils (%) (Auto) % (0.0-2.0) 1.2 % (0.0-2.0) Differential Total Cells Counted 100 Neutrophils % (Manual) 53 % (45-75) Lymphocytes % (Manual) 37 % (20-45) Monocytes % (Manual) 8 % (1-10) Eosinophils % (Manual) 2 % (0-3) Basophils % (Manual) 0 % (0-2) Band Neutrophils 0 % (0-8) Nucleated Red Blood Cells 1 /100 WBC Platelet Estimate Decreased L Platelet Morphology Normal Clumped Platelets 2+ Red Blood Cell Morphology Normal Sodium Level 140 MMOL/L (136-145) Potassium Level 4.2 MMOL/L (3.5-5.1) Chloride Level 108 MMOL/L (98-107) H Carbon Dioxide Level 22 MMOL/L (21-32) Anion Gap 10 mmol/L (5-15) Blood Urea Nitrogen 9 mg/dL (7-18) Creatinine 1.5 MG/DL (0.55-1.30) H Estimat Glomerular Filtration Rate 47.4 mL/min (>60) Glucose Level 72 MG/DL (74-106) L Calcium Level 9.0 MG/DL (8.5-10.1) Total Bilirubin 0.6 MG/DL (0.2-1.0) Aspartate Amino Transf (AST/SGOT) 125 U/L (15-37) H Alanine Aminotransferase (ALT/SGPT) 136 U/L (12-78) H Alkaline Phosphatase 40 U/L (46-116) L Total Creatine Kinase 121 U/L (26-308) Creatine Kinase MB 0.9 NG/ML (0.0-3.6) Creatine Kinase MB Relative Index 0.7 Troponin I 0.082 ng/mL (0.000-0.056) 0.082 ng/mL (0.000-0.056) 0.085 ng/mL (0.000-0.056) Pro-B-Type Natriuretic Peptide 214 pg/mL (0-125) H Total Protein 7.0 G/DL (6.4-8.2) Albumin 3.2 G/DL (3.4-5.0) L Globulin 3.8 g/dL Albumin/Globulin Ratio 0.8 (1.0-2.7) L Prothrombin Time 11.4 SEC (9.30-11.50) 11.8 SEC (9.30-11.50) H Prothromb Time International Ratio 1.1 (0.9-1.1) 1.1 (0.9-1.1) Activated Partial Thromboplast Time 24 SEC (23-33) 39 SEC (23-33) H Urine Opiates Screen Positive (NEGATIVE) H Urine Barbiturates Screen Negative (NEGATIVE) Phencyclidine (PCP) Screen Negative (NEGATIVE) Urine Amphetamines Screen Negative (NEGATIVE) Urine Benzodiazepines Screen Negative (NEGATIVE) Urine Cocaine Screen Negative (NEGATIVE) Urine Marijuana (THC) Screen Negative (NEGATIVE) C-Reactive Protein, Quantitative < 0.4 mg/dL (0.00-0.90) Triglycerides Level 49 MG/DL (0-200) Cholesterol Level 228 MG/DL (< 200) H LDL Cholesterol 148 mg/dL (<100) H HDL Cholesterol 67 MG/DL (40-60) H Cholesterol/HDL Ratio 3.4 (3.3-4.4) Thyroid Stimulating Hormone (TSH) 0.354 uiU/mL (0.360-3.740) Test 06/03/17 09:15 Activated Partial Thromboplast Time 39 SEC (23-33) H Height (Feet): 5 Height (Inches): 1.00 Weight (Pounds): 117 Medications Current Medications Medications (Trade) Dose Ordered Sig/Vilma Route PRN Reason Start Time Stop Time Status Last Admin Dose Admin Acetaminophen (Tylenol) 650 mg Q4H PRN ORAL FEVER 06/02/17 21:15 07/02/17 21:14 Albuterol/ Ipratropium (Albuterol/ Ipratropium) 3 ml Q4H PRN HHN Shortness of Breath 06/02/17 21:15 06/07/17 21:14 Amiodarone HCl (Cordarone) 200 mg DAILY ORAL 06/03/17 09:00 07/03/17 08:59 Aspirin (ASA) 162 mg DAILY ORAL 06/03/17 09:00 07/03/17 08:59 06/03/17 08:42 Carvedilol (Coreg) 3.125 mg EVERY 12 HOURS ORAL 06/03/17 09:00 07/03/17 08:59 Clonazepam (KlonoPIN) 0.5 mg BEDTIME ORAL 06/02/17 22:00 06/09/17 21:59 06/02/17 23:25 Dextrose (Dextrose 50%) STAT PRN IV Hypoglycemia 06/02/17 21:15 07/02/17 21:14 Diltiazem HCl (Cardizem) 10 mg Q1H PRN IV heart rate more than 120, 06/02/17 21:15 07/02/17 21:14 Enalaprilat (Vasotec) 2.5 mg Q6H PRN IV sbp more than 160 06/02/17 21:15 07/02/17 21:14 Gabapentin (Neurontin) 300 mg THREE TIMES A DAY ORAL 06/03/17 09:00 07/03/17 08:59 06/03/17 12:57 Heparin Sodium/ Dextrose 500 ml @ 21.228 mls/ hr Q24H IV 06/03/17 11:15 07/03/17 11:14 06/03/17 11:12 Insulin Aspart (NovoLOG) BEFORE MEALS AND HS SUBQ 06/03/17 06:30 07/03/17 06:29 Ketorolac Tromethamine (Toradol 30mg) 30 mg Q6H PRN IV moderate pain ( 4-6) 06/02/17 21:15 06/07/17 21:14 Morphine Sulfate (Morphine Sulfate) 2 mg Q4H PRN IVP severe Pain (Pain Scale 7-10) 06/02/17 21:15 06/09/17 21:14 06/03/17 03:57 Nitroglycerin (Ntg) 0.4 mg Every 5 Minutes PRN SL Prn Chest Pain 06/02/17 21:15 07/02/17 21:14 Ondansetron HCl (Zofran) 4 mg Q6H PRN IVP Nausea & Vomiting 06/02/17 21:15 07/02/17 21:14 Pantoprazole (Protonix) 40 mg DAILY ORAL 06/03/17 09:00 07/03/17 08:59 06/03/17 08:42 Polyethylene Glycol (Miralax) 17 gm DAILYPRN PRN ORAL Constipation 06/02/17 21:15 07/02/17 21:14 Temazepam (Restoril) 15 mg HSPRN PRN ORAL Insomnia 06/02/17 21:15 06/09/17 21:14 Assessment/Plan Problem List: (1) ACS (acute coronary syndrome) ICD Codes: I24.9 - Acute ischemic heart disease, unspecified SNOMED: 212463700 (2) Cardiomyopathy ICD Codes: I42.9 - Cardiomyopathy, unspecified SNOMED: 09136001 (3) AICD (automatic cardioverter/defibrillator) present ICD Codes: Z95.810 - Presence of automatic (implantable) cardiac defibrillator SNOMED: 89530262, 788098804 (4) HTN (hypertension) ICD Codes: I10 - Essential (primary) hypertension SNOMED: 64451566 (5) Cerebral vascular disease ICD Codes: I67.9 - Cerebrovascular disease, unspecified SNOMED: 38337436 Assessment/Plan serial ekg, troponin echo cardiology to see. check ICD DEBORAH JACKSON Jun 03, 2017 13:13
--- NOTE | 2017-06-03 15:40 | Cardiology Report ---
APPROVED REPORT EXAM: Two-dimensional and M-mode echocardiogram with Doppler and color Doppler. INDICATION LV function M-Mode DIMENSIONS IVSd0.9 (0.7-1.1cm)Left Atrium (MM)3.6 (1.6-4.0cm) LVDd4.7 (3.5-5.6cm)Aortic Root2.6 (2.0-3.7cm) PWd1.5 (0.7-1.1cm)Aortic Cusp Exc.1.8 (1.5-2.0cm) LVDs3.6 (2.5-4.0cm) PWs2.1 cm Normal left ventricular chamber size. Mild global left ventricular hypokinesis. Left ventricular ejection fraction estimated to be 45 %. No evidence of left ventricular hypertrophy. Small posterior pericardial effusion. Left atrial size at upper limits of normal. Right cardiac chamber sizes are within normal limits. Mild focal aortic valve sclerosis with adequate cusp excursion. MIldly thickened mitral valve leaflets with normal excursion. Mitral annulus and aortic root calcification. Normal pulmonic valve structure. Normal tricuspid valve structure. IVC at normal size with physiologic collapse. Pacemaker wire present in the right side chambers. A color flow and spectral Doppler study was performed and revealed: Trace to mild aortic regurgitation. Trace mitral regurgitation. Mitral inflow indicates normal left ventricular diastolic function. Mild tricuspid regurgitation. Tricuspid systolic velocities suggests peak right ventricular systolic pressure of 35 mmHg, consistent with borderline mild pulmonary hypertension.
[2017-06-03 16:00] VITALS: BP 110/65
--- NOTE | 2017-06-03 16:38 | Cardiology Report ---
APPROVED REPORT EKG Measurement Heart [id number] 142P18 [id number] Normal sinus rhythm Nonspecific T wave abnormality Abnormal ECG
--- NOTE | 2017-06-03 16:38 | Cardiology Report ---
APPROVED REPORT EKG Measurement Heart [id number] CA 142P18 [id number] Normal sinus rhythm Nonspecific T wave abnormality Abnormal ECG
--- NOTE | 2017-06-03 16:38 | Cardiology Report ---
APPROVED REPORT EKG Measurement Heart [id number] 142P18 [id number] Normal sinus rhythm Nonspecific T wave abnormality Abnormal ECG
--- NOTE | 2017-06-03 19:23 | Cardiology Progress Note ---
Assessment/Plan Assessment/Plan min abn trop not reach mi criteria no peak no jeff not typical of ischemic echo global hypokinesis [id number] Objective Last 24 Hour Vital Signs Date Time Temp Pulse Resp B/P (MAP) Pulse Ox O2 Delivery O2 Flow Rate FiO2 06/03/17 16:00 98.5 68 18 110/65 98 Room Air 06/03/17 16:00 58 06/03/17 12:04 98.2 58 18 109/65 98 Room Air 06/03/17 12:00 59 06/03/17 08:44 62 110/42 06/03/17 08:00 76 06/03/17 08:00 97.9 61 18 95/58 98 Room Air 06/03/17 04:00 97.7 60 100/71 100 Room Air 06/03/17 04:00 56 06/03/17 00:00 58 06/03/17 00:00 97.0 62 18 110/42 100 Room Air 06/02/17 22:00 98.7 61 18 134/76 100 Room Air 100 06/02/17 22:00 97.9 60 18 138/77 100 Room Air 06/02/17 21:00 98.7 61 18 134/76 100 Room Air Intake and Output 06/03/17 06/04/17 19:00 07:00 Intake Total 1005.0500 ml Balance 1005.0500 ml Intake Oral 800 ml IV Total 205.0500 ml # Voids 2 Laboratory Tests Test 06/02/17 19:30 06/02/17 21:25 06/03/17 02:15 06/03/17 09:15 Prothrombin Time 11.4 SEC (9.30-11.50) 11.8 SEC (9.30-11.50) H Prothromb Time International Ratio 1.1 (0.9-1.1) 1.1 (0.9-1.1) Activated Partial Thromboplast Time 24 SEC (23-33) 39 SEC (23-33) H 39 SEC (23-33) H Troponin I 0.082 ng/mL (0.000-0.056) 0.085 ng/mL (0.000-0.056) Urine Opiates Screen Positive (NEGATIVE) H Urine Barbiturates Screen Negative (NEGATIVE) Phencyclidine (PCP) Screen Negative (NEGATIVE) Urine Amphetamines Screen Negative (NEGATIVE) Urine Benzodiazepines Screen Negative (NEGATIVE) Urine Cocaine Screen Negative (NEGATIVE) Urine Marijuana (THC) Screen Negative (NEGATIVE) White Blood Count 4.3 K/UL (4.8-10.8) L Red Blood Count 3.63 M/UL (4.20-5.40) L Hemoglobin 10.4 G/DL (12.0-16.0) L Hematocrit 33.5 % (37.0-47.0) L Mean Corpuscular Volume 92 FL (80-99) Mean Corpuscular Hemoglobin 28.7 PG (27.0-31.0) Mean Corpuscular Hemoglobin Concent 31.2 G/DL (32.0-36.0) L Red Cell Distribution Width 12.8 % (11.6-14.8) Platelet Count 155 K/UL (150-450) Mean Platelet Volume 7.1 FL (6.5-10.1) Neutrophils (%) (Auto) 43.5 % (45.0-75.0) L Lymphocytes (%) (Auto) 48.0 % (20.0-45.0) H Monocytes (%) (Auto) 6.8 % (1.0-10.0) Eosinophils (%) (Auto) 0.5 % (0.0-3.0) Basophils (%) (Auto) 1.2 % (0.0-2.0) C-Reactive Protein, Quantitative < 0.4 mg/dL (0.00-0.90) Triglycerides Level 49 MG/DL (0-200) Cholesterol Level 228 MG/DL (< 200) H LDL Cholesterol 148 mg/dL (<100) H HDL Cholesterol 67 MG/DL (40-60) H Cholesterol/HDL Ratio 3.4 (3.3-4.4) Thyroid Stimulating Hormone (TSH) 0.354 uiU/mL (0.360-3.740) Test 06/03/17 17:30 Activated Partial Thromboplast Time > 150 SEC (23-33) *H PRIETO SORENSEN Jun 03, 2017 19:23
--- NOTE | 2017-06-03 19:24 | History & Physical ---
History and Physical History & Physicial Dictated for Int Med-Dr Almonte no. [id number]. KATHY CAMPUZANO Jun 03, 2017 19:24
--- NOTE | 2017-06-03 19:24 | History & Physical ---
History and Physical History & Physicial Dictated for Int Med-Dr Almonte no. [id number]. KATHY ACMPUZANO Jun 03, 2017 19:24
--- NOTE | 2017-06-03 19:24 | History & Physical ---
History and Physical History & Physicial Dictated for Int Med-Dr Almonte no. [id number]. KATHY CAMPUZANO Jun 03, 2017 19:24
[2017-06-03 20:00] VITALS: BP_SYST 111; BP_SYST 183; BP_DIAS 69; BP_DIAS 71
[2017-06-03] MEDS: clonazePAM 0.5mg tab ORAL SCH (21:43)
--- NOTE | 2017-06-03 21:45 | History and Physical Report ---
DATE OF ADMISSION: 06/02/2017 CHIEF COMPLAINT: This is a 37-year-old female, presents with complaint of chest pain. HISTORY OF PRESENT ILLNESS: The patient was admitted to [facility] in 01/2017. Please see history and physical and discharge summary dictated at that time. The patient has a history of coronary artery disease. The patient is status post myocardial infarction in 2011. The patient also had AICD placement in 2011. The patient presented to [place] emergency room. The patient was complaining of one-day history of left-sided chest pain. Chest pain occurred at rest. Chest pain was substernal. There was no radiation to the jaw or to the left shoulder. The patient was initially evaluated in [facility] emergency room. An initial troponin level was within normal limits. The patient is admitted for chest pain to rule out acute coronary syndrome. REVIEW OF SYSTEMS: CONSTITUTIONAL: The patient denies weight loss or weight gain. The patient denies fevers or chills. HEENT: The patient denies ear or throat pain. The patient denies headache. CARDIOVASCULAR: The patient complains of chest pain as above. The patient denies palpitations. CHEST: The patient denies wheezes or shortness of breath. ABDOMINAL: The patient denies nausea, vomiting, diarrhea, or constipation. GENITOURINARY: The patient denies dysuria or increased frequency of urination. NEUROMUSCULAR: The patient denies seizures or generalized weakness. PAST MEDICAL HISTORY: Significant for: 1. Coronary artery disease, status post myocardial infarction in 2011. 2. Hypertension. 3. History of cerebrovascular accident in 2011. 4. Left hemiparesis. 5. Hypercholesterolemia. 6. History of asthma. PAST SURGICAL HISTORY: Significant for AICD placement in 2011. CURRENT MEDICATIONS: 1. Albuterol 2 mg one tablet p.o. four times daily. 2. Amiodarone 200 mg one tablet p.o. daily. 3. Enteric-coated aspirin 81 mg one tablet p.o. daily. 4. Lipitor 20 mg one tablet p.o. at bedtime. 5. Coreg 3.125 mg p.o. q.12 hours. 6. Klonopin 0.5 mg one tablet p.o. at bedtime. 7. Lasix 20 mg one tablet p.o. daily. 8. Neurontin 300 mg one tablet p.o. three times daily. 9. Lisinopril 5 mg one tablet p.o. daily. ALLERGIES: No known drug allergies. SOCIAL HISTORY: The patient is single and lives in a board and care. The patient denies tobacco or alcohol use. The patient is disabled. PHYSICAL EXAMINATION: VITAL SIGNS: Temperature 97.7, respirations 18, pulse 60, and blood pressure 100/71. GENERAL: The patient is a well-developed and well-nourished female, in no apparent distress. HEENT: Eyes, pupils are equal and responsive to light and accommodation. Extraocular movements are intact. NECK: Supple without lymphadenopathy. CHEST: Lungs are clear to auscultation bilaterally without wheezes or rales. CARDIOVASCULAR: Regular rhythm and rate. S1 and S2 are normal without murmurs, rubs, or gallops. ABDOMEN: Soft, nontender, and nondistended. Positive bowel sounds. No evidence of hepatosplenomegaly. Currently, no rebound or guarding noted. EXTREMITIES: Negative for clubbing, cyanosis, or edema. RECTAL/GENITAL: Refused. NEUROLOGIC: Cranial nerves II through XII are grossly intact without focal deficits. Motor strength is 5/5 bilaterally. Deep tendon reflexes are 2+ plantar. LABORATORY STUDIES: WBC 5.8, hemoglobin 10.8, hematocrit 36.5, and platelets 143,000. Sodium 140, potassium 4.3, chloride 108, CO2 23, BUN 9, creatinine 1.5, and glucose 92. Troponin elevated at 0.32. ASSESSMENT: This is a 37-year-old female with: 1. Chest pain. 2. History of coronary artery disease. 3. Hypertension. 4. Cerebrovascular disease. 5. Left hemiparesis. 6. Hypercholesteremia. 7. Asthma. TREATMENT: 1. Chest pain/coronary artery disease. A Cardiology consultation has been obtained with Dr. Rodriguez. Serial troponin levels will be performed. A stress test is pending per Cardiology. 2. Hypertension. Continue Coreg as above. Continue lisinopril as above. 3. Cerebrovascular disease. 4. Left hemiparesis. 5. Hypercholesterolemia. Continue Lipitor as above. 6. Asthma. Kiran Avila M.D. DR: ISAAC JOB#: [id number] CC:
[2017-06-04] VITALS: BP 114/64
[2017-06-04] MEDS: Ketorolac 30mg Inj IV PRN (01:17)
[2017-06-04] MEDS ORDERED: Heparin 25,000 units/D5W 500ml (ACS/MI) IV SCH ×2 (03:30→04:30)
[2017-06-04 04:00] VITALS: BP 96/64
--- NOTE | 2017-06-04 05:31 | Consultation ---
DATE OF CONSULTATION: 06/03/2017 CARDIOLOGY CONSULTATION REFERRING PHYSICIAN: Arlene Vallecillo M.D. REASON FOR REFERRAL: Chest pain. HISTORY OF PRESENT ILLNESS: This is a 37-year-old female, who has had a history of apparently cardiomyopathy, the details of which are not really known, although she has been told she has a history of enlarged heart. She has reportedly had a heart attack and a stroke in 2011, which left her left side of body numb. She presented to the hospital because of chest pain that she has been experiencing for the past few days. She has had this chest pain on prior occasions as well and she was told it was related to "heart muscle." The pains are constantly present, do not not really get worse when she coughs or takes a deep breath or walks or tries to sit up or stand up, but it does get better when she eats she states. It is in the entire chest and is constantly present, but she has occasional heart pounding and palpitations. She uses two pillows. She really does not wake up because of shortness of breath. She has occasional shortness of breath on exertion and she has occasional palpitations. PAST MEDICAL HISTORY: Positive for history of enlarged heart, history of defibrillator implantation, history of stroke, and questionable history of heart attack. No cancer. No hepatitis or tuberculosis. No asthma or emphysema. No ulcers, kidney problems, liver problems, thyroid problems, anemia, or arthritis. MEDICATIONS: The patient is on amiodarone 200 mg a day, aspirin 162 mg a day, Coreg 3.125 mg twice daily, Lipitor 20 mg nightly, and lisinopril 5 mg daily. SOCIAL HISTORY: She does not smoke or drink or use drugs and never did. She lives in independent living situation. REVIEW OF SYSTEMS: GASTROINTESTINAL: Negative. GENITOURINARY: Negative. PULMONARY: Negative. CONSTITUTIONAL: Negative. NEUROLOGICAL: Left-sided body numbness. PHYSICAL EXAMINATION: GENERAL: Shows to be a young female, in no respiratory distress. NECK: Supple. No jugular venous distention. LUNGS: Clear to auscultation and percussion. CARDIAC: S1 is normal. S2 is normal. Regular rate and rhythm. No heaves, thrills, gallops, or rubs are noted. ABDOMEN: Soft and nontender. Positive bowel sounds. EXTREMITIES: There is no clubbing, cyanosis, or edema. NEUROLOGICAL: She is awake, alert, and responsive, in no apparent distress. LABORATORY AND DIAGNOSTIC DATA: Laboratory values, white count of 4.3, hemoglobin 10.4, and platelet count of 154,000. Sodium is 140, potassium 4.2, chloride 108, bicarbonate 22, BUN of 9, creatinine 1.5, and glucose of 72. AST 125 and ALT 136. She has had 503 for the AST in January 2015 and 521 for ALT. Troponin is 0.082, 0.082, and 0.085. CRP is less than 0.4 and her proBNP is 214. Total cholesterol 228 with a LDL of 148 and HDL of 67. TSH is 0.354 and her coags, PTT of greater than 150. Her urinalysis is fairly unremarkable. Echocardiogram was performed today, showed ejection fraction of 45% with mild global hypokinesis, the pacemaker wire being present. There is mild valvular regurgitation. PA pressure is only 35. She has had an ischemia evaluation here in March 2016 that showed ejection fraction of 51%, fixed perfusion defect in the inferolateral wall near the apex consistent with an infarct, very questionable reversible defect in the septal area near the base and ischemia in that area was not excludable. A venous duplex of the lower extremities showed no evidence of thrombus, and a chest x-ray performed shows no acute processes. Her electrocardiogram shows normal sinus rhythm, leftward axis, and some nonspecific T-wave changes being documented, and in direct comparison, EKG that is available to review by the paramedics from 02/05/2017, the EKG appears to be unchanged. ASSESSMENT AND PLAN: 1. Atypical chest pain. 2. Nonspecific abnormal cardiac enzymes. 3. Mild renal insufficiency. 4. Abnormal liver function tests. 5. History of stroke. 6. History of intracardiac defibrillator implantation. Dr. Vallecillo, this patient was seen in cardiac consultation. The patient's cardiac enzymes are minimally abnormal and do not reach the level of diagnosis for myonecrosis from myocardial infarction. The level does not have any peak or jeff, which is not suggestive of a coronary syndrome. This persistence and minimally elevated levels are nondiagnostic and are questionable in light of the fact that she has some renal insufficiency. She has had an ischemia evaluation previously as noted above and probably would not pursue any further cardiac workup unless the cardiac enzymes either go down completely or go up more and go back down. She is to have evaluation for abnormal liver function tests and renal insufficiency. Jian Rodriguez M.D. DR: Donny JOB#: [id number] CC:
[2017-06-04] MEDS: NovoLOG Insulin Flexpen SUBQ SCH ×4 (06:30→20:16)
[2017-06-04 08:00] VITALS: BP 104/63
[2017-06-04] MEDS: Aspirin Baby 81mg ORAL SCH (10:05)
[2017-06-04] MEDS: Lisinopril 2.5mg tab ORAL SCH (10:05)
[2017-06-04] MEDS: Amiodarone 200mg tab ORAL SCH (10:09)
[2017-06-04] MEDS: Heparin 25,000 units/D5W 500ml (ACS/MI) IV SCH ×2 (11:27→17:44)
[2017-06-04 12:00] VITALS: BP 116/71
--- NOTE | 2017-06-04 12:21 | Cardiac Electrophysiology PN ---
Subjective Subjective EP consult [id number] Plse refer to my note from prior admission this year. Will interrogate ICD for its function and burden of atrial fib. Management of Troponin leak and CHF per Dr Rodriguez Objective Last 24 Hour Vital Signs Date Time Temp Pulse Resp B/P (MAP) Pulse Ox O2 Delivery O2 Flow Rate FiO2 06/04/17 10:05 104/63 06/04/17 09:00 59 104/63 06/04/17 08:00 97.9 63 20 104/63 100 Room Air 06/04/17 07:55 61 18 21 06/04/17 04:00 96.4 60 20 96/64 100 Room Air 06/04/17 03:45 58 06/04/17 01:47 98.6 06/04/17 00:00 61 06/04/17 00:00 98.6 55 20 114/64 98 Room Air 06/03/17 21:42 56 111/69 06/03/17 20:00 97.7 56 20 111/69 99 Room Air 06/03/17 19:36 66 06/03/17 16:00 98.5 68 18 110/65 98 Room Air 06/03/17 16:00 58 Intake and Output 06/04/17 06/05/17 19:00 07:00 Intake Total 38.211 ml Balance 38.211 ml IV Total 38.211 ml Laboratory Tests Test 06/03/17 17:30 06/04/17 01:40 06/04/17 10:15 Activated Partial Thromboplast Time > 150 SEC (23-33) *H > 150 SEC (23-33) *H 64 SEC (23-33) H Troponin I 0.051 ng/mL (0.000-0.056) DIMITRIS PEDRO Jun 04, 2017 12:21
--- NOTE | 2017-06-04 15:14 | Pulmonology Progress Note ---
Assessment/Plan Problems: (1) ACS (acute coronary syndrome) (2) Cardiomyopathy (3) AICD (automatic cardioverter/defibrillator) present (4) HTN (hypertension) (5) Cerebral vascular disease Assessment/Plan still complaining of chest pain, headache. still on heparin drip cardiology to decide about what to do symptomatic treatment f/u troponin keep in teli as long as on Heparin Subjective ROS Limited/Unobtainable: No Constitutional: Reports: no symptoms HEENT: Repors: no symptoms Respiratory: Reports: no symptoms Cardiovascular: Reports: no symptoms Allergies: Coded Allergies: No Known Allergies (Unverified , 05/15/15) Objective Last 24 Hour Vital Signs Date Time Temp Pulse Resp B/P (MAP) Pulse Ox O2 Delivery O2 Flow Rate FiO2 06/04/17 12:00 97.8 57 21 116/71 99 Room Air 06/04/17 12:00 60 06/04/17 10:05 104/63 06/04/17 09:00 59 104/63 06/04/17 08:00 79 06/04/17 08:00 97.9 63 20 104/63 100 Room Air 06/04/17 07:55 61 18 21 06/04/17 04:00 96.4 60 20 96/64 100 Room Air 06/04/17 03:45 58 06/04/17 01:47 98.6 06/04/17 00:00 61 06/04/17 00:00 98.6 55 20 114/64 98 Room Air 06/03/17 21:42 56 111/69 06/03/17 20:00 97.7 56 20 111/69 99 Room Air 06/03/17 19:36 66 06/03/17 16:00 98.5 68 18 110/65 98 Room Air 06/03/17 16:00 58 Intake and Output 06/04/17 06/05/17 19:00 07:00 Intake Total 54.938 ml Balance 54.938 ml IV Total 54.938 ml General Appearance: WD/WN HEENT: normocephalic, atraumatic Respiratory/Chest: chest wall non-tender, lungs clear Breasts: no masses Cardiovascular: normal peripheral pulses Abdomen: normal bowel sounds, soft, non tender Genitourinary: normal external genitalia Skin: no rash 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 Lymphatic: no neck adenopathy Laboratory Tests 06/03/17 17:30: Activated Partial Thromboplast Time > 150*H 06/04/17 01:40: Activated Partial Thromboplast Time > 150*H, Troponin I 0.051 06/04/17 10:15: Activated Partial Thromboplast Time 64H Current Medications Medications (Trade) Dose Ordered Sig/Vilma Route PRN Reason Start Time Stop Time Status Last Admin Dose Admin Acetaminophen (Tylenol) 650 mg Q4H PRN ORAL FEVER 06/02/17 21:15 07/02/17 21:14 Albuterol/ Ipratropium (Albuterol/ Ipratropium) 3 ml Q4H PRN HHN Shortness of Breath 06/02/17 21:15 06/07/17 21:14 Amiodarone HCl (Cordarone) 200 mg DAILY ORAL 06/03/17 09:00 07/03/17 08:59 06/04/17 10:09 Aspirin (ASA) 162 mg DAILY ORAL 06/03/17 09:00 07/03/17 08:59 06/04/17 10:05 Carvedilol (Coreg) 3.125 mg EVERY 12 HOURS ORAL 06/03/17 09:00 07/03/17 08:59 Clonazepam (KlonoPIN) 0.5 mg BEDTIME ORAL 06/02/17 22:00 06/09/17 21:59 06/03/17 21:43 Dextrose (Dextrose 50%) STAT PRN IV Hypoglycemia 06/02/17 21:15 07/02/17 21:14 Diltiazem HCl (Cardizem) 10 mg Q1H PRN IV heart rate more than 120, 06/02/17 21:15 07/02/17 21:14 Gabapentin (Neurontin) 300 mg THREE TIMES A DAY ORAL 06/03/17 09:00 07/03/17 08:59 06/04/17 13:22 Heparin Sodium/ Dextrose 500 ml @ 13.798 mls/ hr Q24H IV 06/04/17 11:30 07/04/17 11:29 06/04/17 11:27 Insulin Aspart (NovoLOG) BEFORE MEALS AND HS SUBQ 06/03/17 06:30 07/03/17 06:29 Ketorolac Tromethamine (Toradol 30mg) 30 mg Q6H PRN IV moderate pain ( 4-6) 06/02/17 21:15 06/07/17 21:14 06/04/17 01:17 Lisinopril (Zestril) 2.5 mg DAILY ORAL 06/04/17 09:00 07/04/17 08:59 06/04/17 10:05 Morphine Sulfate (Morphine Sulfate) 2 mg Q4H PRN IVP severe Pain (Pain Scale 7-10) 06/02/17 21:15 06/09/17 21:14 06/03/17 03:57 Morphine Sulfate (Morphine 5mg/ 2.5ml Oral Soln) 6 mg Q4H PRN ORAL SEVERE PAIN, IF ABLE TO TAKE O 06/03/17 15:45 07/03/17 15:44 Nitroglycerin (Ntg) 0.4 mg Every 5 Minutes PRN SL Prn Chest Pain 06/02/17 21:15 07/02/17 21:14 Ondansetron HCl (Zofran) 4 mg Q6H PRN IVP Nausea & Vomiting 06/02/17 21:15 07/02/17 21:14 Pantoprazole (Protonix) 40 mg DAILY ORAL 06/03/17 09:00 07/03/17 08:59 06/04/17 10:05 Polyethylene Glycol (Miralax) 17 gm DAILYPRN PRN ORAL Constipation 06/02/17 21:15 07/02/17 21:14 Temazepam (Restoril) 15 mg HSPRN PRN ORAL Insomnia 06/02/17 21:15 06/09/17 21:14 DEBORAH JACKSON Jun 04, 2017 15:14
[2017-06-04 16:00] VITALS: BP 111/71
[2017-06-04] MEDS ORDERED: Heparin 5000 units/ml inj IV ONE (17:30)
--- NOTE | 2017-06-04 17:42 | Internal Med Progress Note ---
Subjective Date of Service: Jun 04, 2017 Physician Name MargaritaKathy Attending Physician Ángel Almonte MD Current Medications Medications (Trade) Dose Ordered Sig/Vilma Route PRN Reason Start Time Stop Time Status Last Admin Dose Admin Acetaminophen (Tylenol) 650 mg Q4H PRN ORAL FEVER 06/02/17 21:15 07/02/17 21:14 Albuterol/ Ipratropium (Albuterol/ Ipratropium) 3 ml Q4H PRN HHN Shortness of Breath 06/02/17 21:15 06/07/17 21:14 Amiodarone HCl (Cordarone) 200 mg DAILY ORAL 06/03/17 09:00 07/03/17 08:59 06/04/17 10:09 Aspirin (ASA) 162 mg DAILY ORAL 06/03/17 09:00 07/03/17 08:59 06/04/17 10:05 Carvedilol (Coreg) 3.125 mg EVERY 12 HOURS ORAL 06/03/17 09:00 07/03/17 08:59 Clonazepam (KlonoPIN) 0.5 mg BEDTIME ORAL 06/02/17 22:00 06/09/17 21:59 06/03/17 21:43 Dextrose (Dextrose 50%) STAT PRN IV Hypoglycemia 06/02/17 21:15 07/02/17 21:14 Diltiazem HCl (Cardizem) 10 mg Q1H PRN IV heart rate more than 120, 06/02/17 21:15 07/02/17 21:14 Gabapentin (Neurontin) 300 mg THREE TIMES A DAY ORAL 06/03/17 09:00 07/03/17 08:59 06/04/17 13:22 Heparin Sodium/ Dextrose 500 ml @ 18.044 mls/ hr Q24H IV 06/04/17 11:30 07/04/17 11:29 06/04/17 11:27 Insulin Aspart (NovoLOG) BEFORE MEALS AND HS SUBQ 06/03/17 06:30 07/03/17 06:29 Ketorolac Tromethamine (Toradol 30mg) 30 mg Q6H PRN IV moderate pain ( 4-6) 06/02/17 21:15 06/07/17 21:14 06/04/17 01:17 Lisinopril (Zestril) 2.5 mg DAILY ORAL 06/04/17 09:00 07/04/17 08:59 06/04/17 10:05 Morphine Sulfate (Morphine 5mg/ 2.5ml Oral Soln) 6 mg Q4H PRN ORAL SEVERE PAIN, IF ABLE TO TAKE O 06/03/17 15:45 07/03/17 15:44 Nitroglycerin (Ntg) 0.4 mg Every 5 Minutes PRN SL Prn Chest Pain 06/02/17 21:15 07/02/17 21:14 Ondansetron HCl (Zofran) 4 mg Q6H PRN IVP Nausea & Vomiting 06/02/17 21:15 07/02/17 21:14 Pantoprazole (Protonix) 40 mg DAILY ORAL 06/03/17 09:00 07/03/17 08:59 06/04/17 10:05 Polyethylene Glycol (Miralax) 17 gm DAILYPRN PRN ORAL Constipation 06/02/17 21:15 07/02/17 21:14 Temazepam (Restoril) 15 mg HSPRN PRN ORAL Insomnia 06/02/17 21:15 06/09/17 21:14 Allergies: Coded Allergies: No Known Allergies (Unverified , 05/15/15) ROS Limited/Unobtainable: No Constitutional: Reports: no symptoms HEENT: Reports: no symptoms Cardiovascular: Reports: chest pain Respiratory: Reports: no symptoms Gastrointestinal/Abdominal: Reports: no symptoms Genitourinary: Reports: no symptoms Neurologic/Psychiatric: Reports: no symptoms Subjective 37 YO F admitted with chest pain. Cover for Int Christopher-Dr Almonte. Objective Last Vital Signs Date Time Temp Pulse Resp B/P (MAP) Pulse Ox O2 Delivery O2 Flow Rate FiO2 06/04/17 16:00 97.0 58 20 111/71 94 Room Air 06/04/17 07:55 21 General Appearance: WD/WN, no apparent distress, alert EENT: PERRL/EOMI, normal ENT inspection, TMs normal Neck: non-tender, normal alignment, supple Cardiovascular: normal peripheral pulses, normal rate, regular rhythm, no gallop/murmur, no JVD Respiratory/Chest: chest wall non-tender, lungs clear, normal breath sounds, no respiratory distress, no accessory muscle use Abdomen: normal bowel sounds, non tender, soft, no organomegaly, no mass Extremities: normal range of motion, non-tender 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 (2) ACS (acute coronary syndrome) (3) CAD (coronary artery disease) (4) Chest pain (5) HTN (hypertension) Assessment & Plan: Cont coreg (6) Cerebral vascular disease (7) Left hemiparesis (8) Hypercholesteremia (9) Asthma (10) AICD (automatic cardioverter/defibrillator) present Assessment & Plan: See EP cardiology note. KATHY CAMPUZANO Jun 04, 2017 17:42
--- NOTE | 2017-06-04 19:16 | Cardiology Progress Note ---
Assessment/Plan Assessment/Plan 1. Atypical chest pain. 2. Nonspecific abnormal cardiac enzymes. 3. Mild renal insufficiency. 4. Abnormal liver function tests. 5. History of stroke. 6. History of intracardiac defibrillator implantation. trop now normal still with cp with her prior hs will likely need ischemia eval again ep input appreciated Subjective Cardiovascular: Reports: chest pain Respiratory: Reports: shortness of breath Gastrointestinal/Abdominal: Denies: abdominal pain Genitourinary: Denies: burning Objective Last 24 Hour Vital Signs Date Time Temp Pulse Resp B/P (MAP) Pulse Ox O2 Delivery O2 Flow Rate FiO2 06/04/17 16:00 56 06/04/17 16:00 97.0 58 20 111/71 94 Room Air 06/04/17 12:00 97.8 57 21 116/71 99 Room Air 06/04/17 12:00 60 06/04/17 10:05 104/63 06/04/17 09:00 59 104/63 06/04/17 08:00 79 06/04/17 08:00 97.9 63 20 104/63 100 Room Air 06/04/17 07:55 61 18 21 06/04/17 04:00 96.4 60 20 96/64 100 Room Air 06/04/17 03:45 58 06/04/17 01:47 98.6 06/04/17 00:00 61 06/04/17 00:00 98.6 55 20 114/64 98 Room Air 06/03/17 21:42 56 111/69 06/03/17 20:00 97.7 56 20 111/69 99 Room Air 06/03/17 19:36 66 General Appearance: no apparent distress, alert Cardiovascular: normal rate, regular rhythm Respiratory/Chest: lungs clear, normal breath sounds Abdomen: normal bowel sounds, non tender, soft Extremities: no swelling Intake and Output 06/04/17 06/05/17 19:00 07:00 Intake Total 723.928 ml Balance 723.928 ml Intake Oral 600 ml IV Total 123.928 ml # Voids 3 Laboratory Tests Test 06/04/17 01:40 06/04/17 10:15 06/04/17 16:50 Activated Partial Thromboplast Time > 150 SEC (23-33) *H 64 SEC (23-33) H 50 SEC (23-33) H Troponin I 0.051 ng/mL (0.000-0.056) PRIETO SORENSEN Jun 04, 2017 19:16
[2017-06-04 20:00] VITALS: BP 109/64
[2017-06-04] MEDS: clonazePAM 0.5mg tab ORAL SCH (20:16)
[2017-06-05] VITALS: BP 7/65
--- NOTE | 2017-06-05 00:45 | Consultation ---
DATE OF CONSULTATION: 06/04/2017 CARDIAC ELECTROPHYSIOLOGY CONSULTATION CONSULTING PHYSICIAN: Julian Malagon M.D. REFERRING PHYSICIAN: Ángel Almonte M.D. REASON FOR CONSULTATION: Evaluation of the patient's defibrillator in a patient with atrial fibrillation. HISTORY OF PRESENT ILLNESS: The patient is a very pleasant 37-year-old lady who I am quite familiar with from multiple previous hospitalizations to [facility]. The patient has a history of hypertension, paroxysmal atrial fibrillation, history of cardiomyopathy, ejection fraction around 40% as well as history of [employer] defibrillator implantation. The patient also has CVA with left hemiparesis. The patient's nuclear stress test in March 2016 showed no evidence of ischemia. The patient presented to the emergency room complaining of chest pain. The patient was evaluated by Dr. Rodriguez from Cardiology perspective and was started on heparin drip for elevated troponin. Cardiac electrophysiology consultation was obtained for management of her atrial fibrillation as well as evaluation of the patient's defibrillator. PAST MEDICAL HISTORY: 1. Hypertension. 2. Congestive heart failure. 3. History of [facility] defibrillator implantation. 4. History of CVA. MEDICATIONS: Medications at home include, 1. Amiodarone 200 mg daily. 2. Aspirin. 3. Coreg 3.125 mg b.i.d. 4. Lipitor 20 mg. 5. Lisinopril 5 mg daily. REVIEW OF SYSTEMS: Negative other than what was mentioned in the history of present illness. PHYSICAL EXAMINATION: VITAL SIGNS: Blood pressure is 104/63, pulse 60, respirations 18, and temperature 98 degrees. HEAD AND NECK: No JVD. LUNGS: Clear. CARDIOVASCULAR: Regular S1 and S2 with no gallop. ABDOMEN: Soft. EXTREMITIES: No pitting edema. Defibrillator in left subclavian is intact. LABORATORY DATA: White count of 4.3, hemoglobin of 10.4, hematocrit 33.5, and platelet count is 155,000. Troponin is 0.82, 0.82, and 0.51. Sodium 140, potassium is 4.2, BUN of 9, and creatinine of 1.5. ASSESSMENT AND PLAN: 1. Status post [employer] defibrillator implantation. Defibrillator will be interrogated for further evaluation. 2. Paroxysmal atrial fibrillation. The patient is on aspirin, amiodarone, and Coreg 3.125 mg b.i.d. that would be continued. 3. Chest pain. Troponin levels are flat. Further evaluation by Dr. Rodriguez. 4. Cardiomyopathy, on lisinopril 2.5 mg daily and Coreg 3.125 mg b.i.d. It is of note that the patient's repeat echocardiogram on this admission showed ejection fraction of 45% and her EKG showed sinus rhythm with nonspecific T-wave abnormality. Thank you very much Dr. Almonte for allowing me to participate in the care of this patient. Please do not hesitate to contact me if you have any questions regarding my evaluation. Julian Malagon M.D. DR: Collin JOB#: [id number] CC:
[2017-06-05] MEDS: Heparin 25,000 units/D5W 500ml (ACS/MI) IV SCH ×2 (01:42→17:31)
[2017-06-05 04:00] VITALS: BP 110/65
[2017-06-05] MEDS: NovoLOG Insulin Flexpen SUBQ SCH ×4 (06:30→20:20)
[2017-06-05 08:00] VITALS: BP 114/75
[2017-06-05] MEDS: Lisinopril 2.5mg tab ORAL SCH (08:52)
[2017-06-05] MEDS: Aspirin Baby 81mg ORAL SCH (08:53)
[2017-06-05] MEDS: Amiodarone 200mg tab ORAL SCH (08:53)
[2017-06-05 09:06] LABS: BASOPHILS % (AUTO) 1.2 % (0.0-2.0); EOSINOPHILS % (AUTO) 0.6 % (0.0-3.0); HEMATOCRIT 35.1 % (37.0-47.0); HEMOGLOBIN 11.5 G/DL (12.0-16.0); LYMPHOCYTES % (AUTO) 24.6 % (20.0-45.0); MEAN CORPUSCULAR VOLUME 92 FL (80-99); MONOCYTES % (AUTO) 8.3 % (1.0-10.0); NEUTROPHILS % (AUTO) 65.3 % (45.0-75.0); PLATELET COUNT 166 K/UL (150-450); RED CELL DISTRIBUTION WIDTH 12.8 % (11.6-14.8); WHITE BLOOD COUNT 4.7 K/UL (4.8-10.8)
[2017-06-05 09:32] LABS: ANION GAP 8 mmol/L (5-15); BLOOD UREA NITROGEN 6 mg/dL (7-18); CALCIUM 8.7 MG/DL (8.5-10.1); CARBON DIOXIDE 24 MMOL/L (21-32); CHLORIDE 104 MMOL/L (98-107); CREATININE 1.4 MG/DL (0.55-1.30); POTASSIUM 4.3 MMOL/L (3.5-5.1); SODIUM 136 MMOL/L (136-145)
[2017-06-05 12:00] VITALS: BP 107/67
--- NOTE | 2017-06-05 12:21 | Cardiology Progress Note ---
Assessment/Plan Assessment/Plan 1. Atypical chest pain. 2. Nonspecific abnormal cardiac enzymes. 3. Mild renal insufficiency. 4. Abnormal liver function tests. 5. History of stroke. 6. History of intracardiac defibrillator implantation. trop now remain normal still with cp agian today with her prior hs will need ischemia eval again sched for wednesday i have discussed with pt Subjective Cardiovascular: Reports: chest pain, lightheadedness Respiratory: Reports: shortness of breath Gastrointestinal/Abdominal: Denies: abdominal pain Genitourinary: Denies: burning Objective Last 24 Hour Vital Signs Date Time Temp Pulse Resp B/P (MAP) Pulse Ox O2 Delivery O2 Flow Rate FiO2 06/05/17 08:52 114/75 06/05/17 08:52 65 114/75 06/05/17 08:00 62 06/05/17 08:00 65 18 21 06/05/17 08:00 97.7 60 20 114/75 99 Room Air 06/05/17 04:00 97.0 95 18 110/65 100 Room Air 21 06/05/17 04:00 60 06/05/17 00:00 60 06/05/17 00:00 97.0 18 18 7/65 98 Room Air 21 06/04/17 20:17 68 112/65 06/04/17 20:00 97.7 61 18 109/64 98 Room Air 21 06/04/17 20:00 64 06/04/17 19:00 68 18 21 06/04/17 16:00 56 06/04/17 16:00 97.0 58 20 111/71 94 Room Air General Appearance: alert Neck: supple Cardiovascular: normal rate, regular rhythm Respiratory/Chest: lungs clear Abdomen: normal bowel sounds, non tender, soft Extremities: no swelling Intake and Output 06/05/17 06/06/17 19:00 07:00 Intake Total 74.30 ml Balance 74.30 ml IV Total 74.30 ml Laboratory Tests Test 06/04/17 16:50 06/04/17 23:40 06/05/17 08:30 Activated Partial Thromboplast Time 50 SEC (23-33) H 129 SEC (23-33) H 79 SEC (23-33) H Troponin I 0.050 ng/mL (0.000-0.056) White Blood Count 4.7 K/UL (4.8-10.8) L Red Blood Count 3.80 M/UL (4.20-5.40) L Hemoglobin 11.5 G/DL (12.0-16.0) L Hematocrit 35.1 % (37.0-47.0) L Mean Corpuscular Volume 92 FL (80-99) Mean Corpuscular Hemoglobin 30.1 PG (27.0-31.0) Mean Corpuscular Hemoglobin Concent 32.6 G/DL (32.0-36.0) Red Cell Distribution Width 12.8 % (11.6-14.8) Platelet Count 166 K/UL (150-450) Mean Platelet Volume 9.4 FL (6.5-10.1) Neutrophils (%) (Auto) 65.3 % (45.0-75.0) Lymphocytes (%) (Auto) 24.6 % (20.0-45.0) Monocytes (%) (Auto) 8.3 % (1.0-10.0) Eosinophils (%) (Auto) 0.6 % (0.0-3.0) Basophils (%) (Auto) 1.2 % (0.0-2.0) Sodium Level 136 MMOL/L (136-145) Potassium Level 4.3 MMOL/L (3.5-5.1) Chloride Level 104 MMOL/L (98-107) Carbon Dioxide Level 24 MMOL/L (21-32) Anion Gap 8 mmol/L (5-15) Blood Urea Nitrogen 6 mg/dL (7-18) L Creatinine 1.4 MG/DL (0.55-1.30) H Estimat Glomerular Filtration Rate 51.3 mL/min (>60) Glucose Level 96 MG/DL (74-106) Calcium Level 8.7 MG/DL (8.5-10.1) Pro-B-Type Natriuretic Peptide 98 pg/mL (0-125) PRIETO SORENSEN Jun 05, 2017 12:21
[2017-06-05] MEDS ORDERED: Heparin 2000 units/Ns 1000ml INJ PRN (13:15)
[2017-06-05] MEDS ORDERED: Lidocaine 1% Plain 30 ml INJ PRN (13:15)
--- NOTE | 2017-06-05 13:18 | Internal Med Progress Note ---
Subjective Date of Service: Jun 05, 2017 Physician Name Kathy Campuzano Attending Physician Ángel Almonte MD Current Medications Medications (Trade) Dose Ordered Sig/Vilma Route PRN Reason Start Time Stop Time Status Last Admin Dose Admin Acetaminophen (Tylenol) 650 mg Q4H PRN ORAL FEVER 06/02/17 21:15 07/02/17 21:14 Albuterol/ Ipratropium (Albuterol/ Ipratropium) 3 ml Q4H PRN HHN Shortness of Breath 06/02/17 21:15 06/07/17 21:14 Amiodarone HCl (Cordarone) 200 mg DAILY ORAL 06/03/17 09:00 07/03/17 08:59 06/05/17 08:53 Aspirin (ASA) 162 mg DAILY ORAL 06/03/17 09:00 07/03/17 08:59 06/05/17 08:53 Carvedilol (Coreg) 3.125 mg EVERY 12 HOURS ORAL 06/03/17 09:00 07/03/17 08:59 06/05/17 08:52 Clonazepam (KlonoPIN) 0.5 mg BEDTIME ORAL 06/02/17 22:00 06/09/17 21:59 06/04/17 20:16 Dextrose (Dextrose 50%) STAT PRN IV Hypoglycemia 06/02/17 21:15 07/02/17 21:14 Diltiazem HCl (Cardizem) 10 mg Q1H PRN IV heart rate more than 120, 06/02/17 21:15 07/02/17 21:14 Gabapentin (Neurontin) 300 mg THREE TIMES A DAY ORAL 06/03/17 09:00 07/03/17 08:59 06/05/17 08:53 Heparin Sodium/ Dextrose 500 ml @ 14.86 mls/ hr Q24H IV 06/05/17 01:45 07/05/17 01:44 06/05/17 01:42 Insulin Aspart (NovoLOG) BEFORE MEALS AND HS SUBQ 06/03/17 06:30 07/03/17 06:29 Ketorolac Tromethamine (Toradol 30mg) 30 mg Q6H PRN IV moderate pain ( 4-6) 06/02/17 21:15 06/07/17 21:14 06/04/17 01:17 Lisinopril (Zestril) 2.5 mg DAILY ORAL 06/04/17 09:00 07/04/17 08:59 06/05/17 08:52 Morphine Sulfate (Morphine 5mg/ 2.5ml Oral Soln) 6 mg Q4H PRN ORAL SEVERE PAIN, IF ABLE TO TAKE O 06/03/17 15:45 07/03/17 15:44 Nitroglycerin (Ntg) 0.4 mg Every 5 Minutes PRN SL Prn Chest Pain 06/02/17 21:15 07/02/17 21:14 Ondansetron HCl (Zofran) 4 mg Q6H PRN IVP Nausea & Vomiting 06/02/17 21:15 07/02/17 21:14 Pantoprazole (Protonix) 40 mg DAILY ORAL 06/03/17 09:00 07/03/17 08:59 06/05/17 08:52 Polyethylene Glycol (Miralax) 17 gm DAILYPRN PRN ORAL Constipation 06/02/17 21:15 07/02/17 21:14 Temazepam (Restoril) 15 mg HSPRN PRN ORAL Insomnia 06/02/17 21:15 06/09/17 21:14 Allergies: Coded Allergies: No Known Allergies (Unverified , 05/15/15) ROS Limited/Unobtainable: No Constitutional: Reports: no symptoms HEENT: Reports: no symptoms Cardiovascular: Reports: chest pain Respiratory: Reports: no symptoms Gastrointestinal/Abdominal: Reports: no symptoms Genitourinary: Reports: no symptoms Neurologic/Psychiatric: Reports: no symptoms Subjective 37 YO F admitted with chest pain. Cover for Int Christopher-Dr Almonte. Objective Last Vital Signs Date Time Temp Pulse Resp B/P (MAP) Pulse Ox O2 Delivery O2 Flow Rate FiO2 06/05/17 12:00 59 06/05/17 12:00 97.5 21 107/67 98 Room Air 06/05/17 08:00 21 Laboratory Tests Test 06/04/17 16:50 06/04/17 23:40 06/05/17 08:30 Activated Partial Thromboplast Time 50 SEC (23-33) H 129 SEC (23-33) H 79 SEC (23-33) H Troponin I 0.050 ng/mL (0.000-0.056) White Blood Count 4.7 K/UL (4.8-10.8) L Red Blood Count 3.80 M/UL (4.20-5.40) L Hemoglobin 11.5 G/DL (12.0-16.0) L Hematocrit 35.1 % (37.0-47.0) L Mean Corpuscular Volume 92 FL (80-99) Mean Corpuscular Hemoglobin 30.1 PG (27.0-31.0) Mean Corpuscular Hemoglobin Concent 32.6 G/DL (32.0-36.0) Red Cell Distribution Width 12.8 % (11.6-14.8) Platelet Count 166 K/UL (150-450) Mean Platelet Volume 9.4 FL (6.5-10.1) Neutrophils (%) (Auto) 65.3 % (45.0-75.0) Lymphocytes (%) (Auto) 24.6 % (20.0-45.0) Monocytes (%) (Auto) 8.3 % (1.0-10.0) Eosinophils (%) (Auto) 0.6 % (0.0-3.0) Basophils (%) (Auto) 1.2 % (0.0-2.0) Sodium Level 136 MMOL/L (136-145) Potassium Level 4.3 MMOL/L (3.5-5.1) Chloride Level 104 MMOL/L (98-107) Carbon Dioxide Level 24 MMOL/L (21-32) Anion Gap 8 mmol/L (5-15) Blood Urea Nitrogen 6 mg/dL (7-18) L Creatinine 1.4 MG/DL (0.55-1.30) H Estimat Glomerular Filtration Rate 51.3 mL/min (>60) Glucose Level 96 MG/DL (74-106) Calcium Level 8.7 MG/DL (8.5-10.1) Pro-B-Type Natriuretic Peptide 98 pg/mL (0-125) Intake and Output 06/05/17 06/06/17 19:00 07:00 Intake Total 89.16 ml Balance 89.16 ml IV Total 89.16 ml Objective General Appearance: WD/WN, no apparent distress, alert EENT: PERRL/EOMI, normal ENT inspection, TMs normal Neck: non-tender, normal alignment, supple Cardiovascular: normal peripheral pulses, normal rate, regular rhythm, no gallop/murmur, no JVD Respiratory/Chest: chest wall non-tender, lungs clear, normal breath sounds, no respiratory distress, no accessory muscle use Abdomen: normal bowel sounds, non tender, soft, no organomegaly, no mass Extremities: normal range of motion, non-tender 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 (2) ACS (acute coronary syndrome) (3) CAD (coronary artery disease) (4) Chest pain (5) HTN (hypertension) Assessment & Plan: Cont coreg (6) Cerebral vascular disease (7) Left hemiparesis (8) Hypercholesteremia (9) Asthma (10) AICD (automatic cardioverter/defibrillator) present Assessment & Plan: See EP cardiology note. Status: not improved KATHY CAMPUZANO Jun 05, 2017 13:18
--- NOTE | 2017-06-05 13:19 | Pulmonology Progress Note ---
Assessment/Plan Problems: (1) ACS (acute coronary syndrome) (2) Cardiomyopathy (3) AICD (automatic cardioverter/defibrillator) present (4) HTN (hypertension) (5) Cerebral vascular disease Assessment/Plan still complaining of chest pain, headache. still on heparin drip needs stress test, d/w Dr. Woodard symptomatic treatment f/u troponin Subjective ROS Limited/Unobtainable: No Constitutional: Reports: no symptoms Respiratory: Reports: no symptoms Cardiovascular: Reports: chest pain Allergies: Coded Allergies: No Known Allergies (Unverified , 05/15/15) Objective Last 24 Hour Vital Signs Date Time Temp Pulse Resp B/P (MAP) Pulse Ox O2 Delivery O2 Flow Rate FiO2 06/05/17 12:00 59 06/05/17 12:00 97.5 61 21 107/67 98 Room Air 06/05/17 08:52 114/75 06/05/17 08:52 65 114/75 06/05/17 08:00 62 06/05/17 08:00 65 18 21 06/05/17 08:00 97.7 60 20 114/75 99 Room Air 06/05/17 04:00 97.0 95 18 110/65 100 Room Air 21 06/05/17 04:00 60 06/05/17 00:00 60 06/05/17 00:00 97.0 18 18 7/65 98 Room Air 21 06/04/17 20:17 68 112/65 06/04/17 20:00 97.7 61 18 109/64 98 Room Air 21 06/04/17 20:00 64 06/04/17 19:00 68 18 21 06/04/17 16:00 56 06/04/17 16:00 97.0 58 20 111/71 94 Room Air Intake and Output 06/05/17 06/06/17 19:00 07:00 Intake Total 89.16 ml Balance 89.16 ml IV Total 89.16 ml General Appearance: WD/WN HEENT: normocephalic, anicteric Respiratory/Chest: chest wall non-tender, lungs clear Cardiovascular: normal peripheral pulses, normal rate Abdomen: normal bowel sounds, soft, non tender Extremities: no cyanosis, no clubbing Skin: no rash Laboratory Tests 06/04/17 16:50: Activated Partial Thromboplast Time 50H 06/04/17 23:40: Activated Partial Thromboplast Time 129H, Troponin I 0.050 06/05/17 08:30: Activated Partial Thromboplast Time 79H, White Blood Count 4.7L, Red Blood Count 3.80L, Hemoglobin 11.5L, Hematocrit 35.1L, Mean Corpuscular Volume 92, Mean Corpuscular Hemoglobin 30.1, Mean Corpuscular Hemoglobin Concent 32.6, Red Cell Distribution Width 12.8, Platelet Count 166, Mean Platelet Volume 9.4, Neutrophils (%) (Auto) 65.3, Lymphocytes (%) (Auto) 24.6, Monocytes (%) (Auto) 8.3, Eosinophils (%) (Auto) 0.6, Basophils (%) (Auto) 1.2, Sodium Level 136, Potassium Level 4.3, Chloride Level 104, Carbon Dioxide Level 24, Anion Gap 8, Blood Urea Nitrogen 6L, Creatinine 1.4H, Estimat Glomerular Filtration Rate 51.3 , Glucose Level 96, Calcium Level 8.7, Pro-B-Type Natriuretic Peptide 98 Current Medications Medications (Trade) Dose Ordered Sig/Vilma Route PRN Reason Start Time Stop Time Status Last Admin Dose Admin Acetaminophen (Tylenol) 650 mg Q4H PRN ORAL FEVER 06/02/17 21:15 07/02/17 21:14 Albuterol/ Ipratropium (Albuterol/ Ipratropium) 3 ml Q4H PRN HHN Shortness of Breath 06/02/17 21:15 06/07/17 21:14 Amiodarone HCl (Cordarone) 200 mg DAILY ORAL 06/03/17 09:00 07/03/17 08:59 06/05/17 08:53 Aspirin (ASA) 162 mg DAILY ORAL 06/03/17 09:00 07/03/17 08:59 06/05/17 08:53 Carvedilol (Coreg) 3.125 mg EVERY 12 HOURS ORAL 06/03/17 09:00 07/03/17 08:59 06/05/17 08:52 Chlorhexidine Gluconate (Genesis-Hex 2%) 1 applic QD@1999 TOPIC 06/05/17 20:00 07/05/17 19:59 UNV Clonazepam (KlonoPIN) 0.5 mg BEDTIME ORAL 06/02/17 22:00 06/09/17 21:59 06/04/17 20:16 Dextrose (Dextrose 50%) STAT PRN IV Hypoglycemia 06/02/17 21:15 07/02/17 21:14 Diltiazem HCl (Cardizem) 10 mg Q1H PRN IV heart rate more than 120, 06/02/17 21:15 07/02/17 21:14 Gabapentin (Neurontin) 300 mg THREE TIMES A DAY ORAL 06/03/17 09:00 07/03/17 08:59 06/05/17 08:53 Heparin Sodium/ Dextrose 500 ml @ 14.86 mls/ hr Q24H IV 06/05/17 01:45 07/05/17 01:44 06/05/17 01:42 Heparin Sodium/ Sodium Chloride (Heparin 2000 units/Ns 1000ml premix) 2,000 unit ONCE PRN INJ PICC LINE PLACEMENT 06/05/17 13:15 06/06/17 23:59 Insulin Aspart (NovoLOG) BEFORE MEALS AND HS SUBQ 06/03/17 06:30 07/03/17 06:29 Ketorolac Tromethamine (Toradol 30mg) 30 mg Q6H PRN IV moderate pain ( 4-6) 06/02/17 21:15 06/07/17 21:14 06/04/17 01:17 Lidocaine HCl (Xylocaine 1% 30ml) 30 ml ONCE PRN INJ PICC LINE PLACEMENT 06/05/17 13:15 06/06/17 23:59 Lisinopril (Zestril) 2.5 mg DAILY ORAL 06/04/17 09:00 07/04/17 08:59 06/05/17 08:52 Morphine Sulfate (Morphine 5mg/ 2.5ml Oral Soln) 6 mg Q4H PRN ORAL SEVERE PAIN, IF ABLE TO TAKE O 06/03/17 15:45 07/03/17 15:44 Nitroglycerin (Ntg) 0.4 mg Every 5 Minutes PRN SL Prn Chest Pain 06/02/17 21:15 07/02/17 21:14 Ondansetron HCl (Zofran) 4 mg Q6H PRN IVP Nausea & Vomiting 06/02/17 21:15 07/02/17 21:14 Pantoprazole (Protonix) 40 mg DAILY ORAL 06/03/17 09:00 07/03/17 08:59 06/05/17 08:52 Polyethylene Glycol (Miralax) 17 gm DAILYPRN PRN ORAL Constipation 06/02/17 21:15 07/02/17 21:14 Temazepam (Restoril) 15 mg HSPRN PRN ORAL Insomnia 06/02/17 21:15 06/09/17 21:14 DEBORAH JACKSON Jun 05, 2017 13:19
--- NOTE | 2017-06-05 14:06 | Cardiac Electrophysiology PN ---
Assessment/Plan Assessment/Plan 1. Status post [facility] defibrillator implantation. Defibrillator was interrogated and showed normal function. 2. Paroxysmal atrial fibrillation. The patient is on aspirin, amiodarone, and Coreg 3.125 mg b.i.d. that would be continued. ICD interrogation showed episodes of SVT longest 2.5 minutes but not atrial fib. 3. Chest pain. Troponin levels are flat. Further evaluation by Dr. Rodriguez. 4. Cardiomyopathy, on lisinopril 2.5 mg daily and Coreg 3.125 mg b.i.d.ECho EF 45% and her EKG showed sinus rhythm with nonspecific T-wave abnormality. SRIDHAR RN and Dr Rodriguez Subjective Subjective Feeling better. No arrhythmias on tele. SJ ICD was interrogated and showed episodes of SVT. Objective Last 24 Hour Vital Signs Date Time Temp Pulse Resp B/P (MAP) Pulse Ox O2 Delivery O2 Flow Rate FiO2 06/05/17 12:00 59 06/05/17 12:00 97.5 61 21 107/67 98 Room Air 06/05/17 08:52 114/75 06/05/17 08:52 65 114/75 06/05/17 08:00 62 06/05/17 08:00 65 18 21 06/05/17 08:00 97.7 60 20 114/75 99 Room Air 06/05/17 04:00 97.0 95 18 110/65 100 Room Air 21 06/05/17 04:00 60 06/05/17 00:00 60 06/05/17 00:00 97.0 18 18 7/65 98 Room Air 21 06/04/17 20:17 68 112/65 06/04/17 20:00 97.7 61 18 109/64 98 Room Air 21 06/04/17 20:00 64 06/04/17 19:00 68 18 21 06/04/17 16:00 56 06/04/17 16:00 97.0 58 20 111/71 94 Room Air Intake and Output 06/05/17 06/06/17 19:00 07:00 Intake Total 104.02 ml Balance 104.02 ml IV Total 104.02 ml Laboratory Tests Test 06/04/17 16:50 06/04/17 23:40 06/05/17 08:30 Activated Partial Thromboplast Time 50 SEC (23-33) H 129 SEC (23-33) H 79 SEC (23-33) H Troponin I 0.050 ng/mL (0.000-0.056) White Blood Count 4.7 K/UL (4.8-10.8) L Red Blood Count 3.80 M/UL (4.20-5.40) L Hemoglobin 11.5 G/DL (12.0-16.0) L Hematocrit 35.1 % (37.0-47.0) L Mean Corpuscular Volume 92 FL (80-99) Mean Corpuscular Hemoglobin 30.1 PG (27.0-31.0) Mean Corpuscular Hemoglobin Concent 32.6 G/DL (32.0-36.0) Red Cell Distribution Width 12.8 % (11.6-14.8) Platelet Count 166 K/UL (150-450) Mean Platelet Volume 9.4 FL (6.5-10.1) Neutrophils (%) (Auto) 65.3 % (45.0-75.0) Lymphocytes (%) (Auto) 24.6 % (20.0-45.0) Monocytes (%) (Auto) 8.3 % (1.0-10.0) Eosinophils (%) (Auto) 0.6 % (0.0-3.0) Basophils (%) (Auto) 1.2 % (0.0-2.0) Sodium Level 136 MMOL/L (136-145) Potassium Level 4.3 MMOL/L (3.5-5.1) Chloride Level 104 MMOL/L (98-107) Carbon Dioxide Level 24 MMOL/L (21-32) Anion Gap 8 mmol/L (5-15) Blood Urea Nitrogen 6 mg/dL (7-18) L Creatinine 1.4 MG/DL (0.55-1.30) H Estimat Glomerular Filtration Rate 51.3 mL/min (>60) Glucose Level 96 MG/DL (74-106) Calcium Level 8.7 MG/DL (8.5-10.1) Pro-B-Type Natriuretic Peptide 98 pg/mL (0-125) Objective HEAD AND NECK: No JVD. LUNGS: Clear. CARDIOVASCULAR: Regular S1 and S2 with no gallop. ABDOMEN: Soft. EXTREMITIES: No pitting edema. Defibrillator in left subclavian is intact. DIMITRIS PEDRO Jun 05, 2017 14:06
[2017-06-05 16:00] VITALS: BP 101/68
[2017-06-05] MEDS: Ketorolac 30mg Inj IV PRN (16:27)
[2017-06-05 20:00] VITALS: BP 116/72
[2017-06-05] MEDS: Dyna-Hex 2% Top Sol 2oz TOPIC SCH (20:00)
[2017-06-05] MEDS: clonazePAM 0.5mg tab ORAL SCH (20:20)
[2017-06-06] VITALS: BP 90/51
[2017-06-06 04:00] VITALS: BP 90/60
[2017-06-06 06:10] LABS: HEMATOCRIT 35.9 % (37.0-47.0); HEMOGLOBIN 11.7 G/DL (12.0-16.0); MEAN CORPUSCULAR VOLUME 93 FL (80-99); PLATELET COUNT 71 K/UL (150-450); RED BLOOD COUNT 3.87 M/UL (4.20-5.40); RED CELL DISTRIBUTION WIDTH 12.8 % (11.6-14.8)
[2017-06-06] MEDS: NovoLOG Insulin Flexpen SUBQ SCH (06:28)
[2017-06-06 06:43] LABS: ANION GAP 9 mmol/L (5-15); BLOOD UREA NITROGEN 7 mg/dL (7-18); CALCIUM 8.9 MG/DL (8.5-10.1); CARBON DIOXIDE 24 MMOL/L (21-32); CHLORIDE 103 MMOL/L (98-107); CREATININE 1.4 MG/DL (0.55-1.30); POTASSIUM 4.1 MMOL/L (3.5-5.1); SODIUM 136 MMOL/L (136-145)
[2017-06-06] MEDS ORDERED: Heparin 25,000 units/D5W 500ml (ACS/MI) IV SCH (06:45)
[2017-06-06] MEDS ORDERED: Heparin 5000 units/ml inj IV ONE (06:45)
[2017-06-06 08:00] VITALS: BP 100/64
[2017-06-06] MEDS: Lisinopril 2.5mg tab ORAL SCH (08:18)
[2017-06-06] MEDS: Aspirin Baby 81mg ORAL SCH (08:20)
[2017-06-06] MEDS: Amiodarone 200mg tab ORAL SCH (08:20)
[2017-06-06] MEDS: Ketorolac 30mg Inj IV PRN (08:21)
--- NOTE | 2017-06-06 10:08 | Pulmonology Progress Note ---
Assessment/Plan Problems: (1) ACS (acute coronary syndrome) (2) Cardiomyopathy (3) AICD (automatic cardioverter/defibrillator) present (4) HTN (hypertension) (5) Cerebral vascular disease Assessment/Plan ptl decreasing, will hold heparin needs stress test, d/w Dr. Woodard symptomatic treatment f/u troponin, negative now Subjective ROS Limited/Unobtainable: No Constitutional: Reports: no symptoms HEENT: Repors: no symptoms Respiratory: Reports: no symptoms Cardiovascular: Reports: no symptoms Allergies: Coded Allergies: No Known Allergies (Unverified , 05/15/15) Objective Last 24 Hour Vital Signs Date Time Temp Pulse Resp B/P (MAP) Pulse Ox O2 Delivery O2 Flow Rate FiO2 06/06/17 08:18 100/64 06/06/17 08:17 64 100/64 06/06/17 08:00 66 06/06/17 08:00 97.5 64 20 100/64 97 Room Air 06/06/17 07:57 89 18 Room Air 21 06/06/17 04:00 55 06/06/17 04:00 97.9 61 16 90/60 98 Room Air 21 06/06/17 00:00 97.9 59 16 90/51 98 Room Air 21 06/06/17 00:00 58 06/05/17 20:20 65 115/64 06/05/17 20:00 97.9 60 18 116/72 99 Room Air 21 06/05/17 20:00 62 06/05/17 19:37 62 18 Room Air 06/05/17 16:00 62 06/05/17 16:00 97.9 60 21 101/68 99 Room Air 06/05/17 12:00 59 06/05/17 12:00 97.5 61 21 107/67 98 Room Air General Appearance: WD/WN HEENT: normocephalic, atraumatic Respiratory/Chest: chest wall non-tender Cardiovascular: normal peripheral pulses, normal rate Abdomen: normal bowel sounds, soft, non tender Genitourinary: normal external genitalia Extremities: no cyanosis Skin: no rash 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 Laboratory Tests 06/06/17 05:30: White Blood Count 5.0, Red Blood Count 3.87L, Hemoglobin 11.7L, Hematocrit 35.9L , Mean Corpuscular Volume 93, Mean Corpuscular Hemoglobin 30.3, Mean Corpuscular Hemoglobin Concent 32.6, Red Cell Distribution Width 12.8, Platelet Count 71#L, Mean Platelet Volume 12.0H, Neutrophils (%) (Auto) , Lymphocytes (% ) (Auto) , Monocytes (%) (Auto) , Eosinophils (%) (Auto) , Basophils (%) (Auto) , Differential Total Cells Counted 100, Neutrophils % (Manual) 55, Lymphocytes % (Manual) 38, Monocytes % (Manual) 7, Eosinophils % (Manual) 0, Basophils % ( Manual) 0, Band Neutrophils 0, Platelet Estimate Adequate, Platelet Morphology Normal, Clumped Platelets 3+, Activated Partial Thromboplast Time 46H, Sodium Level 136, Potassium Level 4.1, Chloride Level 103, Carbon Dioxide Level 24, Anion Gap 9, Blood Urea Nitrogen 7, Creatinine 1.4H, Estimat Glomerular Filtration Rate 51.3, Glucose Level 74, Calcium Level 8.9 Current Medications Medications (Trade) Dose Ordered Sig/Vilma Route PRN Reason Start Time Stop Time Status Last Admin Dose Admin Acetaminophen (Tylenol) 650 mg Q4H PRN ORAL FEVER 06/02/17 21:15 07/02/17 21:14 Albuterol/ Ipratropium (Albuterol/ Ipratropium) 3 ml Q4H PRN HHN Shortness of Breath 06/02/17 21:15 06/07/17 21:14 Amiodarone HCl (Cordarone) 200 mg DAILY ORAL 06/03/17 09:00 07/03/17 08:59 06/06/17 08:20 Aspirin (ASA) 162 mg DAILY ORAL 06/03/17 09:00 07/03/17 08:59 06/06/17 08:20 Carvedilol (Coreg) 3.125 mg EVERY 12 HOURS ORAL 06/03/17 09:00 07/03/17 08:59 06/05/17 20:20 Chlorhexidine Gluconate (Genesis-Hex 2%) 1 applic DAILY@1999 TOPIC 06/05/17 20:00 07/05/17 19:59 Clonazepam (KlonoPIN) 0.5 mg BEDTIME ORAL 06/02/17 22:00 06/09/17 21:59 06/05/17 20:20 Dextrose (Dextrose 50%) STAT PRN IV Hypoglycemia 06/02/17 21:15 07/02/17 21:14 Diltiazem HCl (Cardizem) 10 mg Q1H PRN IV heart rate more than 120, 06/02/17 21:15 07/02/17 21:14 Gabapentin (Neurontin) 300 mg THREE TIMES A DAY ORAL 06/03/17 09:00 07/03/17 08:59 06/06/17 08:20 Heparin Sodium/ Sodium Chloride (Heparin 2000 units/Ns 1000ml premix) 2,000 unit ONCE PRN INJ PICC LINE PLACEMENT 06/05/17 13:15 06/06/17 23:59 Ketorolac Tromethamine (Toradol 30mg) 30 mg Q6H PRN IV moderate pain ( 4-6) 06/02/17 21:15 06/07/17 21:14 06/06/17 08:21 Lidocaine HCl (Xylocaine 1% 30ml) 30 ml ONCE PRN INJ PICC LINE PLACEMENT 06/05/17 13:15 06/06/17 23:59 Lisinopril (Zestril) 2.5 mg DAILY ORAL 06/04/17 09:00 07/04/17 08:59 06/05/17 08:52 Morphine Sulfate (Morphine 5mg/ 2.5ml Oral Soln) 6 mg Q4H PRN ORAL SEVERE PAIN, IF ABLE TO TAKE O 06/03/17 15:45 07/03/17 15:44 Nitroglycerin (Ntg) 0.4 mg Every 5 Minutes PRN SL Prn Chest Pain 06/02/17 21:15 07/02/17 21:14 Ondansetron HCl (Zofran) 4 mg Q6H PRN IVP Nausea & Vomiting 06/02/17 21:15 07/02/17 21:14 Pantoprazole (Protonix) 40 mg DAILY ORAL 06/03/17 09:00 07/03/17 08:59 06/06/17 08:20 Polyethylene Glycol (Miralax) 17 gm DAILYPRN PRN ORAL Constipation 06/02/17 21:15 07/02/17 21:14 Temazepam (Restoril) 15 mg HSPRN PRN ORAL Insomnia 06/02/17 21:15 06/09/17 21:14 DEBORAH JACKSON Jun 06, 2017 10:08
[2017-06-06 12:00] VITALS: BP 117/76
[2017-06-06] MEDS: Morphine 5mg/2.5ml Oral Soln ORAL PRN (15:02)
--- NOTE | 2017-06-06 15:12 | Internal Med Progress Note ---
Subjective Date of Service: Jun 06, 2017 Physician Name Kathy Campuzano Attending Physician Ángel Almonte MD Current Medications Medications (Trade) Dose Ordered Sig/Vilma Route PRN Reason Start Time Stop Time Status Last Admin Dose Admin Acetaminophen (Tylenol) 650 mg Q4H PRN ORAL FEVER 06/02/17 21:15 07/02/17 21:14 Albuterol/ Ipratropium (Albuterol/ Ipratropium) 3 ml Q4H PRN HHN Shortness of Breath 06/02/17 21:15 06/07/17 21:14 Amiodarone HCl (Cordarone) 200 mg DAILY ORAL 06/03/17 09:00 07/03/17 08:59 06/06/17 08:20 Aspirin (ASA) 162 mg DAILY ORAL 06/03/17 09:00 07/03/17 08:59 06/06/17 08:20 Carvedilol (Coreg) 3.125 mg EVERY 12 HOURS ORAL 06/03/17 09:00 07/03/17 08:59 06/05/17 20:20 Chlorhexidine Gluconate (Genesis-Hex 2%) 1 applic DAILY@2000 TOPIC 06/05/17 20:00 07/05/17 19:59 Clonazepam (KlonoPIN) 0.5 mg BEDTIME ORAL 06/02/17 22:00 06/09/17 21:59 06/05/17 20:20 Dextrose (Dextrose 50%) STAT PRN IV Hypoglycemia 06/02/17 21:15 07/02/17 21:14 Diltiazem HCl (Cardizem) 10 mg Q1H PRN IV heart rate more than 120, 06/02/17 21:15 07/02/17 21:14 Gabapentin (Neurontin) 300 mg THREE TIMES A DAY ORAL 06/03/17 09:00 07/03/17 08:59 06/06/17 14:14 Heparin Sodium/ Sodium Chloride (Heparin 2000 units/Ns 1000ml premix) 2,000 unit ONCE PRN INJ PICC LINE PLACEMENT 06/05/17 13:15 06/06/17 23:59 Ketorolac Tromethamine (Toradol 30mg) 30 mg Q6H PRN IV moderate pain ( 4-6) 06/02/17 21:15 06/07/17 21:14 06/06/17 08:21 Lidocaine HCl (Xylocaine 1% 30ml) 30 ml ONCE PRN INJ PICC LINE PLACEMENT 06/05/17 13:15 06/06/17 23:59 Lisinopril (Zestril) 2.5 mg DAILY ORAL 06/04/17 09:00 07/04/17 08:59 06/05/17 08:52 Morphine Sulfate (Morphine 5mg/ 2.5ml Oral Soln) 6 mg Q4H PRN ORAL SEVERE PAIN, IF ABLE TO TAKE O 06/03/17 15:45 07/03/17 15:44 06/06/17 15:02 Nitroglycerin (Ntg) 0.4 mg Every 5 Minutes PRN SL Prn Chest Pain 06/02/17 21:15 07/02/17 21:14 Ondansetron HCl (Zofran) 4 mg Q6H PRN IVP Nausea & Vomiting 06/02/17 21:15 07/02/17 21:14 Pantoprazole (Protonix) 40 mg DAILY ORAL 06/03/17 09:00 07/03/17 08:59 06/06/17 08:20 Polyethylene Glycol (Miralax) 17 gm DAILYPRN PRN ORAL Constipation 06/02/17 21:15 07/02/17 21:14 Temazepam (Restoril) 15 mg HSPRN PRN ORAL Insomnia 06/02/17 21:15 06/09/17 21:14 Allergies: Coded Allergies: No Known Allergies (Unverified , 05/15/15) ROS Limited/Unobtainable: No Constitutional: Reports: no symptoms HEENT: Reports: no symptoms Cardiovascular: Reports: chest pain Respiratory: Reports: no symptoms Gastrointestinal/Abdominal: Reports: no symptoms Genitourinary: Reports: no symptoms Neurologic/Psychiatric: Reports: no symptoms Subjective 37 YO F admitted with chest pain. Cover for Int Christopher-Dr Almonte. Objective Last Vital Signs Date Time Temp Pulse Resp B/P (MAP) Pulse Ox O2 Delivery O2 Flow Rate FiO2 06/06/17 12:00 97.6 62 20 117/76 97 Room Air 06/06/17 07:57 21 Laboratory Tests Test 06/06/17 05:30 White Blood Count 5.0 K/UL (4.8-10.8) Red Blood Count 3.87 M/UL (4.20-5.40) L Hemoglobin 11.7 G/DL (12.0-16.0) L Hematocrit 35.9 % (37.0-47.0) L Mean Corpuscular Volume 93 FL (80-99) Mean Corpuscular Hemoglobin 30.3 PG (27.0-31.0) Mean Corpuscular Hemoglobin Concent 32.6 G/DL (32.0-36.0) Red Cell Distribution Width 12.8 % (11.6-14.8) Platelet Count 71 K/UL (150-450) #L Mean Platelet Volume 12.0 FL (6.5-10.1) H Neutrophils (%) (Auto) % (45.0-75.0) Lymphocytes (%) (Auto) % (20.0-45.0) Monocytes (%) (Auto) % (1.0-10.0) Eosinophils (%) (Auto) % (0.0-3.0) Basophils (%) (Auto) % (0.0-2.0) Differential Total Cells Counted 100 Neutrophils % (Manual) 55 % (45-75) Lymphocytes % (Manual) 38 % (20-45) Monocytes % (Manual) 7 % (1-10) Eosinophils % (Manual) 0 % (0-3) Basophils % (Manual) 0 % (0-2) Band Neutrophils 0 % (0-8) Platelet Estimate Adequate Platelet Morphology Normal Clumped Platelets 3+ Activated Partial Thromboplast Time 46 SEC (23-33) H Sodium Level 136 MMOL/L (136-145) Potassium Level 4.1 MMOL/L (3.5-5.1) Chloride Level 103 MMOL/L (98-107) Carbon Dioxide Level 24 MMOL/L (21-32) Anion Gap 9 mmol/L (5-15) Blood Urea Nitrogen 7 mg/dL (7-18) Creatinine 1.4 MG/DL (0.55-1.30) H Estimat Glomerular Filtration Rate 51.3 mL/min (>60) Glucose Level 74 MG/DL (74-106) Calcium Level 8.9 MG/DL (8.5-10.1) Objective General Appearance: WD/WN, no apparent distress, alert EENT: PERRL/EOMI, normal ENT inspection, TMs normal Neck: non-tender, normal alignment, supple Cardiovascular: normal peripheral pulses, normal rate, regular rhythm, no gallop/murmur, no JVD Respiratory/Chest: chest wall non-tender, lungs clear, normal breath sounds, no respiratory distress, no accessory muscle use Abdomen: normal bowel sounds, non tender, soft, no organomegaly, no mass Extremities: normal range of motion, non-tender 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 (2) ACS (acute coronary syndrome) (3) CAD (coronary artery disease) (4) Chest pain (5) HTN (hypertension) Assessment & Plan: Cont coreg and lisinopril (6) Cerebral vascular disease (7) Left hemiparesis (8) Hypercholesteremia (9) Asthma (10) AICD (automatic cardioverter/defibrillator) present Assessment & Plan: See EP cardiology note. KATHY CAMPUZANO Jun 06, 2017 15:12
[2017-06-06 16:00] VITALS: BP 118/75
--- NOTE | 2017-06-06 16:48 | Cardiology Progress Note ---
Assessment/Plan Assessment/Plan 1. Atypical chest pain. 2. Nonspecific abnormal cardiac enzymes. 3. Mild renal insufficiency. 4. Abnormal liver function tests. 5. History of stroke. 6. History of intracardiac defibrillator implantation. 7. thrombocytopenia trop now remain normal still with ron whitlock today with her prior hs will need ischemia eval again sched for wednesday i have discussed with pt stress test in am i stopped heparin a plt dropped will repeat cbc may need hem evla Subjective Cardiovascular: Reports: chest pain - better , Denies: lightheadedness Respiratory: Denies: orthopnea, shortness of breath Gastrointestinal/Abdominal: Denies: abdominal pain Genitourinary: Denies: burning Objective Last 24 Hour Vital Signs Date Time Temp Pulse Resp B/P (MAP) Pulse Ox O2 Delivery O2 Flow Rate FiO2 06/06/17 12:00 97.6 62 20 117/76 97 Room Air 06/06/17 12:00 61 06/06/17 08:18 100/64 06/06/17 08:17 64 100/64 06/06/17 08:00 66 06/06/17 08:00 97.5 64 20 100/64 97 Room Air 06/06/17 07:57 89 18 Room Air 21 06/06/17 04:00 55 06/06/17 04:00 97.9 61 16 90/60 98 Room Air 21 06/06/17 00:00 97.9 59 16 90/51 98 Room Air 21 06/06/17 00:00 58 06/05/17 20:20 65 115/64 06/05/17 20:00 97.9 60 18 116/72 99 Room Air 21 06/05/17 20:00 62 06/05/17 19:37 62 18 Room Air General Appearance: no apparent distress Neck: supple Cardiovascular: normal rate, regular rhythm Respiratory/Chest: lungs clear, normal breath sounds Abdomen: normal bowel sounds, non tender, soft Extremities: no swelling Laboratory Tests Test 06/06/17 05:30 White Blood Count 5.0 K/UL (4.8-10.8) Red Blood Count 3.87 M/UL (4.20-5.40) L Hemoglobin 11.7 G/DL (12.0-16.0) L Hematocrit 35.9 % (37.0-47.0) L Mean Corpuscular Volume 93 FL (80-99) Mean Corpuscular Hemoglobin 30.3 PG (27.0-31.0) Mean Corpuscular Hemoglobin Concent 32.6 G/DL (32.0-36.0) Red Cell Distribution Width 12.8 % (11.6-14.8) Platelet Count 71 K/UL (150-450) #L Mean Platelet Volume 12.0 FL (6.5-10.1) H Neutrophils (%) (Auto) % (45.0-75.0) Lymphocytes (%) (Auto) % (20.0-45.0) Monocytes (%) (Auto) % (1.0-10.0) Eosinophils (%) (Auto) % (0.0-3.0) Basophils (%) (Auto) % (0.0-2.0) Differential Total Cells Counted 100 Neutrophils % (Manual) 55 % (45-75) Lymphocytes % (Manual) 38 % (20-45) Monocytes % (Manual) 7 % (1-10) Eosinophils % (Manual) 0 % (0-3) Basophils % (Manual) 0 % (0-2) Band Neutrophils 0 % (0-8) Platelet Estimate Adequate Platelet Morphology Normal Clumped Platelets 3+ Activated Partial Thromboplast Time 46 SEC (23-33) H Sodium Level 136 MMOL/L (136-145) Potassium Level 4.1 MMOL/L (3.5-5.1) Chloride Level 103 MMOL/L (98-107) Carbon Dioxide Level 24 MMOL/L (21-32) Anion Gap 9 mmol/L (5-15) Blood Urea Nitrogen 7 mg/dL (7-18) Creatinine 1.4 MG/DL (0.55-1.30) H Estimat Glomerular Filtration Rate 51.3 mL/min (>60) Glucose Level 74 MG/DL (74-106) Calcium Level 8.9 MG/DL (8.5-10.1) PRIETO SORENSEN Jun 06, 2017 16:48
--- NOTE | 2017-06-06 17:15 | Cardiac Electrophysiology PN ---
Assessment/Plan Assessment/Plan 1. Status post [facility] defibrillator implantation that was interrogated and showed normal function except for some episodes of SVT. 2. Paroxysmal atrial fibrillation. The patient is on aspirin, amiodarone, and Coreg 3.125 mg b.i.d. that would be continued. ICD interrogation showed episodes of SVT longest 2.5 minutes but not atrial fib. 3. Chest pain. Troponin levels are flat. Further evaluation by Dr. Rodriguez.Stress test in am. 4. Cardiomyopathy, on lisinopril 2.5 mg daily and Coreg 3.125 mg b.i.d.ECho EF 45% and her EKG showed sinus rhythm with nonspecific T-wave abnormality. DW RN Subjective Subjective Feeling better. Mildly bradycardic. SJ ICD was interrogated and showed episodes of SVT. Objective Last 24 Hour Vital Signs Date Time Temp Pulse Resp B/P (MAP) Pulse Ox O2 Delivery O2 Flow Rate FiO2 06/06/17 16:00 57 06/06/17 16:00 97.7 64 19 118/75 99 Room Air 06/06/17 12:00 97.6 62 20 117/76 97 Room Air 06/06/17 12:00 61 06/06/17 08:18 100/64 06/06/17 08:17 64 100/64 06/06/17 08:00 66 06/06/17 08:00 97.5 64 20 100/64 97 Room Air 06/06/17 07:57 89 18 Room Air 06/06/17 04:00 55 06/06/17 04:00 97.9 61 16 90/60 98 Room Air 21 06/06/17 00:00 97.9 59 16 90/51 98 Room Air 21 06/06/17 00:00 58 06/05/17 20:20 65 115/64 06/05/17 20:00 97.9 60 18 116/72 99 Room Air 21 06/05/17 20:00 62 06/05/17 19:37 62 18 Room Air Laboratory Tests Test 06/06/17 05:30 06/06/17 16:50 White Blood Count 5.0 K/UL (4.8-10.8) Pending Red Blood Count 3.87 M/UL (4.20-5.40) L Pending Hemoglobin 11.7 G/DL (12.0-16.0) L Pending Hematocrit 35.9 % (37.0-47.0) L Pending Mean Corpuscular Volume 93 FL (80-99) Pending Mean Corpuscular Hemoglobin 30.3 PG (27.0-31.0) Pending Mean Corpuscular Hemoglobin Concent 32.6 G/DL (32.0-36.0) Pending Red Cell Distribution Width 12.8 % (11.6-14.8) Pending Platelet Count 71 K/UL (150-450) #L Pending Mean Platelet Volume 12.0 FL (6.5-10.1) H Pending Neutrophils (%) (Auto) % (45.0-75.0) Pending Lymphocytes (%) (Auto) % (20.0-45.0) Pending Monocytes (%) (Auto) % (1.0-10.0) Pending Eosinophils (%) (Auto) % (0.0-3.0) Pending Basophils (%) (Auto) % (0.0-2.0) Pending Differential Total Cells Counted 100 Neutrophils % (Manual) 55 % (45-75) Lymphocytes % (Manual) 38 % (20-45) Monocytes % (Manual) 7 % (1-10) Eosinophils % (Manual) 0 % (0-3) Basophils % (Manual) 0 % (0-2) Band Neutrophils 0 % (0-8) Platelet Estimate Adequate Platelet Morphology Normal Clumped Platelets 3+ Activated Partial Thromboplast Time 46 SEC (23-33) H Sodium Level 136 MMOL/L (136-145) Potassium Level 4.1 MMOL/L (3.5-5.1) Chloride Level 103 MMOL/L (98-107) Carbon Dioxide Level 24 MMOL/L (21-32) Anion Gap 9 mmol/L (5-15) Blood Urea Nitrogen 7 mg/dL (7-18) Creatinine 1.4 MG/DL (0.55-1.30) H Estimat Glomerular Filtration Rate 51.3 mL/min (>60) Glucose Level 74 MG/DL (74-106) Calcium Level 8.9 MG/DL (8.5-10.1) Objective HEAD AND NECK: No JVD. LUNGS: Clear. CARDIOVASCULAR: Regular S1 and S2 with no gallop. Defibrillator in left subclavian is intact. ABDOMEN: Soft. EXTREMITIES: No pitting edema. DIMITRIS PEDRO Jun 06, 2017 17:15
[2017-06-06 17:26] LABS: BASOPHILS % (AUTO) 1.2 % (0.0-2.0); EOSINOPHILS % (AUTO) 0.6 % (0.0-3.0); HEMATOCRIT 34.9 % (37.0-47.0); HEMOGLOBIN 11.3 G/DL (12.0-16.0); MEAN CORPUSCULAR VOLUME 92 FL (80-99); MONOCYTES % (AUTO) 10.3 % (1.0-10.0); NEUTROPHILS % (AUTO) 55.9 % (45.0-75.0); PLATELET COUNT 150 K/UL (150-450); RED CELL DISTRIBUTION WIDTH 12.8 % (11.6-14.8); WHITE BLOOD COUNT 4.1 K/UL (4.8-10.8)
[2017-06-06 20:00] VITALS: BP 107/65
[2017-06-06] MEDS: Dyna-Hex 2% Top Sol 2oz TOPIC SCH (20:10)
[2017-06-06] MEDS: clonazePAM 0.5mg tab ORAL SCH (20:11)
[2017-06-06] MEDS ORDERED: Heparin 5000 units/ml inj SUBQ SCH ×2 (21:00)
[2017-06-07] VITALS: BP 111/66
[2017-06-07 04:00] VITALS: BP 113/66
[2017-06-07 08:00] VITALS: BP 120/49
[2017-06-07] MEDS: Amiodarone 200mg tab ORAL SCH (08:26)
[2017-06-07] MEDS: Lisinopril 2.5mg tab ORAL SCH (08:27)
[2017-06-07] MEDS: Aspirin Baby 81mg ORAL SCH (08:27)
[2017-06-07] MEDS: Ketorolac 30mg Inj IV PRN ×2 (08:28→08:39)
--- NOTE | 2017-06-07 10:28 | Internal Med Progress Note ---
Subjective Date of Service: Jun 07, 2017 Physician Name Campuzano,Kathy Attending Physician Ángel Almonte MD Current Medications Medications (Trade) Dose Ordered Sig/Vilma Route PRN Reason Start Time Stop Time Status Last Admin Dose Admin Acetaminophen (Tylenol) 650 mg Q4H PRN ORAL FEVER 06/02/17 21:15 07/02/17 21:14 Albuterol/ Ipratropium (Albuterol/ Ipratropium) 3 ml Q4H PRN HHN Shortness of Breath 06/02/17 21:15 06/07/17 21:14 Amiodarone HCl (Cordarone) 200 mg DAILY ORAL 06/03/17 09:00 07/03/17 08:59 06/07/17 08:26 Aspirin (ASA) 162 mg DAILY ORAL 06/03/17 09:00 07/03/17 08:59 06/06/17 08:20 Carvedilol (Coreg) 3.125 mg EVERY 12 HOURS ORAL 06/03/17 09:00 07/03/17 08:59 06/06/17 20:11 Chlorhexidine Gluconate (Genesis-Hex 2%) 1 applic DAILY@2000 TOPIC 06/05/17 20:00 07/05/17 19:59 06/06/17 20:10 Clonazepam (KlonoPIN) 0.5 mg BEDTIME ORAL 06/02/17 22:00 06/09/17 21:59 06/06/17 20:11 Dextrose (Dextrose 50%) STAT PRN IV Hypoglycemia 06/02/17 21:15 07/02/17 21:14 Diltiazem HCl (Cardizem) 10 mg Q1H PRN IV heart rate more than 120, 06/02/17 21:15 07/02/17 21:14 Gabapentin (Neurontin) 300 mg THREE TIMES A DAY ORAL 06/03/17 09:00 07/03/17 08:59 06/07/17 08:26 Ketorolac Tromethamine (Toradol 30mg) 30 mg Q6H PRN IV moderate pain ( 4-6) 06/02/17 21:15 06/07/17 21:14 06/07/17 08:39 Lisinopril (Zestril) 2.5 mg DAILY ORAL 06/04/17 09:00 07/04/17 08:59 06/07/17 08:27 Morphine Sulfate (Morphine 5mg/ 2.5ml Oral Soln) 6 mg Q4H PRN ORAL SEVERE PAIN, IF ABLE TO TAKE O 06/03/17 15:45 07/03/17 15:44 06/06/17 15:02 Nitroglycerin (Ntg) 0.4 mg Every 5 Minutes PRN SL Prn Chest Pain 06/02/17 21:15 07/02/17 21:14 Ondansetron HCl (Zofran) 4 mg Q6H PRN IVP Nausea & Vomiting 06/02/17 21:15 07/02/17 21:14 Pantoprazole (Protonix) 40 mg DAILY ORAL 06/03/17 09:00 07/03/17 08:59 06/07/17 08:27 Polyethylene Glycol (Miralax) 17 gm DAILYPRN PRN ORAL Constipation 06/02/17 21:15 07/02/17 21:14 Temazepam (Restoril) 15 mg HSPRN PRN ORAL Insomnia 06/02/17 21:15 06/09/17 21:14 Allergies: Coded Allergies: No Known Allergies (Unverified , 05/15/15) ROS Limited/Unobtainable: No Constitutional: Reports: no symptoms HEENT: Reports: no symptoms Cardiovascular: Reports: chest pain Respiratory: Reports: no symptoms Gastrointestinal/Abdominal: Reports: no symptoms Genitourinary: Reports: no symptoms Neurologic/Psychiatric: Reports: no symptoms Subjective 37 YO F admitted with chest pain. Cover for Int Med-Dr Almonte. Await cardiac stress test today Objective Last Vital Signs Date Time Temp Pulse Resp B/P (MAP) Pulse Ox O2 Delivery O2 Flow Rate FiO2 06/07/17 08:40 84 18 Room Air 21 06/07/17 08:27 113/66 06/07/17 08:00 97.5 100 Laboratory Tests Test 06/06/17 16:50 White Blood Count 4.1 K/UL (4.8-10.8) L Red Blood Count 3.80 M/UL (4.20-5.40) L Hemoglobin 11.3 G/DL (12.0-16.0) L Hematocrit 34.9 % (37.0-47.0) L Mean Corpuscular Volume 92 FL (80-99) Mean Corpuscular Hemoglobin 29.8 PG (27.0-31.0) Mean Corpuscular Hemoglobin Concent 32.4 G/DL (32.0-36.0) Red Cell Distribution Width 12.8 % (11.6-14.8) Platelet Count 150 K/UL (150-450) # Mean Platelet Volume 8.8 FL (6.5-10.1) Neutrophils (%) (Auto) 55.9 % (45.0-75.0) Lymphocytes (%) (Auto) 32.0 % (20.0-45.0) Monocytes (%) (Auto) 10.3 % (1.0-10.0) H Eosinophils (%) (Auto) 0.6 % (0.0-3.0) Basophils (%) (Auto) 1.2 % (0.0-2.0) Objective General Appearance: WD/WN, no apparent distress, alert EENT: PERRL/EOMI, normal ENT inspection, TMs normal Neck: non-tender, normal alignment, supple Cardiovascular: normal peripheral pulses, normal rate, regular rhythm, no gallop/murmur, no JVD Respiratory/Chest: chest wall non-tender, lungs clear, normal breath sounds, no respiratory distress, no accessory muscle use Abdomen: normal bowel sounds, non tender, soft, no organomegaly, no mass Extremities: normal range of motion, non-tender 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 (2) ACS (acute coronary syndrome) (3) CAD (coronary artery disease) (4) Chest pain Assessment & Plan: Cardiac stress test today 06/07/17. (5) HTN (hypertension) Assessment & Plan: Cont coreg and lisinopril (6) Cerebral vascular disease (7) Left hemiparesis (8) Hypercholesteremia (9) Asthma (10) AICD (automatic cardioverter/defibrillator) present Assessment & Plan: See EP cardiology note. KATHY CAMPUZANO Jun 07, 2017 10:28
--- NOTE | 2017-06-07 11:16 | Diagnostic Imaging Report ---
Indications: Needs long-term IV access Technique: Ultrasound confirms patent compressible right basilic vein. Total sterile technique, including sterile probe cover and sterile gel, hat, mask,, sterile gown, large sterile drape, and preparation with 2% chlorhexidine utilized. Local anesthesia with 1% lidocaine. Under real-time ultrasound guidance, puncture basilic vein using 21-gauge needle, documented and archived, passage 0.018 guidewire under direct fluoroscopy, which was used to determine appropriate catheter length, exchange for 5 [place] peel-away sheath. 5 [place] Bard dual-lumen power PICC cut to cm. It was inserted through the peel-away sheath. Peel-away sheath and guidewire removed. Catheter fixed to the skin. Both catheter ports aspirated and flushed. Patient tolerated procedure well, without immediate complication. Digital radiograph documents satisfactory catheter tip position, at the cavoatrial junction. Total fluoroscopy time 0.4 minutes. Total dose area product 15 dGycm2 Impression: Successful placement of right arm PICC under sonographic and fluoroscopic guidance, as described above.
[2017-06-07 11:33] LABS: ALANINE AMINOTRANSFERASE 105 U/L (12-78); ALBUMIN 2.6 G/DL (3.4-5.0); ALBUMIN/GLOBULIN RATIO 0.7 (1.0-2.7); ALKALINE PHOSPHATASE 37 U/L (46-116); ANION GAP 7 mmol/L (5-15); ASPARTATE AMINO TRANSFERASE 100 U/L (15-37); BILIRUBIN,TOTAL 0.6 MG/DL (0.2-1.0); BLOOD UREA NITROGEN 12 mg/dL (7-18); CALCIUM 8.4 MG/DL (8.5-10.1); CARBON DIOXIDE 24 MMOL/L (21-32); CHLORIDE 102 MMOL/L (98-107); CREATININE 1.2 MG/DL (0.55-1.30); POTASSIUM 4.1 MMOL/L (3.5-5.1); SODIUM 133 MMOL/L (136-145)
[2017-06-07 12:00] VITALS: BP 142/105
[2017-06-07 12:14] LABS: HEMATOCRIT 34.1 % (37.0-47.0); HEMOGLOBIN 10.8 G/DL (12.0-16.0); MEAN CORPUSCULAR VOLUME 91 FL (80-99); RED BLOOD COUNT 3.75 M/UL (4.20-5.40); RED CELL DISTRIBUTION WIDTH 12.5 % (11.6-14.8); WHITE BLOOD COUNT 3.8 K/UL (4.8-10.8)
[2017-06-07 12:18] LABS: PLATELET COUNT 134 K/UL (150-450)
--- NOTE | 2017-06-07 12:36 | Pulmonology Progress Note ---
Assessment/Plan Problems: (1) ACS (acute coronary syndrome) (2) Cardiomyopathy (3) AICD (automatic cardioverter/defibrillator) present (4) HTN (hypertension) (5) Cerebral vascular disease (6) Thrombocytopenia Assessment/Plan stress test today needs stress test, d/w Dr. Woodard symptomatic treatment f/u troponin, negative now plt better now Subjective ROS Limited/Unobtainable: No Constitutional: Reports: no symptoms HEENT: Repors: no symptoms Respiratory: Reports: no symptoms Allergies: Coded Allergies: No Known Allergies (Unverified , 05/15/15) Objective Last 24 Hour Vital Signs Date Time Temp Pulse Resp B/P (MAP) Pulse Ox O2 Delivery O2 Flow Rate FiO2 06/07/17 12:00 97.9 59 18 142/105 100 Room Air 06/07/17 08:40 84 18 Room Air 21 06/07/17 08:27 113/66 06/07/17 08:00 97.5 60 20 120/49 100 Room Air 06/07/17 08:00 59 06/07/17 04:00 97.9 61 20 113/66 100 Room Air 06/07/17 04:00 57 06/07/17 00:00 54 06/07/17 00:00 98.0 60 18 111/66 100 Room Air 06/06/17 20:11 61 107/65 06/06/17 20:00 98.3 61 17 107/65 100 Room Air 06/06/17 20:00 60 06/06/17 20:00 98.3 61 17 107/65 100 Room Air 06/06/17 19:25 82 18 Room Air 21 06/06/17 16:00 57 06/06/17 16:00 97.7 64 19 118/75 99 Room Air HEENT: normocephalic, atraumatic Respiratory/Chest: chest wall non-tender, lungs clear Breasts: no masses Cardiovascular: normal peripheral pulses Abdomen: normal bowel sounds, soft, non tender Extremities: no cyanosis Skin: no rash Laboratory Tests 06/06/17 16:50: White Blood Count 4.1L, Red Blood Count 3.80L, Hemoglobin 11.3L, Hematocrit 34.9L, Mean Corpuscular Volume 92, Mean Corpuscular Hemoglobin 29.8, Mean Corpuscular Hemoglobin Concent 32.4, Red Cell Distribution Width 12.8, Platelet Count 150#, Mean Platelet Volume 8.8, Neutrophils (%) (Auto) 55.9, Lymphocytes ( %) (Auto) 32.0, Monocytes (%) (Auto) 10.3H, Eosinophils (%) (Auto) 0.6, Basophils (%) (Auto) 1.2 06/07/17 11:00: Sodium Level 133L, Potassium Level 4.1, Chloride Level 102, Carbon Dioxide Level 24, Anion Gap 7, Blood Urea Nitrogen 12, Creatinine 1.2, Estimat Glomerular Filtration Rate > 60, Glucose Level 71L, Calcium Level 8.4L, Total Bilirubin 0.6, Aspartate Amino Transf (AST/SGOT) 100H, Alanine Aminotransferase (ALT/SGPT) 105H, Alkaline Phosphatase 37L, Total Protein 6.1L, Albumin 2.6L, Globulin 3.5, Albumin/Globulin Ratio 0.7L 06/07/17 12:05: White Blood Count 3.8L, Red Blood Count 3.75L, Hemoglobin 10.8L, Hematocrit 34.1L, Mean Corpuscular Volume 91, Mean Corpuscular Hemoglobin 28.9, Mean Corpuscular Hemoglobin Concent 31.7L, Red Cell Distribution Width 12.5, Platelet Count 134L, Mean Platelet Volume 9.9, Neutrophils (%) (Auto) , Lymphocytes (%) (Auto) , Monocytes (%) (Auto) , Eosinophils (%) (Auto) , Basophils (%) (Auto) , Neutrophils % (Manual) [Pending], Lymphocytes % (Manual) [Pending], Platelet Estimate [Pending], Platelet Morphology [Pending] Current Medications Medications (Trade) Dose Ordered Sig/Vilma Route PRN Reason Start Time Stop Time Status Last Admin Dose Admin Acetaminophen (Tylenol) 650 mg Q4H PRN ORAL FEVER 06/02/17 21:15 07/02/17 21:14 Albuterol/ Ipratropium (Albuterol/ Ipratropium) 3 ml Q4H PRN HHN Shortness of Breath 06/02/17 21:15 06/07/17 21:14 Amiodarone HCl (Cordarone) 200 mg DAILY ORAL 06/03/17 09:00 07/03/17 08:59 06/07/17 08:26 Aspirin (ASA) 162 mg DAILY ORAL 06/03/17 09:00 07/03/17 08:59 06/06/17 08:20 Carvedilol (Coreg) 3.125 mg EVERY 12 HOURS ORAL 06/03/17 09:00 07/03/17 08:59 06/06/17 20:11 Chlorhexidine Gluconate (Genesis-Hex 2%) 1 applic DAILY@1999 TOPIC 06/05/17 20:00 07/05/17 19:59 06/06/17 20:10 Clonazepam (KlonoPIN) 0.5 mg BEDTIME ORAL 06/02/17 22:00 06/09/17 21:59 06/06/17 20:11 Dextrose (Dextrose 50%) STAT PRN IV Hypoglycemia 06/02/17 21:15 07/02/17 21:14 Diltiazem HCl (Cardizem) 10 mg Q1H PRN IV heart rate more than 120, 06/02/17 21:15 07/02/17 21:14 Gabapentin (Neurontin) 300 mg THREE TIMES A DAY ORAL 06/03/17 09:00 07/03/17 08:59 06/07/17 08:26 Heparin Sodium (Porcine) (Heparin 5000 units/ml) 5,000 units EVERY 12 HOURS SUBQ 06/07/17 21:00 07/07/17 20:59 Ketorolac Tromethamine (Toradol 30mg) 30 mg Q6H PRN IV moderate pain ( 4-6) 06/02/17 21:15 06/07/17 21:14 06/07/17 08:39 Lisinopril (Zestril) 2.5 mg DAILY ORAL 06/04/17 09:00 07/04/17 08:59 06/07/17 08:27 Morphine Sulfate (Morphine 5mg/ 2.5ml Oral Soln) 6 mg Q4H PRN ORAL SEVERE PAIN, IF ABLE TO TAKE O 06/03/17 15:45 07/03/17 15:44 06/06/17 15:02 Nitroglycerin (Ntg) 0.4 mg Every 5 Minutes PRN SL Prn Chest Pain 06/02/17 21:15 07/02/17 21:14 Ondansetron HCl (Zofran) 4 mg Q6H PRN IVP Nausea & Vomiting 06/02/17 21:15 07/02/17 21:14 Pantoprazole (Protonix) 40 mg DAILY ORAL 06/03/17 09:00 07/03/17 08:59 06/07/17 08:27 Polyethylene Glycol (Miralax) 17 gm DAILYPRN PRN ORAL Constipation 06/02/17 21:15 07/02/17 21:14 Temazepam (Restoril) 15 mg HSPRN PRN ORAL Insomnia 06/02/17 21:15 06/09/17 21:14 DEBORAH JACKSON Jun 07, 2017 12:36
[2017-06-07] MEDS ORDERED: Lexiscan 0.4mg/5ml syringe IV ONE (14:00)
--- NOTE | 2017-06-07 14:27 | Cardiac Electrophysiology PN ---
Assessment/Plan Assessment/Plan 1. Status post [facility] ICD implantation that was interrogated and showed normal function except for some episodes of SVT. 2. Paroxysmal atrial fibrillation. The patient is on aspirin, amiodarone, and Coreg 3.125 mg b.i.d. ICD interrogation showed episodes of SVT longest 2.5 minutes but not atrial fib. 3. Chest pain. Troponin levels are flat. Further evaluation by Dr. Rodriguez.Stress test in am. 4. Cardiomyopathy, on lisinopril 2.5 mg daily and Coreg 3.125 mg b.i.d.ECho EF 45%. EKG showed sinus rhythm with nonspecific T-wave abnormality. DW RN Subjective Subjective Feeling better. Complains of generalized body ache. Objective Last 24 Hour Vital Signs Date Time Temp Pulse Resp B/P (MAP) Pulse Ox O2 Delivery O2 Flow Rate FiO2 06/07/17 12:00 97.9 59 18 142/105 100 Room Air 06/07/17 08:40 84 18 Room Air 21 06/07/17 08:27 113/66 06/07/17 08:00 97.5 60 20 120/49 100 Room Air 06/07/17 08:00 59 06/07/17 04:00 97.9 61 20 113/66 100 Room Air 06/07/17 04:00 57 06/07/17 00:00 54 06/07/17 00:00 98.0 60 18 111/66 100 Room Air 06/06/17 20:11 61 107/65 06/06/17 20:00 98.3 61 17 107/65 100 Room Air 06/06/17 20:00 60 06/06/17 20:00 98.3 61 17 107/65 100 Room Air 06/06/17 19:25 82 18 Room Air 21 06/06/17 16:00 57 06/06/17 16:00 97.7 64 19 118/75 99 Room Air Laboratory Tests Test 06/06/17 16:50 06/07/17 11:00 06/07/17 12:05 White Blood Count 4.1 K/UL (4.8-10.8) L 3.8 K/UL (4.8-10.8) L Red Blood Count 3.80 M/UL (4.20-5.40) L 3.75 M/UL (4.20-5.40) L Hemoglobin 11.3 G/DL (12.0-16.0) L 10.8 G/DL (12.0-16.0) L Hematocrit 34.9 % (37.0-47.0) L 34.1 % (37.0-47.0) L Mean Corpuscular Volume 92 FL (80-99) 91 FL (80-99) Mean Corpuscular Hemoglobin 29.8 PG (27.0-31.0) 28.9 PG (27.0-31.0) Mean Corpuscular Hemoglobin Concent 32.4 G/DL (32.0-36.0) 31.7 G/DL (32.0-36.0) L Red Cell Distribution Width 12.8 % (11.6-14.8) 12.5 % (11.6-14.8) Platelet Count 150 K/UL (150-450) # 134 K/UL (150-450) L Mean Platelet Volume 8.8 FL (6.5-10.1) 9.9 FL (6.5-10.1) Neutrophils (%) (Auto) 55.9 % (45.0-75.0) % (45.0-75.0) Lymphocytes (%) (Auto) 32.0 % (20.0-45.0) % (20.0-45.0) Monocytes (%) (Auto) 10.3 % (1.0-10.0) H % (1.0-10.0) Eosinophils (%) (Auto) 0.6 % (0.0-3.0) % (0.0-3.0) Basophils (%) (Auto) 1.2 % (0.0-2.0) % (0.0-2.0) Sodium Level 133 MMOL/L (136-145) L Potassium Level 4.1 MMOL/L (3.5-5.1) Chloride Level 102 MMOL/L (98-107) Carbon Dioxide Level 24 MMOL/L (21-32) Anion Gap 7 mmol/L (5-15) Blood Urea Nitrogen 12 mg/dL (7-18) Creatinine 1.2 MG/DL (0.55-1.30) Estimat Glomerular Filtration Rate > 60 mL/min (>60) Glucose Level 71 MG/DL (74-106) L Calcium Level 8.4 MG/DL (8.5-10.1) L Total Bilirubin 0.6 MG/DL (0.2-1.0) Aspartate Amino Transf (AST/SGOT) 100 U/L (15-37) H Alanine Aminotransferase (ALT/SGPT) 105 U/L (12-78) H Alkaline Phosphatase 37 U/L (46-116) L Total Protein 6.1 G/DL (6.4-8.2) L Albumin 2.6 G/DL (3.4-5.0) L Globulin 3.5 g/dL Albumin/Globulin Ratio 0.7 (1.0-2.7) L Differential Total Cells Counted 100 Neutrophils % (Manual) 62 % (45-75) Lymphocytes % (Manual) 25 % (20-45) Monocytes % (Manual) 12 % (1-10) H Eosinophils % (Manual) 0 % (0-3) Basophils % (Manual) 1 % (0-2) Band Neutrophils 0 % (0-8) Platelet Estimate Adequate Platelet Morphology Clumped Platelets 1+ Hypochromasia 1+ Objective HEAD AND NECK: No JVD. LUNGS: Clear. CARDIOVASCULAR: Regular S1 and S2 with no gallop. Defibrillator in left subclavian is intact. ABDOMEN: Soft. EXTREMITIES: No pitting edema. DIMITRIS PEDRO Jun 07, 2017 14:27
--- NOTE | 2017-06-07 15:58 | Diagnostic Imaging Report ---
Indications: 37-year-old female with chest pain, history of prior [place] Technique: Single day single isotope protocol utilized. Initially, resting images obtained using IV administration 10.1 millicuries 99M technetium Myoview. Subsequently, patient underwent lexiscan stress testing. See cardiology report for details. During DEXA scan infusion, IV administration 32.3 mCi 99 M technetium Myoview. SPECT and planar images obtained. SPECT images gated to 8 phases of the cardiac cycle were also obtained, and reformatted into cine images for evaluation of ejection fraction. Comparison: 03/23/2016 Findings: Per cardiology report, patient experienced chest pain. Per cardiology report, resting EKG demonstrates nonspecific T-wave abnormality. Presence or absence of ST T wave changes is not recorded on the cardiology report. Imaging demonstrates no definite fixed nor vertical post stress perfusion defects. There is equivocal mild left ventricular dilatation.. Calculated post stress ejection fraction 71%. No evidence of focal wall motion abnormality Compared to prior exam, previously reported inferolateral wall/apical fixed perfusion defect is no longer evident, may have been artifactual. Previously reported possible reversible septal wall abnormality near the base is likewise not demonstrated currently Impression: Nonischemic clinical response to pharmacologic stress, per cardiology report Nonischemic electrocardiographic response to pharmacologic stress, per cardiology report No imaging findings to suggest ischemia, at level of stress achieved. Calculated post stress ejection fraction 71% Note that previously reported perfusion abnormalities are not currently evident, may have been artifactual. Correlate with prior echocardiographic and EKG findings
[2017-06-07 16:00] VITALS: BP 119/68
[2017-06-07] MEDS: Morphine 5mg/2.5ml Oral Soln ORAL PRN (17:35)
--- NOTE | 2017-06-07 18:21 | Cardiology Progress Note ---
Assessment/Plan Assessment/Plan 1. Atypical chest pain. 2. Nonspecific abnormal cardiac enzymes. 3. Mild renal insufficiency. 4. Abnormal liver function tests. 5. History of stroke. 6. History of intracardiac defibrillator implantation. 7. thrombocytopenia trop now remain normal still with cp stress test neg infact ef 70% !!! plt count fine on repeat testing yest and today dc tele Subjective Cardiovascular: Denies: chest pain Respiratory: Denies: shortness of breath Gastrointestinal/Abdominal: Denies: abdominal pain Genitourinary: Denies: burning Objective Last 24 Hour Vital Signs Date Time Temp Pulse Resp B/P (MAP) Pulse Ox O2 Delivery O2 Flow Rate FiO2 06/07/17 16:00 70 06/07/17 16:00 97.9 63 18 119/68 100 Room Air 06/07/17 12:00 97.9 59 18 142/105 100 Room Air 06/07/17 12:00 59 06/07/17 08:40 84 18 Room Air 21 06/07/17 08:27 113/66 06/07/17 08:00 97.5 60 20 120/49 100 Room Air 06/07/17 08:00 59 06/07/17 04:00 97.9 61 20 113/66 100 Room Air 06/07/17 04:00 57 06/07/17 00:00 54 06/07/17 00:00 98.0 60 18 111/66 100 Room Air 06/06/17 20:11 61 107/65 06/06/17 20:00 98.3 61 17 107/65 100 Room Air 06/06/17 20:00 60 06/06/17 20:00 98.3 61 17 107/65 100 Room Air 06/06/17 19:25 82 18 Room Air 21 General Appearance: no apparent distress, alert Neck: supple Cardiovascular: normal rate, regular rhythm Respiratory/Chest: lungs clear, normal breath sounds Abdomen: normal bowel sounds, non tender, soft Extremities: no swelling Laboratory Tests Test 06/07/17 11:00 06/07/17 12:05 Sodium Level 133 MMOL/L (136-145) L Potassium Level 4.1 MMOL/L (3.5-5.1) Chloride Level 102 MMOL/L (98-107) Carbon Dioxide Level 24 MMOL/L (21-32) Anion Gap 7 mmol/L (5-15) Blood Urea Nitrogen 12 mg/dL (7-18) Creatinine 1.2 MG/DL (0.55-1.30) Estimat Glomerular Filtration Rate > 60 mL/min (>60) Glucose Level 71 MG/DL (74-106) L Calcium Level 8.4 MG/DL (8.5-10.1) L Total Bilirubin 0.6 MG/DL (0.2-1.0) Aspartate Amino Transf (AST/SGOT) 100 U/L (15-37) H Alanine Aminotransferase (ALT/SGPT) 105 U/L (12-78) H Alkaline Phosphatase 37 U/L (46-116) L Total Protein 6.1 G/DL (6.4-8.2) L Albumin 2.6 G/DL (3.4-5.0) L Globulin 3.5 g/dL Albumin/Globulin Ratio 0.7 (1.0-2.7) L White Blood Count 3.8 K/UL (4.8-10.8) L Red Blood Count 3.75 M/UL (4.20-5.40) L Hemoglobin 10.8 G/DL (12.0-16.0) L Hematocrit 34.1 % (37.0-47.0) L Mean Corpuscular Volume 91 FL (80-99) Mean Corpuscular Hemoglobin 28.9 PG (27.0-31.0) Mean Corpuscular Hemoglobin Concent 31.7 G/DL (32.0-36.0) L Red Cell Distribution Width 12.5 % (11.6-14.8) Platelet Count 134 K/UL (150-450) L Mean Platelet Volume 9.9 FL (6.5-10.1) Neutrophils (%) (Auto) % (45.0-75.0) Lymphocytes (%) (Auto) % (20.0-45.0) Monocytes (%) (Auto) % (1.0-10.0) Eosinophils (%) (Auto) % (0.0-3.0) Basophils (%) (Auto) % (0.0-2.0) Differential Total Cells Counted 100 Neutrophils % (Manual) 62 % (45-75) Lymphocytes % (Manual) 25 % (20-45) Monocytes % (Manual) 12 % (1-10) H Eosinophils % (Manual) 0 % (0-3) Basophils % (Manual) 1 % (0-2) Band Neutrophils 0 % (0-8) Platelet Estimate Adequate Platelet Morphology Clumped Platelets 1+ Hypochromasia 1+ PRIETO SORENSEN Jun 07, 2017 18:21
[2017-06-07 20:00] VITALS: BP 127/64
[2017-06-07] MEDS: Dyna-Hex 2% Top Sol 2oz TOPIC SCH (20:48)
[2017-06-07] MEDS: clonazePAM 0.5mg tab ORAL SCH (20:49)
[2017-06-07] MEDS: Heparin 5000 units/ml inj SUBQ SCH (20:50)
[2017-06-08] VITALS: BP 116/77
[2017-06-08 04:00] VITALS: BP 149/73
[2017-06-08 05:07] LABS: HEMATOCRIT 31.7 % (37.0-47.0); HEMOGLOBIN 10.1 G/DL (12.0-16.0); MEAN CORPUSCULAR VOLUME 93 FL (80-99); PLATELET COUNT 125 K/UL (150-450); RED BLOOD COUNT 3.41 M/UL (4.20-5.40); RED CELL DISTRIBUTION WIDTH 12.8 % (11.6-14.8); WHITE BLOOD COUNT 3.4 K/UL (4.8-10.8)
[2017-06-08 05:29] LABS: ANION GAP 8 mmol/L (5-15); BLOOD UREA NITROGEN 13 mg/dL (7-18); CALCIUM 8.4 MG/DL (8.5-10.1); CARBON DIOXIDE 24 MMOL/L (21-32); CHLORIDE 104 MMOL/L (98-107); CREATININE 1.2 MG/DL (0.55-1.30); POTASSIUM 3.9 MMOL/L (3.5-5.1); SODIUM 136 MMOL/L (136-145)
[2017-06-08 08:00] VITALS: BP 138/91
[2017-06-08] MEDS: Aspirin Baby 81mg ORAL SCH (08:13)
[2017-06-08] MEDS: Amiodarone 200mg tab ORAL SCH (08:14)
[2017-06-08] MEDS: Lisinopril 2.5mg tab ORAL SCH (08:15)
[2017-06-08] MEDS: Heparin 5000 units/ml inj SUBQ SCH (08:21)
[2017-06-08] MEDS: Morphine 5mg/2.5ml Oral Soln ORAL PRN (08:35)
--- NOTE | 2017-06-08 10:37 | Cardiac Electrophysiology PN ---
Assessment/Plan Assessment/Plan 1. Status post [facility] [facility] ICD implantation that was interrogated and showed normal function except for some episodes of SVT. 2. Paroxysmal atrial fibrillation. The patient is on aspirin, amiodarone, and Coreg 3.125 mg b.i.d. ICD interrogation showed episodes of SVT longest 2.5 minutes but not atrial fib. 3. Chest pain. Troponin levels are flat. Stress test per Dr. Rodriguez was negative. 4. Cardiomyopathy, on lisinopril 2.5 mg daily and Coreg 3.125 mg b.i.d.Echo EF 45%. DW RN Subjective Subjective Complains of generalized body ache. DC planning.No SVT or VT Objective Last 24 Hour Vital Signs Date Time Temp Pulse Resp B/P (MAP) Pulse Ox O2 Delivery O2 Flow Rate FiO2 06/08/17 08:15 149/73 06/08/17 08:14 71 149/73 06/08/17 08:05 67 18 Room Air 21 06/08/17 08:00 60 06/08/17 08:00 98.1 63 20 138/91 100 Room Air 06/08/17 04:00 98.1 59 17 149/73 100 Room Air 06/08/17 04:00 71 06/08/17 00:00 62 06/08/17 00:00 98.1 61 18 116/77 98 Room Air 06/07/17 20:49 71 127/64 06/07/17 20:00 58 06/07/17 20:00 98.0 71 18 127/64 99 Room Air 06/07/17 19:30 62 18 Room Air 21 06/07/17 16:00 70 06/07/17 16:00 97.9 63 18 119/68 100 Room Air 06/07/17 12:00 97.9 59 18 142/105 100 Room Air 06/07/17 12:00 59 Laboratory Tests Test 06/07/17 11:00 06/07/17 12:05 06/08/17 04:15 Sodium Level 133 MMOL/L (136-145) L 136 MMOL/L (136-145) Potassium Level 4.1 MMOL/L (3.5-5.1) 3.9 MMOL/L (3.5-5.1) Chloride Level 102 MMOL/L (98-107) 104 MMOL/L (98-107) Carbon Dioxide Level 24 MMOL/L (21-32) 24 MMOL/L (21-32) Anion Gap 7 mmol/L (5-15) 8 mmol/L (5-15) Blood Urea Nitrogen 12 mg/dL (7-18) 13 mg/dL (7-18) Creatinine 1.2 MG/DL (0.55-1.30) 1.2 MG/DL (0.55-1.30) Estimat Glomerular Filtration Rate > 60 mL/min (>60) > 60 mL/min (>60) Glucose Level 71 MG/DL (74-106) L 69 MG/DL (74-106) L Calcium Level 8.4 MG/DL (8.5-10.1) L 8.4 MG/DL (8.5-10.1) L Total Bilirubin 0.6 MG/DL (0.2-1.0) Aspartate Amino Transf (AST/SGOT) 100 U/L (15-37) H Alanine Aminotransferase (ALT/SGPT) 105 U/L (12-78) H Alkaline Phosphatase 37 U/L (46-116) L Total Protein 6.1 G/DL (6.4-8.2) L Albumin 2.6 G/DL (3.4-5.0) L Globulin 3.5 g/dL Albumin/Globulin Ratio 0.7 (1.0-2.7) L White Blood Count 3.8 K/UL (4.8-10.8) L 3.4 K/UL (4.8-10.8) L Red Blood Count 3.75 M/UL (4.20-5.40) L 3.41 M/UL (4.20-5.40) L Hemoglobin 10.8 G/DL (12.0-16.0) L 10.1 G/DL (12.0-16.0) L Hematocrit 34.1 % (37.0-47.0) L 31.7 % (37.0-47.0) L Mean Corpuscular Volume 91 FL (80-99) 93 FL (80-99) Mean Corpuscular Hemoglobin 28.9 PG (27.0-31.0) 29.6 PG (27.0-31.0) Mean Corpuscular Hemoglobin Concent 31.7 G/DL (32.0-36.0) L 31.8 G/DL (32.0-36.0) L Red Cell Distribution Width 12.5 % (11.6-14.8) 12.8 % (11.6-14.8) Platelet Count 134 K/UL (150-450) L 125 K/UL (150-450) L Mean Platelet Volume 9.9 FL (6.5-10.1) 8.8 FL (6.5-10.1) Neutrophils (%) (Auto) % (45.0-75.0) % (45.0-75.0) Lymphocytes (%) (Auto) % (20.0-45.0) % (20.0-45.0) Monocytes (%) (Auto) % (1.0-10.0) % (1.0-10.0) Eosinophils (%) (Auto) % (0.0-3.0) % (0.0-3.0) Basophils (%) (Auto) % (0.0-2.0) % (0.0-2.0) Differential Total Cells Counted 100 Neutrophils % (Manual) 62 % (45-75) Lymphocytes % (Manual) 25 % (20-45) Monocytes % (Manual) 12 % (1-10) H Eosinophils % (Manual) 0 % (0-3) Basophils % (Manual) 1 % (0-2) Band Neutrophils 0 % (0-8) Platelet Estimate Adequate Platelet Morphology Clumped Platelets 1+ Hypochromasia 1+ Objective HEAD AND NECK: No JVD. LUNGS: Clear. CARDIOVASCULAR: Regular S1 and S2 with no gallop. Defibrillator in left subclavian is intact. ABDOMEN: Soft. EXTREMITIES: No pitting edema. DIMITRIS PEDRO Jun 08, 2017 10:37
[2017-06-08 12:00] VITALS: BP 127/87
--- NOTE | 2017-06-08 12:48 | Pulmonology Progress Note ---
Assessment/Plan Problems: (1) ACS (acute coronary syndrome) (2) Cardiomyopathy (3) AICD (automatic cardioverter/defibrillator) present (4) HTN (hypertension) (5) Cerebral vascular disease (6) Thrombocytopenia Assessment/Plan stress test was negative symptomatic treatment f/u troponin, negative now dc home when ok with consultants Subjective ROS Limited/Unobtainable: No HEENT: Repors: no symptoms Respiratory: Reports: no symptoms Cardiovascular: Reports: no symptoms Allergies: Coded Allergies: No Known Allergies (Unverified , 05/15/15) Objective Last 24 Hour Vital Signs Date Time Temp Pulse Resp B/P (MAP) Pulse Ox O2 Delivery O2 Flow Rate FiO2 06/08/17 08:15 149/73 06/08/17 08:14 71 149/73 06/08/17 08:05 67 18 Room Air 21 06/08/17 08:00 60 06/08/17 08:00 98.1 63 20 138/91 100 Room Air 06/08/17 04:00 98.1 59 17 149/73 100 Room Air 06/08/17 04:00 71 06/08/17 00:00 62 06/08/17 00:00 98.1 61 18 116/77 98 Room Air 06/07/17 20:49 71 127/64 06/07/17 20:00 58 06/07/17 20:00 98.0 71 18 127/64 99 Room Air 06/07/17 19:30 62 18 Room Air 21 06/07/17 16:00 70 06/07/17 16:00 97.9 63 18 119/68 100 Room Air General Appearance: WD/WN HEENT: normocephalic, atraumatic Respiratory/Chest: chest wall non-tender, normal breath sounds Abdomen: normal bowel sounds, soft, non tender, no organomegaly Extremities: no clubbing Skin: no lesions 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, no motor/sensory deficits Lymphatic: no neck adenopathy Laboratory Tests 06/08/17 04:15: White Blood Count 3.4L, Red Blood Count 3.41L, Hemoglobin 10.1L, Hematocrit 31.7L, Mean Corpuscular Volume 93, Mean Corpuscular Hemoglobin 29.6, Mean Corpuscular Hemoglobin Concent 31.8L, Red Cell Distribution Width 12.8, Platelet Count 125L, Mean Platelet Volume 8.8, Neutrophils (%) (Auto) , Lymphocytes (%) (Auto) , Monocytes (%) (Auto) , Eosinophils (%) (Auto) , Basophils (%) (Auto) , Sodium Level 136, Potassium Level 3.9, Chloride Level 104 , Carbon Dioxide Level 24, Anion Gap 8, Blood Urea Nitrogen 13, Creatinine 1.2, Estimat Glomerular Filtration Rate > 60, Glucose Level 69L, Calcium Level 8.4L Current Medications Medications (Trade) Dose Ordered Sig/Vilma Route PRN Reason Start Time Stop Time Status Last Admin Dose Admin Acetaminophen (Tylenol) 650 mg Q4H PRN ORAL FEVER 06/02/17 21:15 07/02/17 21:14 Amiodarone HCl (Cordarone) 200 mg DAILY ORAL 06/03/17 09:00 07/03/17 08:59 06/08/17 08:14 Aspirin (ASA) 162 mg DAILY ORAL 06/03/17 09:00 07/03/17 08:59 06/08/17 08:13 Carvedilol (Coreg) 3.125 mg EVERY 12 HOURS ORAL 06/03/17 09:00 07/03/17 08:59 06/08/17 08:14 Chlorhexidine Gluconate (Genesis-Hex 2%) 1 applic DAILY@2000 TOPIC 06/05/17 20:00 07/05/17 19:59 06/07/17 20:48 Clonazepam (KlonoPIN) 0.5 mg BEDTIME ORAL 06/02/17 22:00 06/09/17 21:59 06/07/17 20:49 Dextrose (Dextrose 50%) STAT PRN IV Hypoglycemia 06/02/17 21:15 07/02/17 21:14 Diltiazem HCl (Cardizem) 10 mg Q1H PRN IV heart rate more than 120, 06/02/17 21:15 07/02/17 21:14 Gabapentin (Neurontin) 300 mg THREE TIMES A DAY ORAL 06/03/17 09:00 07/03/17 08:59 06/08/17 08:15 Heparin Sodium (Porcine) (Heparin 5000 units/ml) 5,000 units EVERY 12 HOURS SUBQ 06/07/17 21:00 07/07/17 20:59 06/08/17 08:21 Lisinopril (Zestril) 2.5 mg DAILY ORAL 06/04/17 09:00 07/04/17 08:59 06/08/17 08:15 Morphine Sulfate (Morphine 5mg/ 2.5ml Oral Soln) 6 mg Q4H PRN ORAL SEVERE PAIN, IF ABLE TO TAKE O 06/03/17 15:45 07/03/17 15:44 06/08/17 08:35 Nitroglycerin (Ntg) 0.4 mg Every 5 Minutes PRN SL Prn Chest Pain 06/02/17 21:15 07/02/17 21:14 Ondansetron HCl (Zofran) 4 mg Q6H PRN IVP Nausea & Vomiting 06/02/17 21:15 07/02/17 21:14 Pantoprazole (Protonix) 40 mg DAILY ORAL 06/03/17 09:00 07/03/17 08:59 06/08/17 08:15 Polyethylene Glycol (Miralax) 17 gm DAILYPRN PRN ORAL Constipation 06/02/17 21:15 07/02/17 21:14 06/08/17 08:35 Temazepam (Restoril) 15 mg HSPRN PRN ORAL Insomnia 06/02/17 21:15 06/09/17 21:14 DEBORAH JACKSON Jun 08, 2017 12:48
--- NOTE | 2017-06-08 14:33 | Cardiology Progress Note ---
Assessment/Plan Assessment/Plan 1. Atypical chest pain. 2. Nonspecific abnormal cardiac enzymes. 3. Mild renal insufficiency. 4. Abnormal liver function tests. 5. History of stroke. 6. History of intracardiac defibrillator implantation. 7. thrombocytopenia trop now remain normal still with cp seem s reporoducile on palp on recheck to day likey m/s stress test neg infact ef 70% !!! plt count fine on repeat testing yest and today dc tele ok to dc Subjective Cardiovascular: Reports: chest pain Respiratory: Denies: shortness of breath Gastrointestinal/Abdominal: Denies: abdominal pain Genitourinary: Denies: burning Objective Last 24 Hour Vital Signs Date Time Temp Pulse Resp B/P (MAP) Pulse Ox O2 Delivery O2 Flow Rate FiO2 06/08/17 08:15 149/73 06/08/17 08:14 71 149/73 06/08/17 08:05 67 18 Room Air 21 06/08/17 08:00 60 06/08/17 08:00 98.1 63 20 138/91 100 Room Air 06/08/17 04:00 98.1 59 17 149/73 100 Room Air 06/08/17 04:00 71 06/08/17 00:00 62 06/08/17 00:00 98.1 61 18 116/77 98 Room Air 06/07/17 20:49 71 127/64 06/07/17 20:00 58 06/07/17 20:00 98.0 71 18 127/64 99 Room Air 06/07/17 19:30 62 18 Room Air 21 06/07/17 16:00 70 06/07/17 16:00 97.9 63 18 119/68 100 Room Air General Appearance: alert Cardiovascular: normal rate, regular rhythm Respiratory/Chest: lungs clear Abdomen: normal bowel sounds, non tender, soft Laboratory Tests Test 06/08/17 04:15 White Blood Count 3.4 K/UL (4.8-10.8) L Red Blood Count 3.41 M/UL (4.20-5.40) L Hemoglobin 10.1 G/DL (12.0-16.0) L Hematocrit 31.7 % (37.0-47.0) L Mean Corpuscular Volume 93 FL (80-99) Mean Corpuscular Hemoglobin 29.6 PG (27.0-31.0) Mean Corpuscular Hemoglobin Concent 31.8 G/DL (32.0-36.0) L Red Cell Distribution Width 12.8 % (11.6-14.8) Platelet Count 125 K/UL (150-450) L Mean Platelet Volume 8.8 FL (6.5-10.1) Neutrophils (%) (Auto) % (45.0-75.0) Lymphocytes (%) (Auto) % (20.0-45.0) Monocytes (%) (Auto) % (1.0-10.0) Eosinophils (%) (Auto) % (0.0-3.0) Basophils (%) (Auto) % (0.0-2.0) Sodium Level 136 MMOL/L (136-145) Potassium Level 3.9 MMOL/L (3.5-5.1) Chloride Level 104 MMOL/L (98-107) Carbon Dioxide Level 24 MMOL/L (21-32) Anion Gap 8 mmol/L (5-15) Blood Urea Nitrogen 13 mg/dL (7-18) Creatinine 1.2 MG/DL (0.55-1.30) Estimat Glomerular Filtration Rate > 60 mL/min (>60) Glucose Level 69 MG/DL (74-106) L Calcium Level 8.4 MG/DL (8.5-10.1) PRIETO ARMENDARIZ Jun 08, 2017 14:33
[2017-06-08 16:00] VITALS: BP 131/86
--- NOTE | 2017-06-08 17:46 | Internal Med Progress Note ---
Subjective Date of Service: Jun 08, 2017 Physician Name MargaritaKathy Attending Physician Ángel Almonte MD Current Medications Medications (Trade) Dose Ordered Sig/Vilma Route PRN Reason Start Time Stop Time Status Last Admin Dose Admin Acetaminophen (Tylenol) 650 mg Q4H PRN ORAL FEVER 06/02/17 21:15 07/02/17 21:14 Amiodarone HCl (Cordarone) 200 mg DAILY ORAL 06/03/17 09:00 07/03/17 08:59 06/08/17 08:14 Aspirin (ASA) 162 mg DAILY ORAL 06/03/17 09:00 07/03/17 08:59 06/08/17 08:13 Carvedilol (Coreg) 3.125 mg EVERY 12 HOURS ORAL 06/03/17 09:00 07/03/17 08:59 06/08/17 08:14 Chlorhexidine Gluconate (Genesis-Hex 2%) 1 applic DAILY@2000 TOPIC 06/05/17 20:00 07/05/17 19:59 06/07/17 20:48 Clonazepam (KlonoPIN) 0.5 mg BEDTIME ORAL 06/02/17 22:00 06/09/17 21:59 06/07/17 20:49 Dextrose (Dextrose 50%) STAT PRN IV Hypoglycemia 06/02/17 21:15 07/02/17 21:14 Diltiazem HCl (Cardizem) 10 mg Q1H PRN IV heart rate more than 120, 06/02/17 21:15 07/02/17 21:14 Gabapentin (Neurontin) 300 mg THREE TIMES A DAY ORAL 06/03/17 09:00 07/03/17 08:59 06/08/17 17:31 Heparin Sodium (Porcine) (Heparin 5000 units/ml) 5,000 units EVERY 12 HOURS SUBQ 06/07/17 21:00 07/07/17 20:59 06/08/17 08:21 Lisinopril (Zestril) 2.5 mg DAILY ORAL 06/04/17 09:00 07/04/17 08:59 06/08/17 08:15 Morphine Sulfate (Morphine 5mg/ 2.5ml Oral Soln) 6 mg Q4H PRN ORAL SEVERE PAIN, IF ABLE TO TAKE O 06/03/17 15:45 07/03/17 15:44 06/08/17 08:35 Nitroglycerin (Ntg) 0.4 mg Every 5 Minutes PRN SL Prn Chest Pain 06/02/17 21:15 07/02/17 21:14 Ondansetron HCl (Zofran) 4 mg Q6H PRN IVP Nausea & Vomiting 06/02/17 21:15 07/02/17 21:14 Pantoprazole (Protonix) 40 mg DAILY ORAL 06/03/17 09:00 07/03/17 08:59 06/08/17 08:15 Polyethylene Glycol (Miralax) 17 gm DAILYPRN PRN ORAL Constipation 06/02/17 21:15 07/02/17 21:14 06/08/17 08:35 Temazepam (Restoril) 15 mg HSPRN PRN ORAL Insomnia 06/02/17 21:15 06/09/17 21:14 Allergies: Coded Allergies: No Known Allergies (Unverified , 05/15/15) ROS Limited/Unobtainable: No Constitutional: Reports: no symptoms HEENT: Reports: no symptoms Cardiovascular: Reports: no symptoms Respiratory: Reports: no symptoms Gastrointestinal/Abdominal: Reports: no symptoms Genitourinary: Reports: no symptoms Neurologic/Psychiatric: Reports: no symptoms Subjective 37 YO F admitted with chest pain. Cover for Int Med-Dr Almonte. Await discharge home today Objective Last Vital Signs Date Time Temp Pulse Resp B/P (MAP) Pulse Ox O2 Delivery O2 Flow Rate FiO2 06/08/17 16:00 97.8 99 20 131/86 99 Room Air 06/08/17 08:05 21 Laboratory Tests Test 06/08/17 04:15 White Blood Count 3.4 K/UL (4.8-10.8) L Red Blood Count 3.41 M/UL (4.20-5.40) L Hemoglobin 10.1 G/DL (12.0-16.0) L Hematocrit 31.7 % (37.0-47.0) L Mean Corpuscular Volume 93 FL (80-99) Mean Corpuscular Hemoglobin 29.6 PG (27.0-31.0) Mean Corpuscular Hemoglobin Concent 31.8 G/DL (32.0-36.0) L Red Cell Distribution Width 12.8 % (11.6-14.8) Platelet Count 125 K/UL (150-450) L Mean Platelet Volume 8.8 FL (6.5-10.1) Neutrophils (%) (Auto) % (45.0-75.0) Lymphocytes (%) (Auto) % (20.0-45.0) Monocytes (%) (Auto) % (1.0-10.0) Eosinophils (%) (Auto) % (0.0-3.0) Basophils (%) (Auto) % (0.0-2.0) Sodium Level 136 MMOL/L (136-145) Potassium Level 3.9 MMOL/L (3.5-5.1) Chloride Level 104 MMOL/L (98-107) Carbon Dioxide Level 24 MMOL/L (21-32) Anion Gap 8 mmol/L (5-15) Blood Urea Nitrogen 13 mg/dL (7-18) Creatinine 1.2 MG/DL (0.55-1.30) Estimat Glomerular Filtration Rate > 60 mL/min (>60) Glucose Level 69 MG/DL (74-106) L Calcium Level 8.4 MG/DL (8.5-10.1) L Objective General Appearance: WD/WN, no apparent distress, alert EENT: PERRL/EOMI, normal ENT inspection, TMs normal Neck: non-tender, normal alignment, supple Cardiovascular: normal peripheral pulses, normal rate, regular rhythm, no gallop/murmur, no JVD Respiratory/Chest: chest wall non-tender, lungs clear, normal breath sounds, no respiratory distress, no accessory muscle use Abdomen: normal bowel sounds, non tender, soft, no organomegaly, no mass Extremities: normal range of motion, non-tender 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 (2) ACS (acute coronary syndrome) (3) CAD (coronary artery disease) (4) Chest pain Assessment & Plan: S/P Cardiac stress test 06/07/17=non-ischemic (5) HTN (hypertension) Assessment & Plan: Cont coreg and lisinopril (6) Cerebral vascular disease (7) Left hemiparesis (8) Hypercholesteremia (9) Asthma (10) AICD (automatic cardioverter/defibrillator) present Assessment & Plan: See EP cardiology note. Assessment/Plan D/C home today KATHY CAMPUZANO Jun 08, 2017 17:46
--- NOTE | 2017-06-10 16:11 | Discharge Summary ---
Discharge Summary Hospital Course Date of Admission Jun 02, 2017 at 18:35 Date of Discharge Jun 08, 2017 at 18:08 Admitting Diagnosis CHEST PAIN,ACS HPI Ruthy Olmos is a 37 year old female who was admitted on Jun 02, 2017 at 18: 35 for Chest Pain, Acute Coronary Syndrome Hospital Course [id number] Discharge Discharge Disposition Patient was discharged to home Discharge Diagnoses: Becky Leal NP Jun 10, 2017 16:11
--- NOTE | 2017-06-10 16:11 | Discharge Summary ---
Discharge Summary Hospital Course Date of Admission Jun 02, 2017 at 18:35 Date of Discharge Jun 08, 2017 at 18:08 Admitting Diagnosis CHEST PAIN,ACS HPI Ruthy Olmos is a 37 year old female who was admitted on Jun 02, 2017 at 18: 35 for Chest Pain, Acute Coronary Syndrome Hospital Course [id number] Discharge Discharge Disposition Patient was discharged to home Discharge Diagnoses: Becky Leal NP Jun 10, 2017 16:11
--- NOTE | 2017-06-10 16:11 | Discharge Summary ---
Discharge Summary Hospital Course Date of Admission Jun 02, 2017 at 18:35 Date of Discharge Jun 08, 2017 at 18:08 Admitting Diagnosis CHEST PAIN,ACS HPI Ruthy Olmos is a 37 year old female who was admitted on Jun 02, 2017 at 18: 35 for Chest Pain, Acute Coronary Syndrome Hospital Course [id number] Discharge Discharge Disposition Patient was discharged to home Discharge Diagnoses: Becky Leal NP Jun 10, 2017 16:11
--- NOTE | 2017-06-10 22:00 | Discharge Summary 2 SIG ---
DATE OF ADMISSION: 06/02/2017 DATE OF DISCHARGE: 06/08/2017 CONSULTANTS: 1. Julian Malagon M.D. 2. Jian Rodriguez M.D. 3. Arlene Vallecillo M.D. BRIEF HOSPITAL COURSE: The patient is a 37-year-old female, who presented to ED for complaints of chest pain. She has history of coronary artery disease and status post myocardial infarction in 2011. She also had automatic implanted cardioverter defibrillator placement. She complained of one day duration left-sided chest pain that occurred at rest. The pain was described to be located substernally with no radiation to the jaw or left shoulder. On evaluation at ED, initial troponin was elevated to 0.082. EKG was in normal sinus rhythm with T-wave flattening in the lateral leads. She was given aspirin. Chest x-ray showed no acute disease. She was admitted to telemetry for acute coronary syndrome. Cardiac enzymes were monitored. She underwent venous duplex of lower extremity that was negative for DVT and echocardiogram showed global ventricular hypokinesis, LVEF 45%. There was trace aortic regurgitation, mitral regurgitation, and mild tricuspid regurgitation. Cholesterol panel was checked. LDL was elevated and TSH was 0.354. The patient's cardiac enzymes were minimally elevated, however, did not reach the level for diagnosis of myonecrosis and is not suggestive of coronary syndrome. She has a [employer] pacemaker defibrillator implanted. Interrogation done showed normal function except for some episodes of SVT. She was continued on aspirin, amiodarone, and Coreg 3.125 mg b.i.d. She had a PICC line placed to the right arm. She underwent myocardial perfusion test, results were nonischemic with calculated post stress ejection fraction of 71%. She was eventually discharged home via ambulance. FINAL DIAGNOSES: 1. Coronary artery disease. 2. Hypertension. 3. Cerebrovascular disease. 4. Left hemiparesis. 5. Hypercholesterolemia. 6. Asthma. 7. Automatic implanted cardioverter defibrillator. 8. Mild renal insufficiency. 9. Elevated abnormal liver function tests. 10. Thrombocytopenia. 11. Status post [employer] implanted cardioverter defibrillator implantation. 12. Cardiomyopathy. DISPOSITION: The patient was discharged home. DISCHARGE MEDICATIONS: Refer to medication list. Kiran Avila M.D. I have been assigned to dictate discharge summary on this account and I was not involved in the patient's management. Becky Leal N.P. DR: ADALI JOB#: [id number] CC: [id number]
== END 2017-06-08 18:08 | disposition home or self-care (01) | DRG 313 ==
LOC: EDBD 16:10 → EMR 16:44 → 2E 18:35 → EDBEDREQ 20:38 → 2E 06-05 05:11
PROC: 02HV33Z Insertion of Infusion Device into Superior Vena Cava, Percutaneous Approach (ICD-10-PCS; principal; 2017-06-07)
DX: R07.89 Other chest pain (principal); I25.2 Old myocardial infarction; I42.9 Cardiomyopathy, unspecified; D69.6 Thrombocytopenia, unspecified; I69.354 Hemiplegia and hemiparesis following cerebral infarction affecting left non-dominant side; I36.1 Nonrheumatic tricuspid (valve) insufficiency; I47.1 Supraventricular tachycardia; Z95.810 Presence of automatic (implantable) cardiac defibrillator; I10 Essential (primary) hypertension; I25.10 Atherosclerotic heart disease of native coronary artery without angina pectoris; E78.00 Pure hypercholesterolemia, unspecified; I48.0 Paroxysmal atrial fibrillation; I34.0 Nonrheumatic mitral (valve) insufficiency
CPT/HCPCS: 36415; 36569; 71010; 76937; 78452; 80048; 80053; 80061; 80307; 82550; 82553; 82962; 83880; 84443; 84484; 85007; 85025; 85610; 85730; 86140; 93005; 93017; 93306; 93970; 94664; 99285; J1815; J2785